=== PATIENT | female | born 1995 | race Caucasian/White ===

== ENCOUNTER 2023-09-18 17:36 | Inpatient (IN) | payer OTHER, SELFPAY ==
[2023-09-18 14:29] VITALS: BP 166/115
--- NOTE | 2023-09-18 14:57 | ED.GENMED ---
History of Present Illness
General
Chief Complaint: Musculo-Skeletal Complaint
Time Seen by Provider: 09/18/23 14:57
Travel History
Have you had any contact with someone who has COVID-19?: No
Do you have any symptoms of coronavirus? Fever > 100 degrees, chills, cough, shortness of breath, sore throat, loss of taste or smell, muscle aches, or headache?: No
History of Present Illness
History of Present Illness:
HPI: Patient presents due to concerns of pain and swelling to the left second digit. She reports fevers over the last 3 nights. She has been to urgent care twice where they placed her on Levaquin and clindamycin. She contacted Dr. Howard's
office who told her to come in here for further evaluation. She tells me that she is had surgery with one of Dr. Taveras's associates with [facility] a few months ago. She reports pain to the affected digit along with decreased sensation of
the radial aspect of the affected digit.
EXAM:
GENERAL: Well appearing in mild distress
HEENT: Poor dentition
CARDIOVASCULAR: No murmurs, tachycardic heart rate, regular rhythm, No chest wall tenderness
PULMONARY: No respiratory distress, breath sounds are clear and equal
ABDOMEN: Soft with no peritoneal signs, no tenderness
NEUROLOGIC: Excellent strength all extremities, no coordination deficits, there is decreased sensation to the radial aspect of the left second digit
PSYCHIATRIC: Appropriate mental status, normal insight and judgement
EXTREMITIES: There is some concern for flexor tenosynovitis to the left second digit as there is diffuse swelling and there is marked tenderness along the flexor tendon. There is also dorsal linear erythema progressing to the mid forearm.
SKIN: Multiple surgical scars noted to the upper extremities
TIME OF INITIAL ENCOUNTER: 3 PM
NUMBER AND COMPLEXITY OF PROBLEMS ADDRESSED AT THE ENCOUNTER
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
� Acute Exacerbation and/or Progression of Chronic Illness: This is an acute problem
� Differential Diagnosis includes: Flexor tenosynovitis, bacteremia, sepsis, cellulitis
AMOUNT AND/OR COMPLEXITY OF DATA TO BE REVIEWED AND ANALYZED
� I performed an independent evaluation of and my interpretation is:
EKG:
CT:
X-rays:
Laboratory Studies: White count 6.0, lactic 2.2 but patient is on metformin, CRP slightly elevated 12.2, glucose 326
Other:
� Review of other/old records: I reviewed discharge summary from last year that showed she was admitted here with a hemoperitoneum from a ruptured left ovarian cyst
� Clinical information was obtained by an independent historian: None needed
� Prescriptions/Medications Considered but not given:
� Further testing considered but not performed:
RISK OF COMPLICATIONS AND/OR MORBIDITY OR MORTALITY OF PATIENT MANAGEMENT
� Social determinants of health affecting care: Lives at home
� Discussion with other providers: Interventional radiology for line placement as well as Dr. Howard. Dr. Howard recommends IV antibiotics and admission to hospitalist service.
� Escalation of care including admission/observation vs risk of discharge considered: Upon arrival, the patient is found to be tachycardic. She reports fevers at home but is currently afebrile. I do have concerns for flexor
tenosynovitis. Since the patient states that Dr. Howard office sent her in, I did send a message to Dr. Howard. He recommends admission to hospitalist for IV antibiotics and he will see in consultation. The patient has requested Dilaudid
multiple times. I did give IV doses as she does have a seemingly painful condition which does appear to be acute
Past History
Past History
ED Past Medical History: HTN, Hypercholesterolemia, IDDM and Other (Deep vein thrombosis/PE, Kidney stones, UTI, Ulcers,)
ED Past Surgical History: Appendectomy, Orthopedic and Other (Tympanostomy tubes, wisdom teeth extraction. Nasal surgery)
Patient has exhibited threatening behavior?: No
PSI?: No
Social History
Tobacco: Non-smoker
Alcohol: None
Drug: None
Personal: Single
Living: with family
Family History
Family History: Other (Noncontributory)
Phy Exam
Physical Exam
Physical Exam:
See HPI
Course
Orders/Labs/Results
Orders:
Orders
09/18/23 Breakfast
2200 calorie (18 carb) Diabetic
09/18/23 Dinner
2200 calorie (18 carb) Diabetic
09/18/23 16:00
Blood Culture Q30M
ANAMIKA Source: Blood/Venous
Specimen Description:
VANCOMYCIN Pharmacy to Dose [VANCOCIN Pharmacy to Dose] 1 each Pharmacy To Prepare [Call Pharmacy To Prepare] 0 ml IV PER PROTOCOL
09/18/23 16:08
Basic Metabolic Panel Urgent
CRP [C-Reactive Protein] Urgent
Complete Blood Count/With Diff Urgent
Lactic Acid Q4H
Comment: CANCEL 2nd LACTIC ACID IF 1st LACTIC ACID IS LESS THAN 2
Blood Culture Q30M
ANAMIKA Source: Blood/Venous
Specimen Description:
09/18/23 16:33
Diphenhydramine [Benadryl] 50 mg IV NOW STA
HYDROmorphone [Dilaudid] 1 mg IV NOW STA
09/18/23 16:40
Vancomycin [Vancocin] 2,000 mg 0.9% Sodium Chloride 500 ml [Nss] 500 ml IV NOW
09/18/23 17:05
HYDROmorphone [Dilaudid] 1 mg IV NOW STA
09/18/23 17:18
Prothrombin Time Urgent
09/18/23 17:20
Admit/Transfer Patient As Directed
Co-Sign Provider:
Level of Care: Inpatient admission
Assign to:: Telemetry
Physician / Group: do
Diagnosis: cellulitis
Reason for Telemetry: Other
Other Reason for Telemetry: sepsis
Date to Stop Telemetry: 09/20/23
Time to Stop Telemetry: 11:00
Reason for Hospitalization: cellulitis
Expected length of stay greater than two midnights?: Yes
ELOS- Estimated Length of Stay in days: 3
I certify the patient meets the requirements for IP care: Yes
09/18/23 17:23
Code Status As Directed
Resuscitation Status: Full Code
09/18/23 19:30
Lactic Acid Q4H
Comment: CANCEL 2nd LACTIC ACID IF 1st LACTIC ACID IS LESS THAN 2
09/18/23 19:40
0.9% Sodium Chloride 1000 ml [Nss] 1,000 ml IV 80 mls/hr
Acetaminophen [Tylenol] 650 mg PO Q4HPRN PRN
Cyclobenzaprine HCl [Flexeril] 10 mg PO TIDPRN PRN
Dextrose 50%-Water [Dextrose 50% Syringe] 12.5 grams IV [id number] PRN
Glucagon [GlucaGen] 1 mg IM PRN PRN
HYDROmorphone [Dilaudid] 2 mg IV Q3HPRN PRN
Lorazepam [Ativan] 1 mg PO Q8H
Naloxone [Narcan] 0.4 mg IV ONCE PRN PRN
Ondansetron Injectable [Zofran] 4 mg IV Q6HPRN PRN
Oxycodone [Roxicodone] 30 mg PO Q4HPRN PRN
Warfarin [Coumadin] 5 mg PO QPM
09/18/23 19:40
ORTHOPEDIC CONSULT Routine
Consulting Provider: Syed Howard
Was physician already notified: Yes
Activity As Directed
Activity Level: Out of Bed-Early Mobility
Bedside Glucose Monitoring As Directed
Frequency: AC&HS
Comment: Change to q6h if pt on TPN, tube feeding or not eating
Intake/ Output As Directed
Frequency: Per unit guidelines
Vital Signs As Directed
Frequency: Per unit guidelines
09/18/23 19:58
Budesonide/Formoterol 160/4.5 [Symbicort 160/4.5 Mcg Inhaler] 2 puff INH R BID PRN
09/18/23 20:00
Ferrous Sulfate [Feosol] 325 mg PO BID
MetroNIDAZOLE 500 MG/100 ML [Flagyl 500 mg] 100 ml IV Q8H
insulin glargine [Lantus Solostar U-100 Insulin] 40 unit SC BID
09/18/23 22:00
Clonidine [Catapres] 0.1 mg PO TID
Melatonin 9 mg PO HS
09/19/23 00:00
Gabapentin [Neurontin] 900 mg PO Q8
09/19/23 06:00
Basic Metabolic Panel IN AM
Complete Blood Count/No Diff IN AM
Glycohemoglobin (HgbA1c) IN AM
Prothrombin Time IN AM
09/19/23 07:30
Insulin Aspart Corrective Mod [Novolog Flexpen-Moderate Resistance] See Protocol SC AC
Insulin Aspart Pen [Novolog Flexpen] 15 units SC AC
09/19/23 08:00
Atorvastatin [Lipitor] 20 mg PO DAILY
Bupropion(24Hr)Extended Releas [WELLBUTRIN XL (24 hour extended release)] 150 mg PO DAILY
Clopidogrel Bisulfate [Plavix] 75 mg PO DAILY
09/20/23 06:00
Basic Metabolic Panel IN AM
Complete Blood Count/No Diff IN AM
Prothrombin Time IN AM
09/20/23 11:00
DC Protocol for Telemetry ONCE
09/21/23 06:00
Basic Metabolic Panel IN AM
Complete Blood Count/No Diff IN AM
Prothrombin Time IN AM
09/22/23 06:00
Basic Metabolic Panel IN AM
Complete Blood Count/No Diff IN AM
Prothrombin Time IN AM
09/23/23 06:00
Complete Blood Count/No Diff IN AM
Prothrombin Time IN AM
Abnormal Lab Results
09/18/23
16:08
Hct 35.8 L %
(37.0-47.0)
MCV 75.7 L fL
(81.0-99.0)
MCH 25.8 L pg
(27.0-31.0)
Lymphocytes % 19.4 L %
(20.5-51.1)
Eosinophils % 7.8 H %
(0-6)
Sodium 132 L mmol/L
(135-145)
BUN 6 L mg/dl
(7-17)
Creatinine 0.5 L mg/dL
(0.6-1.0)
Glucose 334 H mg/dl
(70-99)
Lactic Acid 2.2 H mmol/L
(0.7-2.0)
C-Reactive Protein 12.20 H mg/L
(0.0-10.00)
09/18/23 16:08
09/18/23 16:08
Vital Signs
Initial and Last Documented VS:
Initial Vital Signs
Temp Pulse Resp BP Pulse Ox
99.2 F 130 18 166/115 97
09/18/23 14:29 09/18/23 14:29 09/18/23 14:29 09/18/23 14:29 09/18/23 14:29
Last Documented Vital Signs
Temp Pulse Resp BP Pulse Ox
99.5 F 129 18 153/100 100
09/18/23 19:40 09/18/23 19:40 09/18/23 19:40 09/18/23 19:40 09/18/23 19:40
*Critical Care Note
Total Time (30-74mins, 75-104mins- exclusive of procedures): Not Applicable
ED Attending Note
-
Portions of this chart may have been created with voice recognition software.� Occasional wrong word or��sound alike� substitutions may have occurred due to the inherent limitations of voice recognition software.
Discharge Plan
Departure
Patient Disposition: Admit
Date of Disposition: 09/18/23
Time of Disposition: 16:38
Presentation/result/management discussed w/ accepting MD/DO: Hospitalist
Discharge Problem:
Cellulitis
Interventions
Interventions:
*Risk Screen - Suicide Last Done: 09/18/23 14:33
*General Assessment Last Done: 09/18/23 14:33
*Neglect/Abuse Screening Last Done: 09/18/23 14:33
ED- Fall Risk Assessment Last Done: 09/18/23 15:35
*ED COVID-19 Vaccine History Last Done: 09/18/23 14:34
*Nursing Disposition Last Done: 09/18/23 18:31
ED-Musculoskeletal Assessment Last Done: 09/18/23 15:35
Discharge Date and Time
Discharge Date/Time: 09/18/23 19:30
[2023-09-18 15:34] VITALS: BMI 39.0
--- NOTE | 2023-09-18 16:12 | EDRN ---
Pt states she is leaving. Pt is upset and states (about her IV saying) it is no good only working barely and you can't put Vanco throught that.' Pt continues saying, 'I want to leave. I am going to leave as I'm in a lot of pain. My hand is really
hurting and the IV in my other arm too.' Pt talking on phone saying 'Pain is only getting worse and they cannot do anything about it.'
--- NOTE | 2023-09-18 16:16 | EDRN ---
Pt states, (about Dr. Raphael) 'he doesn't care. He has other patients. He doesn't care if I leave.' Pt is on phone w/ someone saying these things while crying loudly.
--- NOTE | 2023-09-18 16:18 | EDRN ---
Pt stated to me 'its falling out.' Pt was picking at the dressing and it was slightly loose. Pt is now in BR on phone talking in a very loud voice. Dr. Raphael to room to see pt just as pt left bed and went into BR. Pt now stating, 'I
cannot stand this pain.'
--- NOTE | 2023-09-18 16:20 | EDRN ---
Pt was informed that physician was in to see her. Pt continues to speak to someone on the phone. This RN informed pt that DR. Raphael was in to see her and when she is out of BR he will return. Pt said to me, 'I am going to pee and then I'm
leaving.' Pt stating 'this is all fucking shit.'
[2023-09-18 16:22] LABS: % Basophils 0.7 % (0-2); % Eosinophils 7.8 % (0-6); % Immature Granulocytes 0.3 % (0-0.5); % Lymphocytes 19.4 % (20.5-51.1); % Neutrophils 65.8 % (42.2-75.2); Absolute Eosinophils 0.5 10^3/uL (0-0.7); Absolute Lymphocytes 1.2 10^3/uL (1.2-3.4); Absolute Monocytes 0.4 10^3/uL (0.1-0.6); Hematocrit 35.8 % (37.0-47.0); Hemoglobin 12.2 g/dL (12.0-16.0); Mean Corp Hgb Conc. 34.1 g/dL (33.0-37.0); Mean Corpuscular Hgb 25.8 pg (27.0-31.0); Mean Corpuscular Volume 75.7 fL (81.0-99.0); Mean Platelet Volume 9.3 fL (7.4-10.4); Nucleated Red Blood Cells % 0 %; Platelet Count 275 10^3/uL (130-400); Red Blood Cell Count 4.73 10^6/uL (4.20-5.40); Red Cell Dist. Width 13.9 % (11.5-14.5)
--- NOTE | 2023-09-18 16:23 | EDRN ---
satellite tv technician was here to check on pt's medications. I asked pt if she could do a med rec w/ pt. Pt stated, 'I am not fucking talk to her.' Pt continues to talk on her phone.
--- NOTE | 2023-09-18 16:25 | EDRN ---
Pt just stated to person on phone, 'I'm going to take my own IV out. Dr. Henson in room w/ pt at this time.
--- NOTE | 2023-09-18 16:28 | PHANOTE ---
Med Rec Note:
Attempted to interview pt prior to IV placement, pt was able to confirm 2 of her medications. Pt refused to continue interview after IV placement.
Home med list compiled from Dr Bunn, unsure if pt is still taking medications reported from prior interview with pharmacy from 03/13/23. Those medications are left unconfirmed, along with medications from in Dr Bunn.
Asked to continue interview again, after reading notes from the provider. Pt refused interview again.
Charge was consulted and was able to obtain pt's medication history.
--- NOTE | 2023-09-18 16:29 | EDRN ---
Natividad Lion in speaking w/ pt about pain medication. Pt stated to Dr. Henson 'I need 2mg of Dilaudid.'
--- NOTE | 2023-09-18 16:31 | EDRN ---
Pt has decided to stay as IV pain medication is ordered.
[2023-09-18 16:37] LABS: Lactic Acid 2.2 mmol/L (0.7-2.0)
--- NOTE | 2023-09-18 16:38 | EDRN ---
Pharmacy called to mix and send Vancomycin at this time.
[2023-09-18 16:46] LABS: Blood Urea Nitrogen 6 mg/dl (7-17); Calcium 9.2 mg/dl (8.4-10.2); Carbon Dioxide 23 mmol/L (22-30); Chloride 98 mmol/L (98-107); Estimated Creatinine Clearance > 125 ml/min; Glucose 334 mg/dl (70-99); Sodium 132 mmol/L (135-145); eGFR > 60.00
[2023-09-18] MEDS: BENADRYL 50 MG IV (16:48)
[2023-09-18] MEDS: DILAUDID 1 MG IV ×3 (16:48→18:14)
--- NOTE | 2023-09-18 16:48 | EDRN ---
Pt was administered 2nd dose of dilaudid at this time. Pt was observed, after IV checked w/ good blood return and flushed w/ ease, pulling on IV at its hub saying to this nurse, 'I have to pull back on this as the vancomycin ledesma.'
--- NOTE | 2023-09-18 16:50 | HPS.HSE ---
Addendum entered and electronically signed by Alan Rock MD 09/18/23 17:57:
I have personally seen and examined the patient, and agree with the plan of care as documented by JAYLENE Pena.
Advance care planning discussed, patient is a full code.
All other issues as outlined by the advanced care practitioner.
Addendum entered and electronically signed by Alan Rock MD 09/18/23 17:39:
27-year-old female with a past medical history of morbid obesity, type 2 diabetes, anxiety, factor V Leyden, PE/DVT on Coumadin, May-Thurner syndrome, and chronic constipation presents with worsening redness, pain of her left second finger. Patient
states that she underwent a left trigger finger release in the hospital at [place] recently, that got infected. Despite finishing a course of clindamycin and Levaquin 4 days ago, her left second digit has become more erythematous, swollen, and is
not able to bend. She reports fevers at night. She has many drug allergies.
Will treat with IV vancomycin, IV Flagyl. Consult orthopedic surgery.
Patient reports she takes oxycodone 30 mg every 4 hours as needed, and while in the hospital at [place], she was given Dilaudid 3 mg IV as needed.
Will continue her oxycodone 30 mg every 4 hours as needed, I can only order her Dilaudid 2 mg IV every 3 hours here, [employer] has a limit.
Will request records from [facility].
Total time spent to see the patient on the floor, examine the patient, review data and lab results, discuss treatment plan with patient, nursing staff around 75 minutes.
Original Note:
Family Physician
-
Family Physician: Jose Alejandro Fox
Chief Complaint
-
fever
left hand redness
History of Present Illness
27 year old with PMH for Chronic Pain Syndrome,Hypertension,Factor V Leiden Deficiency,May-Thurner Syndrome.DM-II with Insulin Pump,Nephrolithiasis,Urinary Retention, Chronic Constipation presented to us with left hand pain, redness and swelling to
the left second digit. patient stated, she was on Levaquin and clindamycin for 2 weeks. But her symptoms persisted. She contacted Dr. Howard's office who told her to come in here for further evaluation. She had surgery for trigger finger couple
months ago. Since then, she noticed decreased sensation. Patient stated fever of 101 for last 3 nights. Patient denied runny nose, nasal congestion, cough. Patient denied headache, dizziness, syncopal episode. Patient denied chest pain, short
of breath. Denied abdominal pain nausea, vomiting. Stated diarrhea from antibiotics denied dysuria hematuria.
Patient initiated on IV vancomycin in ER. Admitting for further management.
Medical History
Past Medical History
Past Medical History: Reports Other
Additional Past Medical History:
Chronic Pain Syndrome
Hypertension
Factor V Leiden Deficiency
May-Thurner Syndrome
DM-II with Insulin Pump
Nephrolithiasis
Urinary Retention
Chronic Constipation
Obesity
Past Surgical History: Reports Other
Additional Past Surgical History:
Appendectomy
Sinus Surgery x 2
-trigger finger surgery
Social History
Tobacco: Non-smoker
Alcohol: None
Drug: None
Family History
Family History: Not pertinent
Allergies / Home Medications
Allergies reflects when Allergies were last updated in [facility].
Home Medications with original date entered in [facility]
Allergy/Medication List:
Allergies
Allergy/AdvReac Type Severity Reaction Status Date / Time
amoxicillin [Amoxicillin] Allergy Shortness Verified 09/18/23 14:27
of Breath
cephalexin Allergy tongue Verified 09/18/23 14:27
swelling/but
tolerated
cefepime,ceftriaxone,
etc.
haloperidol [From Haldol] Allergy Anaphylaxis Verified 09/18/23 14:27
haloperidol lactate Allergy Anaphylaxis Verified 09/18/23 14:27
[From Haldol]
Iodinated Contrast Media Allergy Itching Verified 09/18/23 14:27
ketorolac tromethamine Allergy Anaphylaxis Verified 03/13/23 13:59
[From Toradol]
linezolid [From Zyvox] Allergy Shortness Verified 09/18/23 14:27
of Breath
nystatin Allergy Rash Verified 09/18/23 14:27
Penicillins Allergy Shortness Verified 09/18/23 14:27
of Breath
Sulfa (Sulfonamide Allergy Hives Verified 09/18/23 14:27
Antibiotics)
sulfamethoxazole Allergy Hives Verified 09/18/23 14:27
[From Bactrim]
tramadol Allergy Anaphylaxis Verified 09/18/23 14:27
trimethoprim [From Bactrim] Allergy Hives Verified 09/18/23 14:27
Home Medications
clonidine HCl 0.1 mg tablet 0.1 mg PO TID Blood Pressure 07/27/18
gabapentin 300 mg capsule 900 mg PO Q8H Pain 10/27/18
bupropion HCl 150 mg 24 hr tablet, extended release 150 mg PO DAILY Depression 11/28/22
clopidogrel 75 mg tablet 75 mg PO DAILY Blood Clot Prevention/Tx 11/28/22
cyclobenzaprine 10 mg tablet 10 mg PO TIDPRN PRN muscle spasms 11/28/22
lorazepam 1 mg tablet 1 mg PO Q8H Mental Health/Anxiety 11/28/22
mometasone-formoterol HFA 200 mcg-5 mcg/actuation aerosol inhaler (Dulera) 2 puff inhalation R BID PRN Lung/Breathing Issues 11/29/22
insulin aspart U-100 100 unit/mL (3 mL) subcutaneous pen 0 - 32 sliding scale dose SC AC 03/13/23
insulin glargine 100 unit/mL (3 mL) subcutaneous pen (Lantus Solostar U-100 Insulin) 40 unit SC BID 03/13/23
warfarin 5 mg tablet 5 mg PO QPM Blood Clot Prevention/Tx 03/13/23
atorvastatin 20 mg tablet 20 mg PO DAILY 09/18/23
ferrous sulfate 325 mg (65 mg iron) tablet 325 mg PO BID 09/18/23
melatonin 3 mg tablet 9 mg PO HS 09/18/23
oxycodone 15 mg tablet 30 mg PO Q8H PRN moderate pain 09/18/23
Review of Systems
-
Constitutional: Reports Fever
EENT: Reports No Symptoms
Respiratory: Reports No Symptoms
Cardiac: Reports No Symptoms
Abdomen/GI: Reports No Symptoms
: Reports No Symptoms
Musculoskeletal: Reports Other (left hand redness, swelling)
Skin: Reports No Symptoms
Neurological: Reports No Symptoms
Endocrine: Reports No Symptoms
Hematologic/Lymphatic: Reports No Symptoms
Psych: Reports No Symptoms
Physical Exam
Vital Signs
Vital Signs
Temp Pulse Resp BP Pulse Ox
99.2 F 130 18 166/115 97
09/18/23 14:29 09/18/23 14:29 09/18/23 14:29 09/18/23 14:29 09/18/23 14:29
Physical Exam
General: Well Developed, Well Nourished and No Apparent Distress
HEENT: NormoCephalic, Moist mucous membranes and Atraumatic
Respiratory: Clear
Cardiac: S1/S2 and Regular Rhythm; No Murmur or Rub
GI: Soft, Non Tender, Non Distended and Normal Bowel Sounds; No Organomegaly
Rectal: Deferred by Provider
Musculoskeletal: No Clubbing, No Cyanosis and No Edema
Skin: Rash and Other (left hand, finger redness)
Neuro: AO x 3 and Nonfocal/grossly intact
Psych: Calm
Laboratory Results
-
09/18/23 16:08
09/18/23 16:08
Laboratory Results
Lactic Acid 2.2 mmol/L (0.7-2.0) H 09/18/23 16:08
Data Reviewed
-
Lab Data: Labs Reviewed by me
Impression/Plan
-
#sepsis/ left hand redness concern for flexor tenosynovitis of left 2nd digit
-lactic 2.2, CRP 12.20, tachy
-trend lactic
-IV Vanco and Flagyl
-Tylenol as needed for fever
-Fluids continued for hydration
-Dilaudid prn for apin
-Orthopedics consulted
# Hypertension emergency
-Blood pressure elevated in ER
-Clonidine continued
#LLE DVT
Factor V Leiden Deficiency
May-Thurner Syndrome
-Coumadin continued
-Daily PT/INR
# Chronic pain
Dilaudid 1.5 every 3 hours for pain
-Gabapentin continued
#DM-II with Hyperglycemia
-Lantus 40 units twice a day
-Sliding scale
#Anxiety / Depression
�- Continue Wellbutrin, gabapentin
-Lorazepam as needed Anxiety
�
#Obesity due to excess calories and insulin resistance
�- Affects all aspects of care.
�- Encourage healthy diet and increased activity with goal of weight loss.
#DVT Prophylaxis:�Coumadin
#Code Status:�Full
[2023-09-18] MEDS: VANCOCIN 540 MG IV (16:55)
--- NOTE | 2023-09-18 16:59 | EDRN ---
Cecy Odom SNAKER in room w/ pt. Pt insisted on having vancomycin run at [address] below 270 mL per hour per this hospital's policy.
--- NOTE | 2023-09-18 17:34 | EDRN ---
Vzncommycin stopped as IV infiltrated. Pt admitted to pulling back on IV. This RN checked IV and when flushed w/ tiny amount area at end of catheter swelled. Once IV was out pt said to this nurse, 'you were nice to me. Now you are horrible to me.' I
informed pt that Dilaudid could not be administered as IV not functioning. Pt said to me, 'Now that My IV is out I am leaving.' This RN was asked just prior to that to call Min though pt leaving so [facility] not called. Per Yashira RN pt was walking
down hallway saying she is looking for the charge nurse.
--- NOTE | 2023-09-18 17:47 | EDRN ---
Pt returned to room w/ gang pusher Ann T and is back in room at this time.
--- NOTE | 2023-09-18 17:53 | WOUNDNOTE ---
WOUND/SKIN CARE note: Pt identified by name and .
L hand and wrist streaking.
L index finger and pad at base of finger, palmar surface.
L index finger dorsal aspect w/ streaking noted on L hand dorsal aspect.
Streaking from finger to wrist dorsal aspect.
--- NOTE | 2023-09-18 17:56 | W.PN.UPDATE ---
Update Note
Progress Note Update
For billing purposes
--- NOTE | 2023-09-18 18:31 | EDRN ---
Pt to [facility] at this time.
--- NOTE | 2023-09-18 19:24 | W.PN.IRAD.PR ---
Procedure Note
-
7 Fr triple lumen CVC placed RIJ under US and fluoro guidance. As with prior placements, difficult secondary to extensive scar tissue. Catheter is ready for use.
[2023-09-18 19:31] VITALS: BP 155/90; BP_SYST 120
[2023-09-18 19:40] VITALS: BP 153/100; BMI 36.5
--- NOTE | 2023-09-18 20:13 | W.PN.UPDATE ---
Update Note
Progress Note Update
Called to the patient`s as the patient is requesting to leave AMA. Once I arrived to the room, patient is loud and using inappropriate language against one of the nursing staff. Patient refused to stop cursing/ using inappropriate language against
one of the nursing staff and asking her to leave the room.
Patient decided to stay after I reviewed ordered meds with her and currently her care is assigned to a different staff member with no issues.
--- NOTE | 2023-09-18 20:28 | PHA.VAN.IN ---
Assessment
- Assessment
Renal Function: Appears similar to baseline
Concomitant Antimicrobials: FLAGYL
- Previous Dosing Experience
Previous Regimen: 1GM IV Q8H
Date of Regimen: 11/29/22
Provided Trough of: 12.3
Provided AUC of: 484 PREDICTED
Patient's SCR is: Similar to previous dosing experience
AUC Dosing Plan
- Dosing Variables
Dosing Weight (kg): 99.4
Dosing CrCl (ml/min): 125
Vd coefficient (L/kg): 0.6
- Empiric Dosing
Initial / Loading Dose: 2GM
Maintenance Regimen: 1GM IV Q8H
Estimated AUC (mcg*h/mL): 490
Estimated Peak (mcg*h/mL): 29
Estimated Trough (mcg/ml): 13.6
Estimated Half Life (H): 6.4
Pharmacokinetics Vancomycin I
- -
Patient Age: 27
Patient Sex: Female
Vancomycin Day #: 1
Indication: Skin And Soft Tissue (FLEXOR TENOSYNOVITIS/SEPSIS)
Pertinent Antimicrobial Allergies:
Allergies
Penicillins Allergy (Verified 09/18/23 14:27)
Shortness of Breath
Sulfa (Sulfonamide Antibiotics) Allergy (Verified 09/18/23 14:27)
Hives
amoxicillin [Amoxicillin] Allergy (Verified 09/18/23 14:27)
Shortness of Breath
cephalexin Allergy (Verified 09/18/23 14:27)
tongue swelling/but tolerated cefepime,ceftriaxone, etc.
sulfamethoxazole [From Bactrim] Allergy (Verified 09/18/23 14:27)
Hives
trimethoprim [From Bactrim] Allergy (Verified 09/18/23 14:27)
Hives
Height / Weight:
Height 5 ft 5 in
Actual Weight 99.45 kg
Pertinent Past Medical History: IDDM, CHRONIC PAIN SYNDROME
- Vital Signs / Lab Results
Temp Pulse Resp BP Pulse Ox
99.5 F 129 18 153/100 100
09/18/23 19:40 09/18/23 19:40 09/18/23 19:40 09/18/23 19:40 09/18/23 19:40
Lab Results - Hematology
09/18/23
16:08
WBC 6.0
Lab Results - Chemistry
09/18/23
16:08
BUN 6 L
Creatinine 0.5 L
Estimated Creat Clear > 125
09/18/23
16:08
Lactic Acid 2.2 H
[2023-09-18] MEDS: DILAUDID 2 MG IV ×2 (20:33→23:43)
[2023-09-18 20:50] LABS: Glucose - Point of Care 326 mg/dl (70-99)
[2023-09-18] MEDS: ATIVAN 1 MG PO (21:13)
[2023-09-18] MEDS: COUMADIN 5 MG PO (21:13)
[2023-09-18] MEDS: FEOSOL 325 MG PO (21:13)
[2023-09-18] MEDS: SENOKOT-S 2 TABLET PO (21:14)
[2023-09-18] MEDS: FLAGYL 500 MG 100 IV (21:14)
[2023-09-18] MEDS: MIRALAX PO ×2 (21:14→21:33)
[2023-09-18] MEDS: LANTUS 0.400000000000000022 UNITS SC (21:54)
[2023-09-18] MEDS: NSS 1000 IV (21:55)
[2023-09-18] MEDS: ROXICODONE 30 MG PO (21:56)
[2023-09-18] MEDS: CATAPRES 0.100000000000000006 MG PO (22:40)
[2023-09-18] MEDS: MELATONIN 9 MG PO (22:41)
--- NOTE | 2023-09-18 22:51 | VATNOTE ---
Paged by PCN to redress IJ site due to lifting of dressing. Patient adamant about not changing the pressure dressing since she just had the line placed. Patient keeps touching dressing which could be why the dressing is lifting up, instructed
patient to try not to touch site/dressing to try to reduce risk of infection. dressing reinforced. PCN at bedside.
[2023-09-18 23:00] VITALS: BP 150/100
[2023-09-18] MEDS: NEURONTIN 900 MG PO (23:43)
[2023-09-19] MEDS: DILAUDID 2 MG IV ×7 (02:52→21:24)
[2023-09-19] MEDS: ZOFRAN 4 MG IV (02:59)
[2023-09-19 03:00] VITALS: BP 153/93
[2023-09-19] MEDS: FLAGYL 500 MG 100 IV ×3 (04:40→19:34)
[2023-09-19] MEDS: ATIVAN 1 MG PO ×3 (04:42→19:18)
[2023-09-19] MEDS: FLEXERIL 10 MG PO ×2 (05:57→18:03)
[2023-09-19] MEDS: VANCOCIN 200 IV ×3 (06:05→21:27)
--- NOTE | 2023-09-19 06:21 | PTCARENOTE ---
Patient arrived on unit approximately 1933 via stretcher from ED. Patient ambulate from stretcher to bed. Immediately patient repeatedly stated 'I want to leave and I want the IV out'. Patient began using expletives repeatedly at this nurse asking
about pain meds. Patient refused any encouragement or education. HOT IRON WORKER made aware.
1949 HOT IRON WORKER in to see patient who refuses to sign AMA, continues to use expletives and inappropriate languages. Patient eventually agreed to stay after at length discussion with HOT IRON WORKER about meds.
2114 Patient became loud and using expletives again when educated about BS being 326. Patient requesting to speak to supervisor joiners. Lead Warehouse Associate in to see patient.
Approximately 2244 IV team called requesting to reinforce dressing to new R IJ site. IV team in to reinforce dressing.
[2023-09-19 07:41] LABS: Hemoglobin 11.1 g/dL (12.0-16.0); Mean Corp Hgb Conc. 33.6 g/dL (33.0-37.0); Mean Corpuscular Hgb 26.6 pg (27.0-31.0); Mean Corpuscular Volume 78.9 fL (81.0-99.0); Platelet Count 223 10^3/uL (130-400); Red Blood Cell Count 4.18 10^6/uL (4.20-5.40); Red Cell Dist. Width 13.8 % (11.5-14.5); White Blood Cell Count 4.2 10^3/uL (4.8-10.8)
[2023-09-19 07:45] VITALS: BP 149/87
[2023-09-19 07:52] LABS: INR 1.34; PT 16.4 Sec (11.4-14.6)
[2023-09-19 07:53] LABS: Lactic Acid 0.9 mmol/L (0.7-2.0)
[2023-09-19 07:55] LABS: Blood Urea Nitrogen 3 mg/dl (7-17); Calcium 8.7 mg/dl (8.4-10.2); Carbon Dioxide 27 mmol/L (22-30); Chloride 104 mmol/L (98-107); Estimated Creatinine Clearance > 125 ml/min; Glucose 188 mg/dl (70-99); Potassium 3.3 mmol/L (3.5-5.1); Sodium 133 mmol/L (135-145); eGFR > 60.00
--- NOTE | 2023-09-19 07:55 | W.PN.HOSP.TC ---
Today's Communication/Plan
-
Hold plavix/coumadin
NPO after midnight for poss OR tomorrow
Continue IV antibiotics
Assessment / Plan
Assessment / Plan
HPI: 27-year-old female with a past medical history of morbid obesity, type 2 diabetes, anxiety, factor V Leyden, PE/DVT on Coumadin, May-Thurner syndrome, and chronic constipation presents with worsening redness, pain of her left second finger.
Patient states that she underwent a left trigger finger release in the hospital at [place] recently, that got infected. Despite finishing a course of clindamycin and Levaquin 4 days ago, her left second digit has become more erythematous, swollen,
and is not able to bend. She reports fevers at night. She has many drug allergies.
#Cellulitis of left second finger with concern for flexor tenosynovitis
#History of recent left trigger finger release at [facility] in [place]
No leukocytosis or left shift, no documented fever upon admission
Appreciate orthopedic surgery input, for possible OR tomorrow
Continue IV vanc/flagyl, add oral benadry to be given 1 hour prior to antibiotics for complaints of itching
Right IJ placed 09/17
Records requested from [facility]
#Opioid Use Disorder
Patient has documented history of signing out of facilities AMA when opioids and IV benadryl are not provided
She requests combination IV Benadryl and opioids which is known combination of abuse
Would make every effort to avoid further IV Benadryl unless related to obtaining contrast (known allergy)
Continue oxycodone 30 mg every 4 hours, Dilaudid 2 mg IV every 3 hours�[employer] will not let you increase the dose
Ordered Narcan 0.4 mg IV as needed
#Anxiety / Depression
�Continue Wellbutrin, gabapentin, Ativan, melatonin
#LLE DVT
#Factor V Leiden Deficiency
#May-Thurner Syndrome
Hold Coumadin/plavix for possible OR tomorrow
#DM-II with Hyperglycemia
Continue home Lantus 40 units twice a day, started NovoLog 15 units AC 3 times daily
#Opioid-induced constipation
Started on MiraLAX twice a day, senna S twice a day
#Benign Hypertension
Continue clonidine 0.1 mg 3 times daily
#Hyperlipidemia
Continue statin
�
#Obesity due to excess calories and insulin resistance
Affects all aspects of care
Encourage healthy diet and increased activity with goal of weight loss
DVT prophylaxis�SCDs due to OR
Full code
Total time spent to see the patient on the floor, examine the patient, review data and lab results, discuss treatment plan with patient, nursing staff around 55 minutes.
Physical Exam
General: Morbidly obese, no acute distress
HEENT: Normocephalic, Atraumatic, EOMI, MMM
Respiratory: Clear to Auscultation bilaterally
Cardiac: Normal S1/S2, Regular Rate and Rhythm
GI: Soft, Nontender, Nondistended, Normal Bowel Sounds
Extremities: No Clubbing, Cyanosis, or Edema
Musculoskeletal:
Left second index finger in flexion, with diffuse erythema, and tenderness
Unable to extend finger
Neuro: Nonfocal/Grossly Intact
Psych: Intermittently agitated and argumentative
Anticipated Discharge: > 48 hours
Subjective/Interval History
-
Date of Service: September 19, 2023
Patient reports continued pain and swelling of her left second finger, with inability to bend. No fever, no vomiting.
Objective Data
-
Labs:
Laboratory Results
09/19/23
07:19
WBC 4.2 L
Hgb 11.1 L
Hct 33.0 L
Plt Count 223
PT Pending
INR Pending
Sodium Pending
Potassium Pending
Chloride Pending
Carbon Dioxide Pending
BUN Pending
Creatinine Pending
Glucose Pending
Calcium Pending
Vital Signs:
Vital Signs
Temp Pulse Resp BP Pulse Ox
97.6 F 98 16 153/93 100
09/19/23 03:00 09/19/23 03:00 09/19/23 03:00 09/19/23 03:00 09/19/23 03:00
I&O
09/18/23 09/19/23 09/20/23
06:59 06:59 06:59
Intake Total 1413 / 1413
Balance 1413 / 1413
[2023-09-19] MEDS: SENOKOT-S PO (08:07)
[2023-09-19] MEDS: MIRALAX PO ×2 (08:07→19:35)
[2023-09-19] MEDS: FEOSOL 325 MG PO ×2 (08:11→19:33)
[2023-09-19] MEDS: CATAPRES 0.100000000000000006 MG PO ×3 (08:11→21:27)
[2023-09-19] MEDS: NEURONTIN 900 MG PO ×3 (08:11→23:37)
[2023-09-19] MEDS: PLAVIX 75 MG PO (08:12)
[2023-09-19] MEDS: WELLBUTRIN XL (24 hour extended release) 150 MG PO (08:12)
[2023-09-19] MEDS: LANTUS 0.400000000000000022 UNITS SC ×2 (08:13→20:20)
[2023-09-19 08:28] LABS: Glycohemoglobin (HgbA1c) 8.7 % (4.0-5.6)
[2023-09-19 08:33] LABS: Glucose - Point of Care 209 mg/dl (70-99)
[2023-09-19] MEDS: NOVOLOG FLEXPEN 15 UNITS SC ×3 (08:34→17:12)
[2023-09-19] MEDS: NOVOLOG FLEXPEN-MODERATE RESISTANCE 3 UNITS SC (08:34)
[2023-09-19] MEDS: NSS IV (08:49)
--- NOTE | 2023-09-19 09:02 | W.PN.UPDATE ---
Update Note
Progress Note Update
Pt seen and chart reviewed
With infection L index after trigger finger release done elsewhere
Difficult and not clear cut presentation
At minimum has cellulitis but cannot rule out flexor sheath infection and/or abscess
Rec:
-Iv antibx for 24 hours
-if no improvement will take to OR for exploration/possible I and D
Thanks
GGMD
[2023-09-19] MEDS: ROXICODONE 30 MG PO ×4 (09:55→23:38)
[2023-09-19] MEDS: NOVOLOG FLEXPEN-MODERATE RESISTANCE 1 UNITS SC (12:52)
[2023-09-19 12:57] LABS: Glucose - Point of Care 164 mg/dl (70-99)
--- NOTE | 2023-09-19 13:07 | PHA.VAN.FU ---
Vancomycin Assessment / Plan
- Assessment
Renal Function: Stable (0.5>0.5)
WBC's are: Trending Down (6.0>4.2)
In the past 24 hrs, patient has been: Afebrile
Concomitant Antimicrobials: Metronidazole
- Dosing Plan
Continue: Vancomycin 1000mg IV Q8hrs
- Monitoring Plan
No level(s) ordered at this time: Will order levels according to vancomycin dosing protocol
- Follow Up
Pharmacy will continue to follow.
Vancomycin Follow UP
- -
Patient Age: 27
Patient Sex: Female
Vancomycin Day #: 2
Indication: Skin And Soft Tissue (FLEXOR TENOSYNOVITIS/SEPSIS)
Requesting Provider: Lei MARIEE
Pertinent Antimicrobial Allergies:
Allergies
Penicillins Allergy (Verified 09/18/23 14:27)
Shortness of Breath
Sulfa (Sulfonamide Antibiotics) Allergy (Verified 09/18/23 14:27)
Hives
amoxicillin [Amoxicillin] Allergy (Verified 09/18/23 14:27)
Shortness of Breath
cephalexin Allergy (Verified 09/18/23 14:27)
tongue swelling/but tolerated cefepime,ceftriaxone, etc.
sulfamethoxazole [From Bactrim] Allergy (Verified 09/18/23 14:27)
Hives
trimethoprim [From Bactrim] Allergy (Verified 09/18/23 14:27)
Hives
Height / Weight:
Height 5 ft 5 in
Actual Weight 99.45 kg
IBW in k
Adjusted BW in k
Pertinent Past Medical History: IDDM, CHRONIC PAIN SYNDROME, BMI=36.5
- Vital Signs / Lab Results
Temp Pulse Resp BP Pulse Ox
98.1 F 98 16 149/87 100
09/19/23 07:45 09/19/23 08:36 09/19/23 08:36 09/19/23 07:45 09/19/23 08:36
Lab Results - Hematology
09/18/23 09/19/23
16:08 07:19
WBC 6.0 4.2 L
Lab Results - Chemistry
09/18/23 09/19/23
16:08 07:19
BUN 6 L 3 L
Creatinine 0.5 L 0.5 L
Estimated Creat Clear > 125 > 125
09/18/23 09/19/23
16:08 07:19
Lactic Acid 2.2 H 0.9
--- NOTE | 2023-09-19 13:39 | CM ---
Addendum entered by Jacque Lipscomb 09/20/23 14:20:
SW made attempt to see pt on 09/19, and she was off the floor in OR for I&D.
Original Note:
SW made attempts to see pt. Pt was so lethargic she could not appropriately participate.
Pt did verbalize clearly that she needed help with something, but her speech was very garbled, impossible to understand, and then she fell asleep.
SW made attempts at getting a clear response to her needs, but unsuccessful, and pt asked that SW return later.
[2023-09-19 15:00] VITALS: BP 159/100
[2023-09-19] MEDS: NOVOLOG FLEXPEN-MODERATE RESISTANCE 5 UNITS SC (17:12)
[2023-09-19 17:19] LABS: Glucose - Point of Care 268 mg/dl (70-99)
[2023-09-19] MEDS: SENOKOT-S 2 TABLET PO (19:34)
[2023-09-19 19:41] LABS: Glucose - Point of Care 312 mg/dl (70-99)
--- NOTE | 2023-09-19 19:51 | PTCARENOTE ---
Assumed care of patient from previous RN -- patient just received scheduled dose of Ativan by previous RN. Patient is now requesting her PRN oxy for pain of 8/10 to left index finger. Provided patient with PRN dose of oxy -- see AUG. Patient is due
for 40units Lantus at 2000pm - blood sugar checked for 312. Patient is requesting to be covered with NovoLog for this reading, in addition to the scheduled Lantus this evening. She is also requesting to have her IVFs restarted per her conversation
with Dr. Rock this afternoon as she will be NPO past midnight tonight for OR tomorrow. Requests discussed with JAYLENE Sanders -- awaiting further instruction at this time.
Patient states to this RN during medication administration that she has not voided since 11pm last night. Explained to patient that we would perform a bladder scan to evaluate and patient is refusing at this time. Encouraged patient to attempt to
void in bathroom following her meal, and explained the risks of not evaluating the bladder assuming she is not able to void. Patient states she will think about it. Call [facility] is within reach. Will monitor.
[2023-09-19 20:00] VITALS: BP 158/109
[2023-09-19] MEDS: NOVOLOG FLEXPEN 7 UNITS SC (20:19)
[2023-09-19] MEDS: MELATONIN 9 MG PO (21:27)
[2023-09-19 21:49] LABS: Glucose - Point of Care 226 mg/dl (70-99)
--- NOTE | 2023-09-19 22:31 | PTCARENOTE ---
Patient insistent on having blood sugar rechecked after receiving her one time dose 7 units NovoLog and scheduled 40 units Lantus, stating 'I don't feel good, my blood sugar is in the 500s. I know my body, and I feel horrible. Check it now.' Blood
sugar checked at 226, which is lower than 2040pm check prior to insulin administration. Patient is starting to get agitated and yelling out of her room. She is expressing interest in stopping the vancomycin and only taking pain medication, also
stating 'I would rather be homeless and cut this finger off than be here. Nothing and no one is helping me here.' Patient stated she was able to void in bathroom following bladder scan of 662mls, rescanned for 0mls at this time. Call [facility] is within
reach, will monitor.
--- NOTE | 2023-09-19 22:39 | PTCARENOTE ---
Patient is refusing to rate her pain following her dose of PRN Dilaudid. She is requesting to speak with ECONOMICS FACULTY MEMBER on tonight to ask to have her pain medication given early. Will relay this to ECONOMICS FACULTY MEMBER contract associate to discuss. Will monitor.
--- NOTE | 2023-09-19 23:40 | PTCARENOTE ---
Patient stated that she was concerned about her blood sugars, last checked at 2148pm for 226 after insisting it be checked as she thought she was 'too high.' Patient refused midnight check now that she is NPO for OR tomorrow. Will continue to
monitor.
[2023-09-19 23:50] VITALS: BP 144/86
[2023-09-20] VITALS (13 sets, daily range): BP systolic 116–159; BP diastolic 53–105
[2023-09-20] MEDS: DILAUDID 2 MG IV ×7 (00:31→21:41)
--- NOTE | 2023-09-20 03:00 | PTCARENOTE ---
Patient refused 3am vital signs.
[2023-09-20] MEDS: ATIVAN 1 MG PO ×3 (04:22→21:25)
[2023-09-20] MEDS: FLAGYL 500 MG 100 IV ×3 (04:24→21:32)
--- NOTE | 2023-09-20 04:43 | PTCARENOTE ---
Patient with occasional HR in 140s throughout shift, appears to correspond to times when patient is upset/crying, yelling and agitated. HR has been 90-100s at baseline this shift. Will monitor.
[2023-09-20] MEDS: ROXICODONE 30 MG PO ×3 (05:42→18:20)
[2023-09-20] MEDS: VANCOCIN 200 IV ×2 (05:42→15:01)
[2023-09-20 07:42] LABS: Hematocrit 33.1 % (37.0-47.0); Hemoglobin 11.4 g/dL (12.0-16.0); Mean Corp Hgb Conc. 34.4 g/dL (33.0-37.0); Mean Corpuscular Volume 75.6 fL (81.0-99.0); Mean Platelet Volume 9.1 fL (7.4-10.4); Platelet Count 264 10^3/uL (130-400); Red Blood Cell Count 4.38 10^6/uL (4.20-5.40); White Blood Cell Count 7.3 10^3/uL (4.8-10.8)
--- NOTE | 2023-09-20 07:42 | W.PN.HOSP.TC ---
Today's Communication/Plan
-
Continue IV antibiotics
Orthopedic surgery plans for I&D in the OR today
Assessment / Plan
Assessment / Plan
HPI: 27-year-old female with a past medical history of morbid obesity, type 2 diabetes, anxiety, factor V Leyden, PE/DVT on Coumadin, May-Thurner syndrome, and chronic constipation presents with worsening redness, pain of her left second finger.
Patient states that she underwent a left trigger finger release in the hospital at [place] recently, that got infected. Despite finishing a course of clindamycin and Levaquin 4 days ago, her left second digit has become more erythematous, swollen,
and is not able to bend. She reports fevers at night. She has many drug allergies.
#Cellulitis of left second finger with concern for flexor tenosynovitis
#History of recent left trigger finger release at [facility] in [place]
No leukocytosis or left shift, no documented fever upon admission
Appreciate orthopedic surgery input, for OR today
Continue IV vanc/flagyl
Patient complains of itching from antibiotics - added oral benadry to be given 1 hour prior to antibiotics (which she has not taken)
Right IJ placed 09/17
Records requested from [facility] - patient refused to sign consent for records
#Opioid Use Disorder
Patient has documented history of signing out of facilities AMA when opioids and IV benadryl are not provided
She requests combination IV Benadryl and opioids which is known combination of abuse
Would make every effort to avoid further IV Benadryl unless related to obtaining contrast (known allergy)
Continue oxycodone 30 mg every 4 hours, Dilaudid 2 mg IV every 3 hours�[employer] will not let you increase the dose
Ordered Narcan 0.4 mg IV as needed
#Anxiety / Depression
�Continue Wellbutrin, gabapentin, Ativan, melatonin
#LLE DVT
#Factor V Leiden Deficiency
#May-Thurner Syndrome
Hold Coumadin/plavix for OR today
#DM-II with Hyperglycemia
Continue home Lantus 40 units twice a day, started NovoLog 15 units AC 3 times daily
#Opioid-induced constipation
Started on MiraLAX twice a day, senna S twice a day
#Benign Hypertension
Continue clonidine 0.1 mg 3 times daily
#Hyperlipidemia
Continue statin
�
#Obesity due to excess calories and insulin resistance
Affects all aspects of care
Encourage healthy diet and increased activity with goal of weight loss
DVT prophylaxis�SCDs due to OR
Full code
Physical Exam
General: Morbidly obese, no acute distress
HEENT: Normocephalic, Atraumatic, EOMI, MMM
Respiratory: Clear to Auscultation bilaterally
Cardiac: Normal S1/S2, Regular Rate and Rhythm
GI: Soft, Nontender, Nondistended, Normal Bowel Sounds
Extremities: No Clubbing, Cyanosis, or Edema
Musculoskeletal:
Left second index finger in flexion, with diffuse erythema, and tenderness
Unable to extend finger
Neuro: Nonfocal/Grossly Intact
Psych: Intermittently agitated and argumentative
Anticipated Discharge: 24 - 48 hours
Subjective/Interval History
-
Date of Service: September 20, 2023
Patient continues to complain of severe pain in her left second finger, despite getting Dilaudid 2 mg IV q3Hprn and oxycodone 30 mg p.o Q4Hprn.
She denies constipation. No fever, no vomiting. No chest pain, no shortness of breath.
Objective Data
-
Labs:
Laboratory Results
09/20/23
07:37
WBC Pending
Hgb Pending
Hct Pending
Plt Count Pending
PT Pending
INR Pending
Sodium Pending
Potassium Pending
Chloride Pending
Carbon Dioxide Pending
BUN Pending
Creatinine Pending
Glucose Pending
Calcium Pending
Vital Signs:
Vital Signs
Temp Pulse Resp BP Pulse Ox
99.1 F 114 17 144/86 98
09/19/23 23:50 09/19/23 23:50 09/19/23 23:50 09/19/23 23:50 09/19/23 23:50
I&O
09/19/23 09/20/23 09/21/23
06:59 06:59 06:59
Intake Total 1413 / 1413 2860 / 2860
Balance 1413 / 1413 2860 / 2860
[2023-09-20] MEDS: FLUSH (NSS) 2 FLUSH IV ×2 (07:50→16:08)
[2023-09-20 07:55] LABS: INR 1.47; PT 17.6 Sec (11.4-14.6)
[2023-09-20] MEDS: CATAPRES 0.100000000000000006 MG PO ×3 (08:03→21:32)
[2023-09-20] MEDS: NEURONTIN 900 MG PO ×2 (08:04→15:53)
[2023-09-20] MEDS: FLEXERIL 10 MG PO ×2 (08:04→16:06)
[2023-09-20 08:12] LABS: Glucose - Point of Care 222 mg/dl (70-99)
[2023-09-20 08:12] LABS: Blood Urea Nitrogen 7 mg/dl (7-17); Calcium 9.6 mg/dl (8.4-10.2); Carbon Dioxide 28 mmol/L (22-30); Chloride 102 mmol/L (98-107); Estimated Creatinine Clearance > 125 ml/min; Glucose 201 mg/dl (70-99); Potassium 3.8 mmol/L (3.5-5.1); Sodium 135 mmol/L (135-145); eGFR > 60.00
[2023-09-20] MEDS: NOVOLOG FLEXPEN SC ×2 (08:18→08:54)
[2023-09-20] MEDS: NOVOLOG FLEXPEN-MODERATE RESISTANCE SC ×2 (08:42→14:50)
[2023-09-20] MEDS: LANTUS 0.400000000000000022 UNITS SC (08:56)
[2023-09-20] MEDS: NSS 1000 IV ×2 (10:14→20:03)
[2023-09-20] MEDS: FEOSOL PO (11:33)
[2023-09-20] MEDS: MIRALAX PO ×2 (11:34→21:26)
[2023-09-20] MEDS: SENOKOT-S PO (11:34)
[2023-09-20 11:52] LABS: Glucose - Point of Care 126 mg/dl (70-99)
--- NOTE | 2023-09-20 12:01 | PHA.VAN.FU ---
Vancomycin Assessment / Plan
- Assessment
Renal Function: SCR Increasing (0.5>0.6)
WBC's are: Trending Up (4.2>7.3)
In the past 24 hrs, patient has been: Afebrile
Concomitant Antimicrobials: Metronidazole
- Dosing Plan
Continue: Vancomycin 1000mg IV Q8hrs
- Monitoring Plan
Peak Level: Ordered for 09/21/23 at 00:30
Trough Level: Ordered for 09/21/23 at 05:30
- Follow Up
Pharmacy will continue to follow.
Vancomycin Follow UP
- -
Patient Age: 27
Patient Sex: Female
Vancomycin Day #: 3
Indication: Skin And Soft Tissue (FLEXOR TENOSYNOVITIS/SEPSIS)
Requesting Provider: Lei MARIEE
Pertinent Antimicrobial Allergies:
Allergies
Penicillins Allergy (Verified 09/18/23 14:27)
Shortness of Breath
Sulfa (Sulfonamide Antibiotics) Allergy (Verified 09/18/23 14:27)
Hives
amoxicillin [Amoxicillin] Allergy (Verified 09/18/23 14:27)
Shortness of Breath
cephalexin Allergy (Verified 09/18/23 14:27)
tongue swelling/but tolerated cefepime,ceftriaxone, etc.
sulfamethoxazole [From Bactrim] Allergy (Verified 09/18/23 14:27)
Hives
trimethoprim [From Bactrim] Allergy (Verified 09/18/23 14:27)
Hives
Height / Weight:
Height 5 ft 5 in
Actual Weight 99.45 kg
IBW in k
Adjusted BW in k
Pertinent Past Medical History: IDDM, CHRONIC PAIN SYNDROME, BMI=36.5
- Vital Signs / Lab Results
Temp Pulse Resp BP Pulse Ox
97.3 F 91 15 144/76 94
09/20/23 11:46 09/20/23 11:47 09/20/23 11:47 09/20/23 11:46 09/20/23 11:47
Lab Results - Hematology
09/18/23 09/19/23 09/20/23
16:08 07:19 07:37
WBC 6.0 4.2 L 7.3
Lab Results - Chemistry
09/18/23 09/19/23 09/20/23
16:08 07:19 07:37
BUN 6 L 3 L 7
Creatinine 0.5 L 0.5 L 0.6
Estimated Creat Clear > 125 > 125 > 125
09/18/23 09/19/23
16:08 07:19
Lactic Acid 2.2 H 0.9
Microbiology Results
09/18/23 16:08 Blood Culture - Preliminary
Blood/Venous No Growth in 24 hours- Final report to follow
[2023-09-20] MEDS: NOVOLOG FLEXPEN 15 UNITS SC ×2 (14:50→18:10)
[2023-09-20] MEDS: WELLBUTRIN XL (24 hour extended release) 150 MG PO (15:00)
[2023-09-20] MEDS: ZOFRAN 4 MG IV (16:06)
[2023-09-20 17:32] LABS: Glucose - Point of Care 335 mg/dl (70-99)
[2023-09-20] MEDS: NOVOLOG FLEXPEN-MODERATE RESISTANCE 7 UNITS SC (18:10)
[2023-09-20] MEDS: TYLENOL 650 MG PO (18:19)
[2023-09-20] MEDS: COUMADIN 5 MG PO (18:24)
[2023-09-20] MEDS: FLUSH (NSS) 1 FLUSH IV (18:48)
--- NOTE | 2023-09-20 20:25 | PTCARENOTE ---
@2020,TT JAYLENE Sanders to dylony pt's pain medication; Dilaudid and Roxicodone,for moderate and severe pain.Pt is getting Dilaudid and then getting Roxicodone 5mg po prn 20minutes later .
--- NOTE | 2023-09-20 20:37 | W.PN.UPDATE ---
Update Note
Progress Note Update
late note
09/18/222199
RN called MEDICAL VOUCHER CLERK to see patient as patient requested to see MEDICAL VOUCHER CLERK to make medication changes. Patient seen and evaluated. Patient sitting at the bed comfortably. She states she was told by her personal MEDICAL VOUCHER CLERK to reach the hospital MEDICAL VOUCHER CLERK for pain management and
changes to medications. Lists of pain medications were explained and the consequences of too much narcotics and advised of no more changes to pain medications. Patient got upset and told MEDICAL VOUCHER CLERK to leave the room as she will complain to her personal MEDICAL VOUCHER CLERK.
No changes made to the medications regimen at present. No apparent distress noted.
[2023-09-20] MEDS: FEOSOL 325 MG PO (21:25)
[2023-09-20] MEDS: SENOKOT-S 2 TABLET PO (21:26)
[2023-09-20] MEDS: MELATONIN 9 MG PO (21:27)
[2023-09-20 22:12] LABS: Glucose - Point of Care 339 mg/dl (70-99)
--- NOTE | 2023-09-20 22:55 | PTCARENOTE ---
Pt agitated about her pain medication and demanded to speak to the research dairy farm supervisor.Intermodal Owner Operator Truck Driver corrina did speak to pt on phone.Intermodal Owner Operator Truck Driver Corrina did speak to this RN after that conversation and medication changed discussed with her. Pt was instructed and is
aware that time is needed for medication, Dilaudid 2mg IV, to work before asking for Roxicodone. Pt is now in agreement.
[2023-09-21] MEDS: VANCOCIN 200 IV ×4 (00:32→22:35)
[2023-09-21] MEDS: LANTUS 0.400000000000000022 UNITS SC ×3 (00:32→22:36)
[2023-09-21] MEDS: NEURONTIN 900 MG PO ×4 (00:35→23:43)
[2023-09-21] MEDS: DILAUDID 2 MG IV ×8 (00:43→23:49)
[2023-09-21] MEDS: FLUSH (NSS) 2 FLUSH IV ×2 (00:45→23:44)
[2023-09-21 03:00] VITALS: BP 131/78
[2023-09-21] MEDS: ROXICODONE 30 MG PO ×4 (03:10→22:31)
[2023-09-21] MEDS: ATIVAN PO (04:05)
[2023-09-21] MEDS: FLAGYL 500 MG 100 IV ×3 (04:05→20:45)
--- NOTE | 2023-09-21 04:15 | PTCARENOTE ---
@0405 ;Pt stated,'I want to refuse my Ativan now and I want to get my Dilaudid for pain. We're all good ,it was all a misunderstanding earlier'. @0411,Administered Dilaudid 2mg IV for #9 pain in left hand.
[2023-09-21 04:29] LABS: Hematocrit 30.3 % (37.0-47.0); Hemoglobin 10.1 g/dL (12.0-16.0); Mean Corp Hgb Conc. 33.3 g/dL (33.0-37.0); Mean Corpuscular Hgb 25.6 pg (27.0-31.0); Mean Corpuscular Volume 76.7 fL (81.0-99.0); Mean Platelet Volume 9.3 fL (7.4-10.4); Platelet Count 239 10^3/uL (130-400); Red Blood Cell Count 3.95 10^6/uL (4.20-5.40); White Blood Cell Count 6.8 10^3/uL (4.8-10.8)
[2023-09-21 04:33] LABS: INR 1.62
[2023-09-21 04:48] LABS: Blood Urea Nitrogen 11 mg/dl (7-17); Calcium 9.3 mg/dl (8.4-10.2); Carbon Dioxide 28 mmol/L (22-30); Chloride 100 mmol/L (98-107); Estimated Creatinine Clearance > 125 ml/min; Glucose 307 mg/dl (70-99); Potassium 3.9 mmol/L (3.5-5.1); Sodium 133 mmol/L (135-145); eGFR > 60.00
[2023-09-21 05:54] LABS: Vancomycin Peak 19.9 ug/ml (18-26)
--- NOTE | 2023-09-21 06:40 | W.PN.UPDATE ---
Update Note
Progress Note Update
Small amount of pus yesterday but mostly scar
Would treat with IV antibx for 24 more hours and then DC to home on PO Antibx
Have her F/U with me in about 7-10 days
thanks
SANIYA
[2023-09-21 07:30] VITALS: BP 160/94
[2023-09-21 07:56] LABS: Vancomycin Trough 13.4 ug/ml (5-20)
[2023-09-21] MEDS: WELLBUTRIN XL (24 hour extended release) 150 MG PO (08:06)
[2023-09-21] MEDS: SENOKOT-S 2 TABLET PO (08:06)
[2023-09-21] MEDS: PLAVIX 75 MG PO (08:06)
[2023-09-21] MEDS: CATAPRES 0.100000000000000006 MG PO ×3 (08:06→22:35)
[2023-09-21] MEDS: FEOSOL 325 MG PO ×2 (08:06→20:45)
[2023-09-21 08:07] LABS: Glucose - Point of Care 258 mg/dl (70-99)
[2023-09-21] MEDS: LANTUS SC ×2 (08:08→08:32)
[2023-09-21] MEDS: NOVOLOG FLEXPEN-MODERATE RESISTANCE SC ×2 (08:09→08:31)
[2023-09-21] MEDS: NOVOLOG FLEXPEN SC ×3 (08:09→17:24)
[2023-09-21] MEDS: MIRALAX PO ×2 (08:11→20:46)
[2023-09-21] MEDS: FLEXERIL 10 MG PO ×2 (08:19→16:11)
--- NOTE | 2023-09-21 09:40 | PHA.VAN.FU ---
Vancomycin Assessment / Plan
- Assessment
Renal Function: Stable
WBC's are: WNL
In the past 24 hrs, patient has been: Afebrile
Concomitant Antimicrobials: metronidazole
- Assessment - Therapeutic Drug Monitoring
Extrapolated Cmax (mcg/mL): 27.6
Peak level was drawn: Appropriately (drawn ~2.5H after end of previous infusion; however, 2200 dose administered about 2.5H late)
Extrapolated Cmin (mcg/mL): 10.9
Trough Drawn: Appropriately
Levels were drawn: At steady state (levels drawn after 6th maintenance dose)
Calculated AUC (mcg*h/mL): 435
Calculated ke: 0.1333
Calculated half life (H): 5.2
Calculated Vd (L): 52 (~0.5 L/kg)
Calculated Vanc CL (ml/min): 115
- Dosing Plan
Continue: Vanc 1000mg Q8H
- Monitoring Plan
Level(s) appropriate: Recheck trough at minimum of weekly intervals, Repeat sooner for changes in renal function or clinical status
Next Level Due (Date): ~09/27
- Follow Up
Pharmacy will continue to follow.
Vancomycin Follow UP
- -
Patient Age: 27
Patient Sex: Female
Vancomycin Day #: 4
Indication: Skin And Soft Tissue
Requesting Provider: Lei MARIEE
Pertinent Antimicrobial Allergies:
Penicillins - Shortness of Breath
Sulfa (Sulfonamide Antibiotics) - Hives
amoxicillin - Shortness of Breath
cephalexin - tongue swelling/but tolerated cefepime,ceftriaxone, etc.
Height / Weight:
Height 5 ft 5 in
Actual Weight 99.45 kg
IBW in k
Adjusted BW in k
Pertinent Past Medical History: BMI ~36.5, DM, MARQUIS
- Vital Signs / Lab Results
Temp Pulse Resp BP Pulse Ox
98.4 F 101 16 160/94 100
09/21/23 07:30 09/21/23 08:06 09/21/23 07:30 09/21/23 08:06 09/21/23 07:30
Lab Results - Hematology
09/18/23 09/19/23 09/20/23
16:08 07:19 07:37
WBC 6.0 4.2 L 7.3
09/21/23
04:04
WBC 6.8
Lab Results - Chemistry
09/18/23 09/19/23 09/20/23
16:08 07:19 07:37
BUN 6 L 3 L 7
Creatinine 0.5 L 0.5 L 0.6
Estimated Creat Clear > 125 > 125 > 125
09/21/23
04:04
BUN 11
Creatinine 0.6
Estimated Creat Clear > 125
09/18/23 09/19/23
16:08 07:19
Lactic Acid 2.2 H 0.9
Microbiology Results
09/18/23 16:08 Blood Culture - Preliminary
Blood/Venous No Growth in 48 hours- Final report to follow
09/20/23 11:30 Gram Stain - Preliminary
Finger - Left
Therapeutic Drug Monitoring
Vancomycin Peak 19.9 ug/ml (18-26) 09/21/23 04:00
Vancomycin Trough Cancelled 09/21/23 08:30
--- NOTE | 2023-09-21 10:35 | PTCARENOTE ---
pt refused insulin this AM because her order diet restricted food items. This nurse educated pt on importance of insulin.
[2023-09-21] MEDS: POLYSPORIN OINTMENT 1 APPLIC TOPICAL ×3 (10:46→20:45)
[2023-09-21] MEDS: ATIVAN 1 MG PO ×2 (11:13→20:45)
[2023-09-21] MEDS: NOVOLOG FLEXPEN-MODERATE RESISTANCE 7 UNITS SC (11:17)
[2023-09-21] MEDS: NOVOLOG FLEXPEN 15 UNITS SC ×2 (11:17→18:42)
[2023-09-21 11:18] LABS: Glucose - Point of Care 301 mg/dl (70-99)
--- NOTE | 2023-09-21 11:30 | W.PN.HOSP.TC ---
Today's Communication/Plan
-
see A/P
Assessment / Plan
Assessment / Plan
HPI: 27-year-old female with past medical history of morbid obesity, type 2 diabetes, anxiety, factor V Leyden, PE/DVT on Coumadin, May-Thurner syndrome, and chronic constipation presented with worsening redness, pain of her left second finger.
Patient states that she underwent a left trigger finger release in the hospital at [place] recently, that got infected. 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
and was unable to bend. She reported fevers at night. She has many drug allergies.
A/P:
# Cellulitis of left second finger with concern for flexor tenosynovitis
# History of recent left trigger finger release at [facility] in [place]
No leukocytosis or left shift, no documented fever upon admission
s/p Incision and drainage left index flexor sheath infection with debridement of significant scarring 09/19
Appreciate orthopedic surgery
Follow wound Cx , so far no growth
Continue IV vanc/Flagyl (started prior to OR)
Patient complains of itching from antibiotics- cont with added oral Benadryl
Right IJ placed 09/17
Records requested from [facility] - patient refused to sign consent for records
Consult ID
# Opioid Use Disorder
Patient has documented history of signing out of facilities AMA when opioids and IV Benadryl are not provided
Would make every effort to avoid further IV Benadryl unless related to obtaining contrast (known allergy)
Continue oxycodone 30 mg every 4 hours, Dilaudid 2 mg IV every 3 hours� [employer] will not let you increase the dose
Ordered Narcan 0.4 mg IV as needed
# Anxiety / Depression
Continue Wellbutrin, gabapentin, Ativan, melatonin
# LLE DVT
# Factor V Leiden Deficiency
# May-Thurner Syndrome
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
Add heparin drip for bridging
Follow daily INR
# DM-II with Hyperglycemia
Continue home Lantus 40 units twice a day, started NovoLog 15 units AC 3 times daily
# Opioid-induced constipation
Started on MiraLAX twice a day, senna S twice a day
# Benign Hypertension
Continue clonidine 0.1 mg 3 times daily
# Hyperlipidemia
Continue statin
�
# Obesity due to excess calories and insulin resistance
Affects all aspects of care
Encourage healthy diet and increased activity with goal of weight loss
DVT prophylaxis� heparin drip bridge back to Coumadin
Full code
DW RN
total time spent 51 min
Anticipated Discharge: > 48 hours
Subjective/Interval History
-
Date of Service: September 21, 2023
Objective Data
-
Labs:
Laboratory Results
09/21/23
04:04
WBC 6.8
Hgb 10.1 L
Hct 30.3 L
Plt Count 239
PT 19.0 H
INR 1.62
Sodium 133 L
Potassium 3.9
Chloride 100
Carbon Dioxide 28
BUN 11
Creatinine 0.6
Glucose 307 H
Calcium 9.3
Vital Signs:
Vital Signs
Temp Pulse Resp BP Pulse Ox
36.9 C 101 16 160/94 100
09/21/23 07:30 09/21/23 08:06 09/21/23 07:30 09/21/23 08:06 09/21/23 07:30
I&O
09/20/23 09/21/23 09/22/23
06:59 06:59 06:59
Intake Total 2860 / 2860 3570 / 3570
Balance 2860 / 2860 3570 / 3570
Review of Systems
-
Constitutional: Reports Other (pain)
Physical Exam
-
General: Well Developed, Well Nourished, No Apparent Distress, Comfortable and Obese
HEENT: Normocephalic and Atraumatic
Respiratory: Clear to Auscultation; Negative Non Labored Respirations
Cardiac: Regular Rhythm and S1/S2
GI: Soft
Genito-urinary: No Costovertebral Tender
Skin: Other (L hand in wound dressing )
Neuro: Awake
Psych: Calm and Intact Judgement/Insight
Data Reviewed
-
Labs: Labs Reviewed by me
[2023-09-21 12:03] VITALS: BP 152/87
[2023-09-21 12:24] LABS: Hematocrit 29.1 % (37.0-47.0); Mean Corp Hgb Conc. 34.4 g/dL (33.0-37.0); Mean Corpuscular Hgb 26.2 pg (27.0-31.0); Mean Corpuscular Volume 76.2 fL (81.0-99.0); Mean Platelet Volume 9.2 fL (7.4-10.4); Platelet Count 233 10^3/uL (130-400); Red Blood Cell Count 3.82 10^6/uL (4.20-5.40); Red Cell Dist. Width 14.3 % (11.5-14.5); White Blood Cell Count 5.9 10^3/uL (4.8-10.8)
[2023-09-21 12:39] LABS: APTT 35.6 Sec (23.4-35.0)
[2023-09-21 13:02] LABS: Glucose - Point of Care 236 mg/dl (70-99)
[2023-09-21] MEDS: HEPARIN 25000 UNITS/250 ML IV (13:19)
[2023-09-21] MEDS: NSS IV (13:38)
--- NOTE | 2023-09-21 15:58 | CON.ID ---
Consultation
-
Date/Time Consultation Requested: 09/21/2023 1135
Date/Time Consultation Performed: 09/21/2023 1600
Requesting Provider: Dr. Rivera
Performing Provider: Dr. Eng
Reason for Consultation: Left hand infection
Chief Complaint / Past History
History of Present Illness
Helen Holden is a 27-year-old female being evaluated at the request of Dr. Rivera in regards to left hand infection. History is obtained from chart review, along with patient interview.
The patient has a very complex past medical history that includes factor V Leiden mutation, PE and DM, and reports that in the first several weeks of August she underwent surgery for a left trigger finger at the [place] [facility],
under the care of Dr. Taveras. Approximately 2 weeks ago she noted some swelling of her second and third fingers and [facility] clindamycin. Approximate 3 days later in the fingers were still swollen, and at this
point in time she noted some erythema extending up the forearm. She went back to the urgent care and Levaquin was added. She thereafter called her surgeon, but it was the weekend so she was advised to go to the nearest emergency room for further
care. Workup in the ER did not reveal leukocytosis, but she was evaluated by Orthopedics, and ultimately taken to the OR yesterday for exploration, with the findings of intraoperative purulence. Infectious Diseases is now asked to manage further
antimicrobial therapy.
At this point in time she notes some ongoing tenderness of her forearm, and reports some numbness in her fingers. She denies any fevers or chills.
Past History
Additional Past Medical History:
May-Thurner syndrome
DM
Hx pyelonephritis
Nephrolithiasis
Factor V Leiden mutation, antiphospholipid syndrome
PE/Recurrent DVT s/p IVC filter, hx thrombectomies, stents x 7
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
Prior history of mycobacterial foot infection requiring prolonged intravenous antibiotic therapy.
Chronic Sinusitis
Cholecystectomy
Hepartoma s/p partial hepatectomy
Appendectomy
left retinal detachment repair (10/14/22)
IUD
myringotomy
Achilles tendinitis
toe osteo
hx septoplasty
left sinus polyp removal, bilateral eustachian tube dilation (11/20/22)
Allergy History:
amoxicillin [Amoxicillin] Allergy (Verified 09/18/23 14:27)
Shortness of Breath
cephalexin Allergy (Verified 09/18/23 14:27)
tongue swelling/but tolerated cefepime,ceftriaxone, etc.
haloperidol [From Haldol] Allergy (Verified 09/18/23 14:27)
Anaphylaxis
Iodinated Contrast Media Allergy (Verified 09/18/23 14:27)
Itching
ketorolac tromethamine [From Toradol] Allergy (Verified 03/13/23 13:59)
Anaphylaxis
linezolid [From Zyvox] Allergy (Verified 09/18/23 14:27)
Shortness of Breath
nystatin Allergy (Verified 09/18/23 14:27)
Rash
Penicillins Allergy (Verified 09/18/23 14:27)
Shortness of Breath
Sulfa (Sulfonamide Antibiotics) Allergy (Verified 09/18/23 14:27)
Hives
tramadol Allergy (Verified 09/18/23 14:27)
Anaphylaxis
Current Antibiotics:
Vancomycin
Metronidazole
Social History
Tobacco: Non-Smoker
Alcohol: None
Drug: None
Personal: Single
Review of Systems
Vital Signs
Temp Pulse Resp BP Pulse Ox
98.9 F 99 16 152/87 97
09/21/23 12:03 09/21/23 12:03 09/21/23 12:03 09/21/23 12:03 09/21/23 12:03
Physical Exam
Physical Exam
Constitutional: No Acute Distress, Comfortable and Non-toxic
Head: Normocephalic
Eyes: Pupils Equal, Pupils Round, No Conjunctival Hemorrhage and Sclera Anicteric; Negative Erythema
Oral: No Thrush and No Ulcers
Lymph Nodes: Negative Lymphadenopathy
Cardiovascular: Regular Rate and S1/S2; Negative S3/S4 or Murmur
Pulmonary: Clear and Non Labored; Negative Wheezes, Rales or Rhonchi
Gastrointestinal: Soft, Non Tender, Non Distended and Normal Bowel Sounds
Extremities: Edema (left hand and forearm.); Negative Cyanosis or Erythema
Skin: Warm and Dry; Negative Rash or Jaundice
Wound: Other (left hand dressed in radha wrap)
Neurological: Awake, Alert and Oriented
Psychological: Calm
.
Lab / Diagnostic Study Results
09/21/23 12:16
09/21/23 04:04
Abs Immat Gran (auto) 0.0 10^3/uL (0-0.05) 09/18/23 16:08
Absolute Neuts (auto) 4.0 10^3/uL (1.4-6.5) 09/18/23 16:08
Absolute Lymphs (auto) 1.2 10^3/uL (1.2-3.4) 09/18/23 16:08
Absolute Monos (auto) 0.4 10^3/uL (0.1-0.6) 09/18/23 16:08
Absolute Basos (auto) 0.0 10^3/uL (0-0.2) 09/18/23 16:08
Immature Gran % 0.3 % (0-0.5) 09/18/23 16:08
Neutrophils % 65.8 % (42.2-75.2) 09/18/23 16:08
Lymphocytes % 19.4 % (20.5-51.1) L 09/18/23 16:08
Monocytes % 6.0 % (1.7-9.3) 09/18/23 16:08
Eosinophils % 7.8 % (0-6) H 09/18/23 16:08
Basophils % 0.7 % (0-2) 09/18/23 16:08
PT 19.0 Sec (11.4-14.6) H 09/21/23 04:04
INR 1.62 09/21/23 04:04
Lactic Acid 0.9 mmol/L (0.7-2.0) 09/19/23 07:19
C-Reactive Protein 12.20 mg/L (0.0-10.00) H 09/18/23 16:08
Microbiology Results
Micro:
09/20/23 11:30 Anaerobic Culture - Preliminary
Finger - Left Culture pending. Anaerobic cultures are examined after 3
days incubation. Additional information to follow.
09/20/23 11:30 Wound Culture - Preliminary
Finger - Left No growth
Gram Stain - Preliminary
09/18/23 16:08 Blood Culture - Preliminary
Blood/Venous No Growth in 48 hours- Final report to follow
Imaging:
09/20/2023 X-ray left hand: No acute fracture or dislocation. Joint spaces are well-maintained. Soft tissues are grossly unremarkable. No convincing radiographic evidence for active osteomyelitis.
Assessment / Plan
Left hand cellulitis
Suspected tenosynovitis
Recent trigger finger surgery
Multiple drug allergies including PCN, Keflex, sulfa
May-Thurner syndrome
DM
Nephrolithiasis
Factor V Leiden mutation, antiphospholipid syndrome
PE/Recurrent DVT s/p IVC filter, hx thrombectomies, stents x 7
Recommendations:
Continue with vancomycin and metronidazole while cultures are pending.
Will add GNR coverage with cefepime (patient is tolerated in the past.) While final cultures are pending.
Await further culture data to guide antimicrobial therapy.
Monitor white count temperature curve.
Local care to the hand wound.
[2023-09-21 16:00] VITALS: BP 123/67
[2023-09-21 16:47] LABS: Glucose - Point of Care 296 mg/dl (70-99)
[2023-09-21] MEDS: COUMADIN 5 MG PO (17:24)
[2023-09-21] MEDS: NOVOLOG FLEXPEN-MODERATE RESISTANCE 5 UNITS SC (17:25)
[2023-09-21] MEDS: MAXIPIME 2000 MG IV (17:56)
[2023-09-21] MEDS: STERILE WATER FOR INJECTION 10 ML IV (17:56)
[2023-09-21 19:57] LABS: APTT 130.2 Sec (23.4-35.0)
[2023-09-21] MEDS: SENOKOT-S PO (20:46)
[2023-09-21 21:32] LABS: Glucose - Point of Care 279 mg/dl (70-99)
[2023-09-21] MEDS: MELATONIN 9 MG PO (22:34)
[2023-09-21 23:00] VITALS: BP 140/68
[2023-09-21] MEDS: DESENEX/MITRAZOL/ZEASORB 1 APPLIC TOPICAL (23:43)
[2023-09-22 00:07] LABS: Glucose - Point of Care 387 mg/dl (70-99)
[2023-09-22] MEDS: NOVOLOG FLEXPEN 9 UNITS SC ×2 (00:20→03:23)
--- NOTE | 2023-09-22 00:20 | PTCARENOTE ---
Pt tearful in room. Pt stated, 'My sugar is high, I know my body'. Glucose rechecked, [id number]. FREIGHT CHECKER made aware, new order provided, 9 units novolog administered, see MAR. Will recheck glucose.
--- NOTE | 2023-09-22 00:30 | RR ---
Addendum entered by Heydi Golden RN 09/22/23 01:50:
2 L O2 placed during rapid response.
Original Note:
A Rapid Response was called on this patient, please see Rapid Response form.
Pt complained of pain throughout ERICK chest radiating to L shoulder. Pt grabbing L chest. Pt expressed discomfort when breathing, chest heaviness, and 'not feeling good'. Pt stated, 'I have already had 4 cardiac arrests, why not have a fifth'. Pt
mildly diaphoretic. Rapid response called, rapid response team at bedside. BUFFER AUTOMATIC at bedside, new orders provided. Pt informed BUFFER AUTOMATIC pain is in middle upper abd. Lab work obtained, ECG obtained. Pt refused new CXR order and new IV pepcid order. Pt
requested Dilaudid pain medication early, BUFFER AUTOMATIC made aware. groundwater monitoring technician ordered, pt refused and ripped telemetry leads off. PCT informed this RN pt raising voice and stated 'I want my fing pain medicine now' and 'don't fing touch me'. Pt
yelling out of room for more pain medicine and informed this RN that she will go to the ED to get it. BUFFER AUTOMATIC made aware.
--- NOTE | 2023-09-22 00:35 | W.PN.UPDATE ---
Update Note
Progress Note Update
RN OTOLARYNGOLOGY
Patient complained of chest heaviness, non radiating associated with SOB. Pain is located at the epigastric area. BP 144/110, hr 117, spo2 95-97 % on RA.
Patient was placed on 2 L of O2, EKG, CBC, BMP, troponin, and chest x-ray ordered. Patient was placed on telemetry.
---Patient refused chest x-ray.
---Patient refused to receive any medications to manage her symptoms and requested narcotics only. Patient stated 'I know my body '
[2023-09-22 00:39] VITALS: BP 144/110
[2023-09-22 01:25] LABS: % Basophils 0.8 % (0-2); % Eosinophils 7.9 % (0-6); % Immature Granulocytes 0.5 % (0-0.5); % Lymphocytes 22.8 % (20.5-51.1); % Monocytes 5.5 % (1.7-9.3); % Neutrophils 62.5 % (42.2-75.2); Absolute Basophils 0.1 10^3/uL (0-0.2); Absolute Eosinophils 0.5 10^3/uL (0-0.7); Absolute Lymphocytes 1.4 10^3/uL (1.2-3.4); Absolute Monocytes 0.3 10^3/uL (0.1-0.6); Absolute Neutrophils 3.9 10^3/uL (1.4-6.5); Hematocrit 31.9 % (37.0-47.0); Hemoglobin 10.7 g/dL (12.0-16.0); Mean Corp Hgb Conc. 33.5 g/dL (33.0-37.0); Mean Corpuscular Hgb 26.5 pg (27.0-31.0); Mean Platelet Volume 9.8 fL (7.4-10.4); Nucleated Red Blood Cells % 0 %; Platelet Count 257 10^3/uL (130-400); Red Blood Cell Count 4.04 10^6/uL (4.20-5.40); Red Cell Dist. Width 14.2 % (11.5-14.5); White Blood Cell Count 6.2 10^3/uL (4.8-10.8)
[2023-09-22 01:29] LABS: Blood Urea Nitrogen 10 mg/dl (7-17); Calcium 8.8 mg/dl (8.4-10.2); Carbon Dioxide 27 mmol/L (22-30); Chloride 98 mmol/L (98-107); Estimated Creatinine Clearance > 125 ml/min; Glucose 358 mg/dl (70-99); Potassium 3.7 mmol/L (3.5-5.1); Sodium 132 mmol/L (135-145); eGFR > 60.00
[2023-09-22 01:35] LABS: Troponin I < 0.012 ng/ml
[2023-09-22 02:20] LABS: APTT 142.7 Sec (23.4-35.0)
[2023-09-22] MEDS: FLEXERIL 10 MG PO ×4 (02:46→23:27)
[2023-09-22] MEDS: ATIVAN 1 MG PO ×3 (02:46→20:00)
[2023-09-22] MEDS: FLUSH (NSS) 2 FLUSH IV ×2 (02:47→05:07)
[2023-09-22] MEDS: DILAUDID 2 MG IV ×7 (02:49→21:06)
[2023-09-22 02:51] LABS: Glucose - Point of Care 366 mg/dl (70-99)
--- NOTE | 2023-09-22 03:00 | PTCARENOTE ---
Glucose rechecked, [id number]. SURFACE WATER TECHNICIAN made aware, new order provided, 9 units novolog administered. Will recheck glucose.
[2023-09-22] MEDS: ROXICODONE 30 MG PO ×5 (03:28→20:44)
--- NOTE | 2023-09-22 03:47 | PTCARENOTE ---
personnel monitor placed. Pt cooperative.
--- NOTE | 2023-09-22 03:50 | PTCARENOTE ---
surveillance monitor placed. Pt cooperative. Monitor reading NSR, strip placed in patient chart.
[2023-09-22] MEDS: HEPARIN 25000 UNITS/250 ML IV (04:50)
[2023-09-22] MEDS: FLAGYL 500 MG 100 IV ×3 (04:50→21:18)
[2023-09-22 05:44] LABS: Glucose - Point of Care 275 mg/dl (70-99)
[2023-09-22] MEDS: MAXIPIME 2000 MG IV ×2 (05:51→17:34)
[2023-09-22] MEDS: STERILE WATER FOR INJECTION 10 ML IV ×2 (05:51→17:34)
[2023-09-22] MEDS: ZOFRAN 4 MG IV (05:58)
--- NOTE | 2023-09-22 06:09 | PTCARENOTE ---
Pt call [facility] ringing for approximately 1 - 2 minutes. Pt yelling out, 'Nurse' repeatedly.
[2023-09-22] MEDS: VANCOCIN 200 IV ×3 (06:28→22:36)
[2023-09-22 07:30] VITALS: BP 130/63
[2023-09-22] MEDS: WELLBUTRIN XL (24 hour extended release) 150 MG PO (07:50)
[2023-09-22] MEDS: NEURONTIN 900 MG PO ×3 (07:50→23:27)
[2023-09-22] MEDS: PLAVIX 75 MG PO (07:51)
[2023-09-22] MEDS: SENOKOT-S 2 TABLET PO ×2 (07:51→21:19)
[2023-09-22] MEDS: FEOSOL 325 MG PO (07:51)
[2023-09-22] MEDS: CATAPRES 0.100000000000000006 MG PO ×3 (07:52→22:36)
[2023-09-22 08:33] LABS: Glucose - Point of Care 219 mg/dl (70-99)
[2023-09-22] MEDS: NOVOLOG FLEXPEN-MODERATE RESISTANCE 3 UNITS SC (08:55)
[2023-09-22] MEDS: NOVOLOG FLEXPEN 15 UNITS SC ×3 (08:56→17:31)
[2023-09-22] MEDS: LANTUS 0.400000000000000022 UNITS SC ×2 (08:56→22:35)
[2023-09-22] MEDS: MIRALAX 17 GRAMS PO (09:08)
[2023-09-22 10:08] LABS: Hematocrit 31.4 % (37.0-47.0); Hemoglobin 10.6 g/dL (12.0-16.0); Mean Corp Hgb Conc. 33.8 g/dL (33.0-37.0); Mean Corpuscular Hgb 26.3 pg (27.0-31.0); Mean Corpuscular Volume 77.9 fL (81.0-99.0); Mean Platelet Volume 9.2 fL (7.4-10.4); Platelet Count 236 10^3/uL (130-400); Red Blood Cell Count 4.03 10^6/uL (4.20-5.40); Red Cell Dist. Width 14.1 % (11.5-14.5); White Blood Cell Count 5.3 10^3/uL (4.8-10.8)
[2023-09-22 10:20] LABS: INR 1.58; PT 18.7 Sec (11.4-14.6)
[2023-09-22 10:22] LABS: APTT 90.2 Sec (23.4-35.0)
--- NOTE | 2023-09-22 10:31 | W.PN.HOSP.TC ---
Today's Communication/Plan
-
see A/P
Assessment / Plan
Assessment / Plan
HPI: 27-year-old female with past medical history of morbid obesity, type 2 diabetes, anxiety, factor V Leyden, PE/DVT on Coumadin, May-Thurner syndrome, and chronic constipation presented with worsening redness, pain of her left second finger.
Patient states that she underwent a left trigger finger release in the hospital at [place] recently, that got infected. 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
and was unable to bend. She reported fevers at night. She has many drug allergies.
A/P:
# Cellulitis of left second finger with concern for flexor tenosynovitis
# History of recent left trigger finger release at [facility] in [place]
No leukocytosis or left shift, no documented fever upon admission
s/p Incision and drainage left index flexor sheath infection with debridement of significant scarring 09/19
Appreciate orthopedic surgery
Follow wound Cx , so far no growth
Continue IV vanc/Flagyl (started prior to OR), added cefepime
Patient complains of itching from antibiotics- cont with added oral Benadryl
Right IJ placed 09/17
Records requested from [facility] - patient refused to sign consent for records
ID on board
# Opioid Use Disorder
Patient has documented history of signing out of facilities AMA when opioids and IV Benadryl are not provided
Would make every effort to avoid further IV Benadryl unless related to obtaining contrast (known allergy)
Continue oxycodone 30 mg every 4 hours, Dilaudid 2 mg IV every 3 hours� [employer] will not let you increase the dose
Ordered Narcan 0.4 mg IV as needed
# Anxiety / Depression
# poor insight
Continue Wellbutrin, gabapentin, Ativan, melatonin
# LLE DVT
# Factor V Leiden Deficiency
# May-Thurner Syndrome
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
Cont heparin drip for bridging
Follow daily INR
# DM-II with Hyperglycemia
Continue home Lantus 40 units twice a day, started NovoLog 15 units AC 3 times daily
cover with ISS (high resistance)
Pt refused diabetic diet
# Opioid-induced constipation
Started on MiraLAX twice a day, senna-S twice a day
Dulcolax ordered per pt request
hold PO iron
# Benign Hypertension
Continue clonidine 0.1 mg 3 times daily
# Hyperlipidemia
Continue statin
�
# Obesity due to excess calories and insulin resistance
Affects all aspects of care
Encourage healthy diet and increased activity with goal of weight loss
DVT prophylaxis� heparin drip bridge back to Coumadin
Full code
DW RN
total time spent 51 min
Anticipated Discharge: 24 - 48 hours
Subjective/Interval History
-
Date of Service: September 22, 2023
Objective Data
-
Labs:
Laboratory Results
09/22/23 09/22/23 09/22/23
01:01 01:59 09:58
WBC 6.2 5.3
Hgb 10.7 L 10.6 L
Hct 31.9 L 31.4 L
Plt Count 257 236
PT 18.7 H
INR 1.58
APTT 142.7 H 90.2 H
Sodium 132 L Pending
Potassium 3.7 Pending
Chloride 98 Pending
Carbon Dioxide 27 Pending
BUN 10 Pending
Creatinine 0.5 L Pending
Glucose 358 H Pending
Calcium 8.8 Pending
Vital Signs:
Vital Signs
Temp Pulse Resp BP Pulse Ox
36.9 C 102 16 130/63 98
09/22/23 07:30 09/22/23 07:30 09/22/23 07:30 09/22/23 07:30 09/22/23 07:30
I&O
09/21/23 09/22/23 09/23/23
06:59 06:59 06:59
Intake Total 3570 / 3570 800 / 800 880 / 880
Balance 3570 / 3570 800 / 800 880 / 880
Review of Systems
-
Neuro: Reports Other (numbness of L fingers)
Physical Exam
-
General: Well Developed, Well Nourished, No Apparent Distress, Comfortable and Obese
HEENT: Normocephalic and Atraumatic
Respiratory: Clear to Auscultation; Negative Non Labored Respirations
Cardiac: Regular Rhythm and S1/S2
GI: Soft and Nontender
Skin: Other (L hand in wound dressing )
Neuro: Awake and Alert
Psych: Calm; Negative Intact Judgement/Insight (this patient has NO insight of her conditions)
Data Reviewed
-
Labs: Labs Reviewed by me
[2023-09-22] MEDS: DULCOLAX 10 MG PO (11:22)
[2023-09-22] MEDS: POLYSPORIN OINTMENT 1 APPLIC TOPICAL ×2 (11:23→21:19)
[2023-09-22] MEDS: TYLENOL 650 MG PO ×2 (11:25→17:53)
[2023-09-22 11:30] VITALS: BP 119/67
[2023-09-22] MEDS: DESENEX/MITRAZOL/ZEASORB 1 APPLIC TOPICAL ×2 (11:30→21:20)
[2023-09-22 11:44] LABS: Blood Urea Nitrogen 6 mg/dl (7-17); Carbon Dioxide 30 mmol/L (22-30); Chloride 100 mmol/L (98-107); Estimated Creatinine Clearance > 125 ml/min; Glucose 197 mg/dl (70-99); Potassium 2.9 mmol/L (3.5-5.1); Sodium 135 mmol/L (135-145); eGFR > 60.00
[2023-09-22 11:55] LABS: Glucose - Point of Care 212 mg/dl (70-99)
[2023-09-22] MEDS: NOVOLOG FLEXPEN-HIGH RESISTANCE 4 UNITS SC ×2 (13:39→17:33)
--- NOTE | 2023-09-22 13:49 | PHA.VAN.FU ---
Vancomycin Assessment / Plan
- Assessment
Renal Function: Stable
WBC's are: WNL
In the past 24 hrs, patient has been: Afebrile
Concomitant Antimicrobials: cefepime, metronidazole
- Dosing Plan
Continue: Vanc 1000mg Q8H
- Monitoring Plan
Level(s) appropriate: Recheck trough at minimum of weekly intervals, Repeat sooner for changes in renal function or clinical status
Next Level Due (Date): ~09/27, may consider sooner
- Follow Up
Pharmacy will continue to follow.
Vancomycin Follow UP
- -
Patient Age: 27
Patient Sex: Female
Vancomycin Day #: 5
Indication: Skin And Soft Tissue
Requesting Provider: Lei MARIEE
Pertinent Antimicrobial Allergies:
Penicillins - Shortness of Breath
Sulfa (Sulfonamide Antibiotics) - Hives
amoxicillin - Shortness of Breath
cephalexin - tongue swelling/but tolerated cefepime,ceftriaxone, etc.
Height / Weight:
Height 5 ft 5 in
Actual Weight 99.45 kg
IBW in k
Adjusted BW in k
Pertinent Past Medical History: BMI ~36.5, DM, MARQUIS
- Vital Signs / Lab Results
Temp Pulse Resp BP Pulse Ox
98.8 F 104 16 119/67 98
09/22/23 11:30 09/22/23 11:30 09/22/23 11:30 09/22/23 11:30 09/22/23 11:30
Lab Results - Hematology
09/20/23 09/21/23 09/21/23
07:37 04:04 12:16
WBC 7.3 6.8 5.9
09/22/23 09/22/23
01:01 09:58
WBC 6.2 5.3
Lab Results - Chemistry
09/20/23 09/21/23 09/22/23
07:37 04:04 01:01
BUN 7 11 10
Creatinine 0.6 0.6 0.5 L
Estimated Creat Clear > 125 > 125 > 125
09/22/23
09:58
BUN 6 L
Creatinine 0.5 L
Estimated Creat Clear > 125
Microbiology Results
09/20/23 11:30 Wound Culture - Preliminary
Finger - Left No growth
Gram Stain - Preliminary
09/18/23 16:08 Blood Culture - Preliminary
Blood/Venous No Growth in 72 hours- Final report to follow
09/20/23 11:30 Anaerobic Culture - Preliminary
Finger - Left Culture pending. Anaerobic cultures are examined after 3
days incubation. Additional information to follow.
Therapeutic Drug Monitoring
Vancomycin Peak 19.9 ug/ml (18-26) 09/21/23 04:00
Vancomycin Trough Cancelled 09/21/23 08:30
--- NOTE | 2023-09-22 14:54 | CM ---
Spoke with patient to obtain information for assessment. Patient stated that she lives in a single home with 5 stories and 3 steps to enter, with her father, grandmother and sister.
She described herself as independent with her ADLs, personal care, dressing and bathing prior to the OR. 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
Patient has a prescription plan and uses [facility] in [place] for all of her medications.
Her PCP is, Dr. Fox.
Patient stated that she will be returning to her house in [place] where she stays with her mother as her parents are . Address is: [address] [place] [id number].
Patient stated that she wants VN services for wound care through however if they are unable to go to [place] she would like for [facility] VN.
Will confirm how far VN can go.
Plan: Case management will continue to follow and assist with discharge planning. Home with wound care, VN is indicated.
[2023-09-22 16:00] VITALS: BP 104/60
--- NOTE | 2023-09-22 16:08 | W.PN.ID1 ---
Date of Service
Date of Service: September 22, 2023
Today's Communication
Continue antibiotics.
Assessment / Plan
Left hand cellulitis
Suspected tenosynovitis
Recent trigger finger surgery
Multiple drug allergies; including PCN, Keflex, sulfa
May-Thurner syndrome
DM
Nephrolithiasis
Factor V Leiden mutation, antiphospholipid syndrome
PE/Recurrent DVT s/p IVC filter, hx thrombectomies, stents x 7
Recommendations:
Continue vancomycin, cefepime and metronidazole.
Await pending cultures.
Advised upper extremity elevation to minimize swelling.
Monitor white count temperature curve.
Local care to the hand wound.
����������������������������������������������������������
Chief Complaint
-: Other (Left hand infection)
Subjective / Review of Systems
Patient seen and examined. Notes ongoing swelling. Also notes some numbness in the thumb area. FISH GRADER called last night secondary to chest discomfort.
Vital Signs / Physical Exam
Vital Signs
Vital Signs
Temp Pulse Resp BP Pulse Ox
98.8 F 104 16 119/67 98
09/22/23 11:30 09/22/23 11:30 09/22/23 11:30 09/22/23 11:30 09/22/23 11:30
Physical Exam
Constitutional: No Acute Distress, Comfortable and Non-toxic
Eyes: Sclera Anicteric
Pulmonary: Non Labored
Extremities: Other (Left hand dressed in Peyman wrap. No periwound erythema, or erythema extending up the forearm.)
Skin: Negative Rash or Jaundice
Neurological: Awake and Alert
Psychological: Calm
Objective Data
Lab Data
Lab Results
09/22/23 09:58
09/22/23 09:58
PT 18.7 Sec (11.4-14.6) H 09/22/23 09:58
INR 1.58 09/22/23 09:58
APTT 90.2 Sec (23.4-35.0) H 09/22/23 09:58
Estimated Creat Clear > 125 ml/min 09/22/23 09:58
Lactic Acid 0.9 mmol/L (0.7-2.0) 09/19/23 07:19
C-Reactive Protein 12.20 mg/L (0.0-10.00) H 09/18/23 16:08
Most recent labs reviewed.
Micro Results:
09/20/23 11:30 Wound Culture - Preliminary
Finger - Left No growth
Gram Stain - Preliminary
09/18/23 16:08 Blood Culture - Preliminary
Blood/Venous No Growth in 72 hours- Final report to follow
09/20/23 11:30 Anaerobic Culture - Preliminary
Finger - Left Culture pending. Anaerobic cultures are examined after 3
days incubation. Additional information to follow.
Imaging:
09/20/2023 X-ray left hand: No acute fracture or dislocation. Joint spaces are well-maintained. Soft tissues are grossly unremarkable. No convincing radiographic evidence for active osteomyelitis.
[2023-09-22 16:46] LABS: Glucose - Point of Care 221 mg/dl (70-99)
[2023-09-22] MEDS: COUMADIN 5 MG PO (17:31)
[2023-09-22 20:05] VITALS: BP 135/73
[2023-09-22] MEDS: MIRALAX PO (21:19)
[2023-09-22 21:50] LABS: Glucose - Point of Care 289 mg/dl (70-99)
[2023-09-22] MEDS: MELATONIN 9 MG PO (22:36)
[2023-09-22 23:19] LABS: Glucose - Point of Care 328 mg/dl (70-99)
[2023-09-22] MEDS: NOVOLOG FLEXPEN 10 UNITS SC (23:27)
--- NOTE | 2023-09-22 23:30 | PTCARENOTE ---
Pt yelling out for this RN to recheck her sugar. BG = 328. Pt stated 'I knew it was high, I need 16 units of insulin now.' ELECTRONICS TECH made aware, new order provided. See MAR for administration. Will recheck BG.
[2023-09-22 23:39] VITALS: BP 141/86
[2023-09-23] MEDS: DILAUDID 2 MG IV ×8 (00:07→22:46)
[2023-09-23] MEDS: HEPARIN 25000 UNITS/250 ML IV ×2 (00:28→20:52)
[2023-09-23] MEDS: ROXICODONE 30 MG PO ×6 (00:50→21:16)
[2023-09-23] MEDS: TYLENOL 650 MG PO ×3 (00:51→23:35)
--- NOTE | 2023-09-23 02:00 | PTCARENOTE ---
Addendum entered by Melissa Martin RN 09/23/23 08:13:
Glucose rechecked at 0500. BG = 142. Will continue ongoing plan of care.
Addendum entered by Melissa Martin RN 09/23/23 08:12:
Verbal order via telephone for 10 units novolog d/t downtime.
Original Note:
BG recheck = 377. Pt drinking lemonade and regular cola. Educated provided about avoiding sugary drinks. Pt stated 'I am only drinking them because the kitchen didn't send me diet.' MINER PICK made aware, new order provided. See MAR for administration.
Will recheck BG.
[2023-09-23] MEDS: NOVOLOG FLEXPEN 10 UNITS SC (02:15)
[2023-09-23 03:01] VITALS: BP 137/80
[2023-09-23] MEDS: ATIVAN 1 MG PO ×3 (03:56→20:37)
[2023-09-23] MEDS: FLAGYL 500 MG 100 IV ×3 (03:57→20:36)
--- NOTE | 2023-09-23 04:48 | DOWNTIME ---
There was a [employer] Client Customer Contact Sales Associate Downtime on 09/23/2023 from 0100 to 09/23/2023 at 0439. Downtime documentation of patient's care, including medication administrations, has been reconciled in the electronic record per guidelines. Refer to the
patient's paper chart under the miscellaneous tab to see printed paper medication records and downtime forms.
[2023-09-23 04:49] LABS: Glucose - Point of Care 142 mg/dl (70-99)
[2023-09-23] MEDS: VANCOCIN 200 IV ×3 (05:27→22:46)
[2023-09-23] MEDS: STERILE WATER FOR INJECTION 10 ML IV ×2 (05:27→16:41)
[2023-09-23] MEDS: MAXIPIME 2000 MG IV ×2 (05:27→16:41)
[2023-09-23 05:37] LABS: Hematocrit 30.6 % (37.0-47.0); Hemoglobin 10.4 g/dL (12.0-16.0); Mean Corpuscular Hgb 26.1 pg (27.0-31.0); Mean Corpuscular Volume 76.9 fL (81.0-99.0); Mean Platelet Volume 9.2 fL (7.4-10.4); Platelet Count 249 10^3/uL (130-400); Red Blood Cell Count 3.98 10^6/uL (4.20-5.40); Red Cell Dist. Width 14.3 % (11.5-14.5); White Blood Cell Count 5.4 10^3/uL (4.8-10.8)
[2023-09-23 05:41] LABS: INR 1.42; PT 17.2 Sec (11.4-14.6)
[2023-09-23 05:43] LABS: APTT 80.5 Sec (23.4-35.0)
[2023-09-23 05:45] LABS: Blood Urea Nitrogen 7 mg/dl (7-17); Calcium 9.3 mg/dl (8.4-10.2); Carbon Dioxide 31 mmol/L (22-30); Chloride 102 mmol/L (98-107); Estimated Creatinine Clearance > 125 ml/min; Glucose 131 mg/dl (70-99); Potassium 3.3 mmol/L (3.5-5.1); Sodium 136 mmol/L (135-145); eGFR > 60.00
[2023-09-23 08:18] LABS: Magnesium 1.7 mg/dl (1.6-2.3)
[2023-09-23 08:44] LABS: Glucose - Point of Care 188 mg/dl (70-99)
[2023-09-23] MEDS: NOVOLOG FLEXPEN-HIGH RESISTANCE 2 UNITS SC (08:44)
[2023-09-23] MEDS: NOVOLOG FLEXPEN 15 UNITS SC ×3 (08:44→17:11)
[2023-09-23] MEDS: LANTUS 0.400000000000000022 UNITS SC ×2 (08:45→20:37)
[2023-09-23] MEDS: NEURONTIN 900 MG PO ×3 (08:45→23:34)
[2023-09-23] MEDS: SENOKOT-S 2 TABLET PO ×2 (08:46→20:36)
[2023-09-23] MEDS: WELLBUTRIN XL (24 hour extended release) 150 MG PO (08:46)
[2023-09-23] MEDS: CATAPRES 0.100000000000000006 MG PO ×3 (08:47→23:36)
[2023-09-23] MEDS: MIRALAX PO ×2 (08:54→20:36)
[2023-09-23] MEDS: PLAVIX 75 MG PO (08:54)
[2023-09-23] MEDS: ZOFRAN 4 MG IV ×2 (08:55→16:41)
[2023-09-23] MEDS: POLYSPORIN OINTMENT 1 APPLIC TOPICAL ×2 (08:55→20:38)
[2023-09-23] MEDS: DESENEX/MITRAZOL/ZEASORB 1 APPLIC TOPICAL (08:57)
[2023-09-23] MEDS: FLEXERIL 10 MG PO ×3 (10:23→21:16)
[2023-09-23 11:00] VITALS: BP 145/84
[2023-09-23 11:18] LABS: Glucose - Point of Care 377 mg/dl (70-99)
[2023-09-23 11:36] LABS: Glucose - Point of Care 133 mg/dl (70-99)
[2023-09-23] MEDS: NOVOLOG FLEXPEN-HIGH RESISTANCE SC (11:39)
--- NOTE | 2023-09-23 12:20 | W.PN.HOSP.TC ---
Today's Communication/Plan
-
see A/P
Assessment / Plan
Assessment / Plan
HPI: 27-year-old female with past medical history of morbid obesity, type 2 diabetes, anxiety, factor V Leyden, PE/DVT on Coumadin, May-Thurner syndrome, and chronic constipation presented with worsening redness, pain of her left second finger.
Patient states that she underwent a left trigger finger release in the hospital at [place] recently, that got infected. 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
and was unable to bend. She reported fevers at night. She has many drug allergies.
A/P:
# Cellulitis of left second finger with concern for flexor tenosynovitis
# History of recent left trigger finger release at [facility] in [place]
No leukocytosis or left shift, no documented fever upon admission
s/p Incision and drainage left index flexor sheath infection with debridement of significant scarring 09/19
Appreciate orthopedic surgery
Follow wound Cx , so far no growth
Continue IV vanc/Flagyl, cefepime
Patient complains of itching from antibiotics- cont with added oral Benadryl
Right IJ placed 09/17
Records requested from [facility] - patient refused to sign consent for records
ID on board
# L thumb numbness post OR
Ortho on board
Cont to monitor
# Opioid Use Disorder
Patient has documented history of signing out of facilities AMA when opioids and IV Benadryl are not provided
Would make every effort to avoid further IV Benadryl unless related to obtaining contrast (known allergy)
Continue oxycodone 30 mg every 4 hours, Dilaudid 2 mg IV every 3 hours� [employer] will not let you increase the dose
Ordered Narcan 0.4 mg IV as needed
# Anxiety / Depression
# poor insight
Continue Wellbutrin, gabapentin, Ativan, melatonin
# LLE DVT
# Factor V Leiden Deficiency
# May-Thurner Syndrome
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
Cont heparin drip for bridging
Follow daily INR
# DM-II with Hyperglycemia
Continue home Lantus 40 units twice a day, started NovoLog 15 units AC 3 times daily
cover with ISS (high resistance)
Pt refused diabetic diet
# Opioid-induced constipation
Started on MiraLAX twice a day, senna-S twice a day
Dulcolax ordered PRN per pt request
hold PO iron
# Benign Hypertension
Continue clonidine 0.1 mg 3 times daily
# Hyperlipidemia
Continue statin
�
# Obesity due to excess calories and insulin resistance
Affects all aspects of care
Encourage healthy diet and increased activity with goal of weight loss
DVT prophylaxis� heparin drip
Full code
Anticipated Discharge: 24 - 48 hours
Subjective/Interval History
-
Date of Service: September 23, 2023
Objective Data
-
Labs:
Laboratory Results
09/23/23
05:11
WBC 5.4
Hgb 10.4 L
Hct 30.6 L
Plt Count 249
PT 17.2 H
INR 1.42
APTT 80.5 H
Sodium 136
Potassium 3.3 L
Chloride 102
Carbon Dioxide 31 H
BUN 7
Creatinine 0.5 L
Glucose 131 H
Calcium 9.3
Vital Signs:
Vital Signs
Temp Pulse Resp BP Pulse Ox
36.7 C 95 17 167/101 97
09/23/23 03:01 09/23/23 03:01 09/23/23 03:01 09/23/23 08:47 09/23/23 03:01
I&O
09/22/23 09/23/23 09/24/23
06:59 06:59 06:59
Intake Total 800 / 800 1679
Balance 800 / 800 1679
Review of Systems
-
Neuro: Reports Other (numbness of L fingers)
Physical Exam
-
General: Well Developed, Well Nourished, No Apparent Distress, Comfortable and Obese
HEENT: Normocephalic and Atraumatic
Respiratory: Clear to Auscultation; Negative Non Labored Respirations
Cardiac: Regular Rhythm and S1/S2
GI: Soft and Nontender
Skin: Other (L hand in wound dressing )
Neuro: Awake and Alert
Psych: Calm; Negative Intact Judgement/Insight (this patient has NO insight of her conditions)
Data Reviewed
-
Labs: Labs Reviewed by me
[2023-09-23] MEDS: MAGNESIUM SULFATE 100 IV (12:45)
[2023-09-23] MEDS: DULCOLAX 10 MG PO (13:28)
--- NOTE | 2023-09-23 14:08 | W.PN.ID1 ---
Date of Service
Date of Service: September 23, 2023
Today's Communication
Continue abx. Await further input from Hand Sx.
Assessment / Plan
Left hand cellulitis
- improved
Suspected tenosynovitis
Recent trigger finger surgery
Multiple abx allergies; (PCN, Keflex, sulfa)
May-Thurner syndrome
DM
Nephrolithiasis
Factor V Leiden mutation, antiphospholipid syndrome
PE/Recurrent DVT s/p IVC filter, hx thrombectomies, stents x 7
Recommendations:
Continue vancomycin, cefepime and metronidazole.
Wound cultures negative to date.
Advised upper extremity elevation to minimize swelling.
Monitor white count temperature curve.
Local care to the hand wound.
����������������������������������������������������������
Chief Complaint
-: Other (Left hand infection)
Subjective / Review of Systems
Patient seen and examined. Reports ongoing numbness of her left thumb, although active ROM is good through the hand (but slightly diminished and second finger)
Review of Systems: No Fever and No Chills
Vital Signs / Physical Exam
Vital Signs
Vital Signs
Temp Pulse Resp BP Pulse Ox
98.0 F 95 17 167/101 97
09/23/23 03:01 09/23/23 03:01 09/23/23 03:01 09/23/23 08:47 09/23/23 03:01
Physical Exam
Constitutional: No Acute Distress, Comfortable and Non-toxic
Eyes: Sclera Anicteric
Pulmonary: Non Labored; Negative Wheezes
Gastrointestinal: Non Distended
Wound: Other (Left hand dressed. No erythema extending onto forearm. No erythema noted of the fingers.)
Neurological: Awake and Alert
Psychological: Calm
Objective Data
Lab Data
Lab Results
09/23/23 05:11
09/23/23 05:11
PT 17.2 Sec (11.4-14.6) H 09/23/23 05:11
INR 1.42 09/23/23 05:11
APTT 80.5 Sec (23.4-35.0) H 09/23/23 05:11
Estimated Creat Clear > 125 ml/min 09/23/23 05:11
Lactic Acid 0.9 mmol/L (0.7-2.0) 09/19/23 07:19
C-Reactive Protein 12.20 mg/L (0.0-10.00) H 09/18/23 16:08
Most recent labs reviewed.
Micro Results:
09/20/23 11:30 Anaerobic Culture - Preliminary
Finger - Left NO ANAEROBES ISOLATED
09/20/23 11:30 Wound Culture - Preliminary
Finger - Left No growth
Gram Stain - Preliminary
09/18/23 16:08 Blood Culture - Preliminary
Blood/Venous No Growth in 4 days- Final report to follow
Imaging:
09/20/2023 X-ray left hand: No acute fracture or dislocation. Joint spaces are well-maintained. Soft tissues are grossly unremarkable. No convincing radiographic evidence for active osteomyelitis.
--- NOTE | 2023-09-23 14:56 | PHA.VAN.FU ---
Vancomycin Assessment / Plan
- Assessment
Renal Function: Stable
WBC's are: WNL
In the past 24 hrs, patient has been: Afebrile
Concomitant Antimicrobials: cefepime, metronidazole
- Dosing Plan
Continue: Vanc 1000mg Q8H
- Monitoring Plan
Level(s) appropriate: Recheck trough at minimum of weekly intervals, Repeat sooner for changes in renal function or clinical status
Next Level Due (Date): ~09/27, may consider sooner
- Follow Up
Pharmacy will continue to follow.
Vancomycin Follow UP
- -
Patient Age: 27
Patient Sex: Female
Vancomycin Day #: 6
Indication: Skin And Soft Tissue
Requesting Provider: Lei MARIEE
Pertinent Antimicrobial Allergies:
Penicillins - Shortness of Breath
Sulfa (Sulfonamide Antibiotics) - Hives
amoxicillin - Shortness of Breath
cephalexin - tongue swelling/but tolerated cefepime,ceftriaxone, etc.
Height / Weight:
Height 5 ft 5 in
Actual Weight 99.45 kg
IBW in k
Adjusted BW in k
Pertinent Past Medical History: BMI ~36.5, DM, MARQUIS
- Vital Signs / Lab Results
Temp Pulse Resp BP Pulse Ox
98.0 F 95 17 167/101 97
09/23/23 03:01 09/23/23 03:01 09/23/23 03:01 09/23/23 08:47 09/23/23 03:01
Lab Results - Hematology
09/21/23 09/21/23 09/22/23
04:04 12:16 01:01
WBC 6.8 5.9 6.2
09/22/23 09/23/23
09:58 05:11
WBC 5.3 5.4
Lab Results - Chemistry
09/21/23 09/22/23 09/22/23
04:04 01:01 09:58
BUN 11 10 6 L
Creatinine 0.6 0.5 L 0.5 L
Estimated Creat Clear > 125 > 125 > 125
09/23/23
05:11
BUN 7
Creatinine 0.5 L
Estimated Creat Clear > 125
Microbiology Results
09/20/23 11:30 Anaerobic Culture - Preliminary
Finger - Left NO ANAEROBES ISOLATED
09/20/23 11:30 Wound Culture - Preliminary
Finger - Left No growth
Gram Stain - Preliminary
09/18/23 16:08 Blood Culture - Preliminary
Blood/Venous No Growth in 4 days- Final report to follow
Therapeutic Drug Monitoring
Vancomycin Peak 19.9 ug/ml (18-26) 09/21/23 04:00
Vancomycin Trough Cancelled 09/21/23 08:30
[2023-09-23 16:00] VITALS: BP 159/103
[2023-09-23 16:41] LABS: Glucose - Point of Care 327 mg/dl (70-99)
--- NOTE | 2023-09-23 17:05 | W.PN.UPDATE ---
Update Note
Progress Note Update
Pt may be discharged to home from my standpoint
No further surgery is needed at this time
She can F/U with me in about 5-7 days
Antibiotics as per ID
Please set up outpt OT for A/P ROM exercises as outpatient/No Restictions
Wound care instructions previously ordered
GGMD
[2023-09-23] MEDS: NOVOLOG FLEXPEN-HIGH RESISTANCE 10 UNITS SC (17:10)
[2023-09-23 19:51] VITALS: BP 120/92
[2023-09-23] MEDS: DESENEX/MITRAZOL/ZEASORB TOPICAL (20:35)
[2023-09-23 21:33] LABS: Glucose - Point of Care 216 mg/dl (70-99)
[2023-09-23] MEDS: MELATONIN 9 MG PO (22:47)
--- NOTE | 2023-09-23 22:50 | PTCARENOTE ---
Patient being verbally abusive to marketing underwriter, threatening to have marketing underwriter fired and reported because patient hasn't received all PRN meds at the exact minute she requests. Patient has displayed same behavior to other RN's during hospital stay. Patient is
extremely inpatient and is verbally upset with marketing underwriter, even when marketing underwriter is in a different patient's room. Patient states that marketing underwriter and other nurses don't care about her, tells her that she is wrong all the time, and that her concerns aren't being
met. Telesales Agent attempted to address patient concerns and questions in calm and professional manner. Patient continues to be verbally abusive and upset with marketing underwriter despite wrier's multiple attempts to reassure patient. Patient is requesting a different
nurse, states she does not want a male nurse taking care of her. Telesales Agent spoke with charge nurse and nursing supervisor cloth winding and decision was made to provide patient with female nurse. Telesales Agent gave report to changing RN.
[2023-09-23 23:46] VITALS: BP 141/79
[2023-09-24] MEDS: DILAUDID 2 MG IV ×8 (02:05→23:47)
[2023-09-24 03:31] VITALS: BP 155/64
--- NOTE | 2023-09-24 03:38 | PTCARENOTE ---
Assumed care of patient after patient dismissed previous RN around 2335. Full physical assessment completed (refer to worklist). Reviewed plan of care, pt verbalizes understanding. Updated on when next PRNs would be available. Pt rang call bowden
and immediately started yelling for RN repeatedly as RN was responding to [facility]. Educated patient that no response time is immediate and that she has to allow time for staff to respond. While administering IV pain medication through [facility] pt
questioned 'why don't I feel that, how long will it take to get through the line' Explained that hospital policy is to administer IV dilaudid over 3-5 minutes. Due for wound care to be completed, pt requesting it to be done when next pain
medication is given. Plan of care ongoing.
[2023-09-24] MEDS: ATIVAN 1 MG PO ×3 (03:58→19:37)
[2023-09-24] MEDS: ROXICODONE 30 MG PO ×5 (03:59→20:09)
[2023-09-24] MEDS: FLAGYL 500 MG 100 IV ×2 (03:59→11:41)
--- NOTE | 2023-09-24 04:27 | PTCARENOTE ---
Pt rang call [facility], PCT responded, Pt requesting pain medication. While pulling pain medication from Pyxis, pt then called 2 more times requesting pain medication. RN explained to patient that medication was loaded in pyxis on other side of unit,
therefore it required time for RN to retrieve it. Pt then denied calling more than one time. Offer to assist with BID wound care at this time, pt refusing. Educated on importance of BID wound care, pt states 'I'll do it later'. Pt would not make
eye contact throughout interaction. Nursing Commercial Manager made aware. Plan of care ongoing.
[2023-09-24] MEDS: STERILE WATER FOR INJECTION 10 ML IV (05:20)
[2023-09-24] MEDS: VANCOCIN 200 IV (05:21)
[2023-09-24] MEDS: MAXIPIME 2000 MG IV (05:21)
[2023-09-24 06:12] LABS: Hematocrit 31.1 % (37.0-47.0); Hemoglobin 10.7 g/dL (12.0-16.0); Mean Corp Hgb Conc. 34.4 g/dL (33.0-37.0); Mean Corpuscular Hgb 26.4 pg (27.0-31.0); Mean Corpuscular Volume 76.6 fL (81.0-99.0); Mean Platelet Volume 9.4 fL (7.4-10.4); Platelet Count 257 10^3/uL (130-400); Red Blood Cell Count 4.06 10^6/uL (4.20-5.40); Red Cell Dist. Width 14.3 % (11.5-14.5); White Blood Cell Count 4.8 10^3/uL (4.8-10.8)
[2023-09-24 06:20] LABS: INR 1.42; PT 17.4 Sec (11.4-14.6)
[2023-09-24 06:21] LABS: APTT 76.2 Sec (23.4-35.0)
[2023-09-24 06:36] LABS: Blood Urea Nitrogen 7 mg/dl (7-17); Calcium 9.3 mg/dl (8.4-10.2); Carbon Dioxide 28 mmol/L (22-30); Chloride 98 mmol/L (98-107); Estimated Creatinine Clearance > 125 ml/min; Glucose 235 mg/dl (70-99); Potassium 3.9 mmol/L (3.5-5.1); Sodium 135 mmol/L (135-145); eGFR > 60.00
[2023-09-24 07:00] VITALS: BP 167/94
[2023-09-24] MEDS: MIRALAX PO ×3 (08:05→23:21)
[2023-09-24] MEDS: SENOKOT-S 2 TABLET PO ×2 (08:06→21:44)
[2023-09-24] MEDS: NEURONTIN 900 MG PO ×3 (08:06→23:29)
[2023-09-24] MEDS: WELLBUTRIN XL (24 hour extended release) 150 MG PO (08:06)
[2023-09-24] MEDS: FLEXERIL 10 MG PO ×3 (08:07→23:29)
[2023-09-24] MEDS: TYLENOL 650 MG PO ×4 (08:07→20:21)
[2023-09-24] MEDS: POLYSPORIN OINTMENT 1 APPLIC TOPICAL ×2 (08:08→23:32)
[2023-09-24] MEDS: DESENEX/MITRAZOL/ZEASORB 1 APPLIC TOPICAL (08:11)
[2023-09-24 08:14] LABS: Glucose - Point of Care 284 mg/dl (70-99)
[2023-09-24] MEDS: CATAPRES 0.100000000000000006 MG PO ×3 (08:14→23:28)
[2023-09-24] MEDS: NOVOLOG FLEXPEN 15 UNITS SC ×2 (08:48→23:32)
[2023-09-24] MEDS: NOVOLOG FLEXPEN-HIGH RESISTANCE 7 UNITS SC ×2 (08:49→14:17)
[2023-09-24] MEDS: LANTUS 0.400000000000000022 UNITS SC ×2 (08:50→21:27)
[2023-09-24 11:00] VITALS: BP 104/58
--- NOTE | 2023-09-24 11:08 | W.PN.HOSP.TC ---
Today's Communication/Plan
-
see A/P
Assessment / Plan
Assessment / Plan
HPI: 27-year-old female with past medical history of morbid obesity, type 2 diabetes, anxiety, factor V Leyden, PE/DVT on Coumadin, May-Thurner syndrome, and chronic constipation presented with worsening redness, pain of her left second finger.
Patient states that she underwent a left trigger finger release in the hospital at [place] recently, that got infected. 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
and was unable to bend. She reported fevers at night. She has many drug allergies.
A/P:
# Cellulitis of left second finger with concern for flexor tenosynovitis
# History of recent left trigger finger release at [facility] in [place]
No leukocytosis or left shift, no documented fever upon admission
s/p Incision and drainage left index flexor sheath infection with debridement of significant scarring 09/19
Appreciate orthopedic surgery
Follow wound Cx , so far no growth
Continue IV vanc, Flagyl, cefepime
Patient complains of itching from antibiotics- cont with added oral Benadryl
Right IJ placed 09/17
Records requested from [facility] - patient refused to sign consent for records
ID on board
# L thumb numbness post OR
No further surgery is needed at this time per ortho
Follow up with ortho outpt
# Opioid Use Disorder
Patient has documented history of signing out of facilities AMA when opioids and IV Benadryl are not provided
Would make every effort to avoid further IV Benadryl unless related to obtaining contrast (known allergy)
Continue oxycodone 30 mg every 4 hours, Dilaudid 2 mg IV every 3 hours� [employer] will not let you increase the dose
Ordered Narcan 0.4 mg IV as needed
# Anxiety / Depression
# poor insight
Continue Wellbutrin, gabapentin, Ativan, melatonin
# LLE DVT
# Factor V Leiden Deficiency
# May-Thurner Syndrome
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
Cont heparin drip for bridging
Follow daily INR
# DM-II with Hyperglycemia
Continue home Lantus 40 units twice a day
Pt states that she take NovoLog 25 units AC (adjusted)
She is asking for short acting insulin 15 units at night with her midnight snack, ordered
cover with ISS (high resistance)
Pt refused diabetic diet
# Opioid-induced constipation
Started on MiraLAX twice a day, senna-S twice a day
Dulcolax ordered PRN per pt request
hold PO iron
# Benign Hypertension
Continue clonidine 0.1 mg 3 times daily
# Hyperlipidemia
Continue statin
�
# Obesity due to excess calories and insulin resistance
Affects all aspects of care
Encourage healthy diet and increased activity with goal of weight loss
DVT prophylaxis� heparin drip
Full code
DW RN
Anticipated Discharge: 24 - 48 hours
Subjective/Interval History
-
Date of Service: September 24, 2023
Objective Data
-
Labs:
Laboratory Results
09/24/23
05:45
WBC 4.8
Hgb 10.7 L
Hct 31.1 L
Plt Count 257
PT 17.4 H
INR 1.42
APTT 76.2 H
Sodium 135
Potassium 3.9
Chloride 98
Carbon Dioxide 28
BUN 7
Creatinine 0.5 L
Glucose 235 H
Calcium 9.3
Vital Signs:
Vital Signs
Temp Pulse Resp BP Pulse Ox
36.5 C 103 18 167/94 99
09/24/23 07:00 09/24/23 08:14 09/24/23 07:00 09/24/23 08:14 09/24/23 07:00
I&O
09/23/23 09/24/23 09/25/23
06:59 06:59 06:59
Intake Total 1679 / 1679 180 / 180
Balance 168 / 168 180 / 180
Review of Systems
-
Neuro: Reports Other (numbness of L fingers)
Physical Exam
-
General: Well Developed, Well Nourished, No Apparent Distress, Comfortable and Obese
HEENT: Normocephalic and Atraumatic
Respiratory: Clear to Auscultation; Negative Non Labored Respirations
Cardiac: Regular Rhythm and S1/S2
GI: Soft and Nontender
Skin: Other (L hand in wound dressing )
Neuro: Awake and Alert
Psych: Calm; Negative Intact Judgement/Insight (this patient has NO insight of her conditions)
Data Reviewed
-
Labs: Labs Reviewed by me
[2023-09-24 12:51] LABS: Glucose - Point of Care 256 mg/dl (70-99)
[2023-09-24] MEDS: ZOFRAN 4 MG IV (13:30)
[2023-09-24] MEDS: DULCOLAX 10 MG PO ×2 (13:31→21:44)
--- NOTE | 2023-09-24 14:10 | W.PN.ID1 ---
Date of Service
Date of Service: September 24, 2023
Today's Communication
Narrow to levaquin 500 mg daily for an additional 14 days.
Assessment / Plan
Left hand cellulitis
- improved
Suspected tenosynovitis
Recent trigger finger surgery
Multiple abx allergies; (PCN, Keflex, sulfa)
May-Thurner syndrome
DM
Nephrolithiasis
Factor V Leiden mutation, antiphospholipid syndrome
PE/Recurrent DVT s/p IVC filter, hx thrombectomies, stents x 7
Recommendations:
Wound cultures negative to date.
narrow to levaquin 500 mg daily for an additional 14 days (given possibility of tenosynovitis)
Advised upper extremity elevation to minimize swelling.
Local care to the hand wound.
����������������������������������������������������������
Chief Complaint
-: Other (Left hand infection)
Subjective / Review of Systems
Review of Systems: No Fever and No Chills
Vital Signs / Physical Exam
Vital Signs
Vital Signs
Temp Pulse Resp BP Pulse Ox
97.8 F 88 18 104/58 98
09/24/23 11:00 09/24/23 11:00 09/24/23 11:00 09/24/23 11:00 09/24/23 11:00
Physical Exam
Constitutional: No Acute Distress, Comfortable and Non-toxic
Eyes: Sclera Anicteric
Pulmonary: Non Labored
Wound: Other (left hand with intact incision. Sutures in place. No drainage or oozing. No erythema.)
Neurological: Awake and Alert
Psychological: Calm
Objective Data
Lab Data
Lab Results
09/24/23 05:45
09/24/23 05:45
PT 17.4 Sec (11.4-14.6) H 09/24/23 05:45
INR 1.42 09/24/23 05:45
APTT 76.2 Sec (23.4-35.0) H 09/24/23 05:45
Estimated Creat Clear > 125 ml/min 09/24/23 05:45
Lactic Acid 0.9 mmol/L (0.7-2.0) 09/19/23 07:19
C-Reactive Protein 12.20 mg/L (0.0-10.00) H 09/18/23 16:08
Most recent labs reviewed.
Micro Results:
09/18/23 16:08 Blood Culture - Final
Blood/Venous No Growth - Final Report
09/20/23 11:30 Anaerobic Culture - Preliminary
Finger - Left NO ANAEROBES ISOLATED
09/20/23 11:30 Wound Culture - Preliminary
Finger - Left No growth
Gram Stain - Preliminary
Imaging:
09/20/2023 X-ray left hand: No acute fracture or dislocation. Joint spaces are well-maintained. Soft tissues are grossly unremarkable. No convincing radiographic evidence for active osteomyelitis.
Care Review
Plan reviewed with: Physician (Hospitalist) and Other (Clincal Pharmicist)
[2023-09-24] MEDS: NOVOLOG FLEXPEN 25 UNITS SC ×2 (14:16→18:38)
[2023-09-24] MEDS: VANCOCIN IV (14:21)
[2023-09-24] MEDS: LEVAQUIN 500 MG PO (14:28)
[2023-09-24 15:00] VITALS: BP 134/86
[2023-09-24] MEDS: HEPARIN 25000 UNITS/250 ML IV (16:19)
[2023-09-24 17:36] LABS: Glucose - Point of Care 222 mg/dl (70-99)
[2023-09-24] MEDS: COUMADIN 10 MG PO (17:46)
[2023-09-24] MEDS: NOVOLOG FLEXPEN-HIGH RESISTANCE 4 UNITS SC (18:37)
[2023-09-24 20:02] VITALS: BP 122/82
[2023-09-24 21:10] LABS: Glucose - Point of Care 274 mg/dl (70-99)
[2023-09-24] MEDS: MELATONIN 9 MG PO (21:44)
[2023-09-24] MEDS: DESENEX/MITRAZOL/ZEASORB TOPICAL (23:21)
[2023-09-24 23:33] LABS: Glucose - Point of Care 339 mg/dl (70-99)
[2023-09-25] VITALS (7 sets, daily range): BP systolic 96–155; BP diastolic 69–101
[2023-09-25] MEDS: TYLENOL 650 MG PO ×6 (00:25→20:57)
[2023-09-25] MEDS: ROXICODONE 30 MG PO ×6 (00:25→20:58)
[2023-09-25] MEDS: DILAUDID 2 MG IV ×6 (03:25→22:13)
[2023-09-25] MEDS: ATIVAN 1 MG PO ×3 (03:26→20:19)
[2023-09-25 06:47] LABS: INR 1.34; PT 16.7 Sec (11.4-14.6)
[2023-09-25 06:49] LABS: APTT 93.7 Sec (23.4-35.0); Hematocrit 31.8 % (37.0-47.0); Hemoglobin 10.5 g/dL (12.0-16.0); Mean Corpuscular Hgb 26.1 pg (27.0-31.0); Mean Corpuscular Volume 79.1 fL (81.0-99.0); Mean Platelet Volume 9.4 fL (7.4-10.4); Platelet Count 244 10^3/uL (130-400); Red Blood Cell Count 4.02 10^6/uL (4.20-5.40); Red Cell Dist. Width 14.2 % (11.5-14.5); White Blood Cell Count 4.6 10^3/uL (4.8-10.8)
[2023-09-25 07:06] LABS: Blood Urea Nitrogen 7 mg/dl (7-17); Calcium 9.1 mg/dl (8.4-10.2); Carbon Dioxide 31 mmol/L (22-30); Chloride 99 mmol/L (98-107); Estimated Creatinine Clearance > 125 ml/min; Glucose 238 mg/dl (70-99); Sodium 134 mmol/L (135-145); eGFR > 60.00
[2023-09-25] MEDS: NEURONTIN 900 MG PO ×2 (08:19→16:23)
[2023-09-25] MEDS: SENOKOT-S 2 TABLET PO ×2 (08:20→20:59)
[2023-09-25] MEDS: PLAVIX 75 MG PO (08:20)
[2023-09-25] MEDS: WELLBUTRIN XL (24 hour extended release) 150 MG PO (08:20)
[2023-09-25] MEDS: POLYSPORIN OINTMENT 1 APPLIC TOPICAL (08:22)
[2023-09-25] MEDS: CATAPRES 0.100000000000000006 MG PO ×3 (08:30→22:27)
[2023-09-25] MEDS: DESENEX/MITRAZOL/ZEASORB 1 APPLIC TOPICAL ×2 (08:32→22:15)
[2023-09-25] MEDS: MIRALAX PO ×2 (08:33→20:25)
[2023-09-25 08:49] LABS: Glucose - Point of Care 221 mg/dl (70-99)
[2023-09-25] MEDS: LEVAQUIN PO (09:00)
[2023-09-25] MEDS: NOVOLOG FLEXPEN 25 UNITS SC ×2 (09:52→14:57)
[2023-09-25] MEDS: NOVOLOG FLEXPEN-HIGH RESISTANCE 4 UNITS SC (09:53)
[2023-09-25] MEDS: LANTUS 0.400000000000000022 UNITS SC ×2 (09:57→20:19)
--- NOTE | 2023-09-25 10:53 | W.PN.ID1 ---
Date of Service
Date of Service: September 25, 2023
Today's Communication
Continue levaquin
Assessment / Plan
Left hand cellulitis
- improved
Suspected tenosynovitis
Recent trigger finger surgery
Multiple abx allergies; (PCN, Keflex, sulfa)
May-Thurner syndrome
DM
Nephrolithiasis
Factor V Leiden mutation, antiphospholipid syndrome
PE/Recurrent DVT s/p IVC filter, hx thrombectomies, stents x 7
Recommendations:
Wound cultures negative to date.
Continue levaquin 500 mg daily through 10/08/2023 (given possibility of tenosynovitis)
Advised upper extremity elevation to minimize swelling.
Local care to the hand wound.
����������������������������������������������������������
Chief Complaint
-: Other (Left hand infection)
Subjective / Review of Systems
Review of Systems: No Fever and No Chills
Vital Signs / Physical Exam
Vital Signs
Vital Signs
Temp Pulse Resp BP Pulse Ox
98.2 F 92 16 150/93 100
09/25/23 08:56 09/25/23 08:56 09/25/23 08:56 09/25/23 08:56 09/25/23 08:56
Physical Exam
Constitutional: No Acute Distress, Comfortable and Non-toxic
Eyes: Sclera Anicteric
Pulmonary: Non Labored
Wound: Other (Left hand wound dressed. No erythema extending up the arm, floor of index finger. Mild ongoing index finger edema.)
Neurological: Awake and Alert
Psychological: Calm
Objective Data
Lab Data
Lab Results
09/25/23 06:27
09/25/23 06:27
PT 16.7 Sec (11.4-14.6) H 09/25/23 06:27
INR 1.34 09/25/23 06:27
APTT 93.7 Sec (23.4-35.0) H 09/25/23 06:27
Estimated Creat Clear > 125 ml/min 09/25/23 06:27
Lactic Acid 0.9 mmol/L (0.7-2.0) 09/19/23 07:19
C-Reactive Protein 12.20 mg/L (0.0-10.00) H 09/18/23 16:08
Most recent labs reviewed.
Micro Results:
09/20/23 11:30 Wound Culture - Final
Finger - Left No growth
Gram Stain - Final
09/20/23 11:30 Anaerobic Culture - Final
Finger - Left NO ANAEROBES ISOLATED
09/18/23 16:08 Blood Culture - Final
Blood/Venous No Growth - Final Report
Imaging:
09/20/2023 X-ray left hand: No acute fracture or dislocation. Joint spaces are well-maintained. Soft tissues are grossly unremarkable. No convincing radiographic evidence for active osteomyelitis.
--- NOTE | 2023-09-25 11:14 | W.PN.HOSP.TC ---
Today's Communication/Plan
-
see A/P
Assessment / Plan
Assessment / Plan
HPI: 27-year-old female with past medical history of morbid obesity, type 2 diabetes, anxiety, factor V Leyden, PE/DVT on Coumadin, May-Thurner syndrome, and chronic constipation presented with worsening redness, pain of her left second finger.
Patient states that she underwent a left trigger finger release in the hospital at [place] recently, that got infected. 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
and was unable to bend. She reported fevers at night. She has many drug allergies.
A/P:
# Cellulitis of left second finger with concern for flexor tenosynovitis
# History of recent left trigger finger release at [facility] in [place]
No leukocytosis or left shift, no documented fever upon admission
s/p Incision and drainage left index flexor sheath infection with debridement of significant scarring 09/19
Appreciate orthopedic surgery
wound Cx no growth
IV vanc, Flagyl, cefepime narrowed to Levaquin 500 mg daily through 10/08/2023 (given possibility of tenosynovitis)
Patient complains of itching from antibiotics- cont with added oral Benadryl
Right IJ placed 09/17
Records requested from [facility] - patient refused to sign consent for records
Appreciate ID
# L thumb numbness/swelling post OR
No further surgery is needed at this time per ortho
Follow up with ortho outpt
# Opioid Use Disorder
Patient has documented history of signing out of facilities AMA when opioids and IV Benadryl are not provided
Would make every effort to avoid further IV Benadryl unless related to obtaining contrast (known allergy)
Continue oxycodone 30 mg every 4 hours
Decrease Dilaudid 2 mg IV to every 4 hours (from every 3 hours) PRN
Ordered Narcan 0.4 mg IV as needed
# Anxiety / Depression
# Poor clinical insight
Continue Wellbutrin, gabapentin, Ativan, melatonin
# LLE DVT
# Factor V Leiden Deficiency
# May-Thurner Syndrome
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
Cont heparin drip for bridging, could change to Lovenox SQ for bridging if pt is accepted at [facility]
Follow daily INR
# DM-II with Hyperglycemia
Continue home Lantus 40 units twice a day
Pt states that she take NovoLog 25 units AC (adjusted)
She is asking for short acting insulin 15 units at night with her midnight snack, ordered
cover with ISS (high resistance)
Pt refuses diabetic diet
# Opioid-induced constipation
Started on MiraLAX twice a day, senna-S twice a day
Dulcolax ordered PRN per pt request
hold PO iron
# Benign Hypertension
Continue clonidine 0.1 mg 3 times daily
# Hyperlipidemia
Continue statin
�
# Obesity due to excess calories and insulin resistance
Affects all aspects of care
Encourage healthy diet and increased activity with goal of weight loss
DVT prophylaxis� heparin drip
Full code
DW RN
DW CM
Anticipated Discharge: Within 24 hours
Subjective/Interval History
-
Date of Service: September 25, 2023
Objective Data
-
Labs:
Laboratory Results
09/25/23
06:27
WBC 4.6 L
Hgb 10.5 L
Hct 31.8 L
Plt Count 244
PT 16.7 H
INR 1.34
APTT 93.7 H
Sodium 134 L
Potassium 4.0
Chloride 99
Carbon Dioxide 31 H
BUN 7
Creatinine 0.5 L
Glucose 238 H
Calcium 9.1
Vital Signs:
Vital Signs
Temp Pulse Resp BP Pulse Ox
36.8 C 92 16 150/93 100
09/25/23 08:56 09/25/23 08:56 09/25/23 08:56 09/25/23 08:56 09/25/23 08:56
I&O
09/24/23 09/25/23 09/26/23
06:59 06:59 06:59
Intake Total 180 / 180 3060 / 3060
Balance 180 / 180 3060 / 3060
Review of Systems
-
Neuro: Reports Other (numbness and swelling of L second finger)
Physical Exam
-
General: Well Developed, Well Nourished, No Apparent Distress, Comfortable and Obese
HEENT: Normocephalic and Atraumatic
Respiratory: Clear to Auscultation; Negative Non Labored Respirations
Cardiac: Regular Rhythm and S1/S2
GI: Soft and Nontender
Skin: Other (L hand in wound dressing )
Neuro: Awake and Alert
Psych: Calm; Negative Intact Judgement/Insight (this patient has NO insight of her conditions)
Data Reviewed
-
Labs: Labs Reviewed by me
[2023-09-25] MEDS: LEVAQUIN 500 MG PO (11:27)
[2023-09-25] MEDS: ZOFRAN 4 MG IV (11:27)
[2023-09-25] MEDS: HEPARIN 25000 UNITS/250 ML IV (12:09)
[2023-09-25] MEDS: FLEXERIL 10 MG PO (12:11)
[2023-09-25] MEDS: NOVOLOG FLEXPEN SC (12:37)
[2023-09-25] MEDS: NOVOLOG FLEXPEN-HIGH RESISTANCE SC (12:39)
[2023-09-25 13:02] LABS: Glucose - Point of Care 262 mg/dl (70-99)
[2023-09-25] MEDS: NOVOLOG FLEXPEN-HIGH RESISTANCE 7 UNITS SC (14:57)
[2023-09-25 19:19] LABS: Glucose - Point of Care 200 mg/dl (70-99)
[2023-09-25] MEDS: COUMADIN 10 MG PO (20:26)
[2023-09-25 21:58] LABS: Glucose - Point of Care 364 mg/dl (70-99)
[2023-09-25] MEDS: MELATONIN 9 MG PO (22:11)
[2023-09-25] MEDS: NOVOLOG FLEXPEN 15 UNITS SC (22:27)
[2023-09-26] MEDS: NEURONTIN 900 MG PO ×3 (00:12→15:33)
[2023-09-26 00:17] LABS: Glucose - Point of Care 285 mg/dl (70-99)
[2023-09-26] MEDS: ROXICODONE 30 MG PO ×6 (00:57→21:46)
[2023-09-26] MEDS: DILAUDID 2 MG IV ×3 (02:06→10:07)
[2023-09-26] MEDS: POLYSPORIN OINTMENT 1 APPLIC TOPICAL ×3 (02:19→20:18)
[2023-09-26 03:36] VITALS: BP 124/82
[2023-09-26] MEDS: ATIVAN 1 MG PO ×3 (03:56→20:16)
[2023-09-26] MEDS: TYLENOL 650 MG PO ×2 (06:03→13:41)
[2023-09-26 07:20] VITALS: BP 139/79
[2023-09-26 07:35] LABS: Hematocrit 31.6 % (37.0-47.0); Hemoglobin 10.7 g/dL (12.0-16.0); Mean Corp Hgb Conc. 33.9 g/dL (33.0-37.0); Mean Corpuscular Hgb 26.1 pg (27.0-31.0); Mean Corpuscular Volume 77.1 fL (81.0-99.0); Mean Platelet Volume 9.1 fL (7.4-10.4); Platelet Count 255 10^3/uL (130-400); Red Cell Dist. Width 14.4 % (11.5-14.5); White Blood Cell Count 5.7 10^3/uL (4.8-10.8)
[2023-09-26 07:45] LABS: INR 1.57; PT 18.6 Sec (11.4-14.6)
[2023-09-26] MEDS: WELLBUTRIN XL (24 hour extended release) 150 MG PO (08:35)
[2023-09-26] MEDS: SENOKOT-S 2 TABLET PO (08:35)
[2023-09-26] MEDS: PLAVIX 75 MG PO (08:35)
[2023-09-26 08:36] LABS: Glucose - Point of Care 254 mg/dl (70-99)
[2023-09-26] MEDS: CATAPRES 0.100000000000000006 MG PO ×3 (08:36→21:45)
[2023-09-26] MEDS: NOVOLOG FLEXPEN-HIGH RESISTANCE 7 UNITS SC (08:37)
[2023-09-26] MEDS: LEVAQUIN 500 MG PO (08:38)
[2023-09-26] MEDS: NOVOLOG FLEXPEN 25 UNITS SC ×3 (08:38→17:46)
[2023-09-26] MEDS: MIRALAX 17 GRAMS PO (08:39)
[2023-09-26] MEDS: DESENEX/MITRAZOL/ZEASORB 1 APPLIC TOPICAL ×2 (08:39→20:20)
[2023-09-26] MEDS: LANTUS 0.400000000000000022 UNITS SC ×2 (08:39→21:45)
[2023-09-26 08:52] LABS: Blood Urea Nitrogen 8 mg/dl (7-17); Calcium 9.4 mg/dl (8.4-10.2); Carbon Dioxide 28 mmol/L (22-30); Chloride 98 mmol/L (98-107); Estimated Creatinine Clearance > 125 ml/min; Glucose 244 mg/dl (70-99); Potassium 4.1 mmol/L (3.5-5.1); Sodium 132 mmol/L (135-145); eGFR > 60.00
--- NOTE | 2023-09-26 11:07 | W.PN.HOSP.TC ---
Today's Communication/Plan
-
see A/P
Assessment / Plan
Assessment / Plan
HPI: 27-year-old female with past medical history of morbid obesity, type 2 diabetes, anxiety, factor V Leyden, PE/DVT on Coumadin, May-Thurner syndrome, and chronic constipation presented with worsening redness, pain of her left second finger.
Patient states that she underwent a left trigger finger release in the hospital at [place] recently, that got infected. 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
and was unable to bend. She reported fevers at night. She has many drug allergies.
A/P:
# Cellulitis of left second finger with concern for flexor tenosynovitis
# History of recent left trigger finger release at [facility] in [place]
No leukocytosis or left shift, no documented fever upon admission
s/p Incision and drainage left index flexor sheath infection with debridement of significant scarring 09/19
Appreciate orthopedic surgery
wound Cx no growth
IV vanc, Flagyl, cefepime narrowed to Levaquin 500 mg daily through 10/08/2023 (given possibility of tenosynovitis)
Patient complains of itching from antibiotics- oral Benadryl added (she has been refusing to take)
Right IJ placed 09/17
Records requested from [facility] - patient refused to sign consent for records
Appreciate ID
# L thumb numbness/swelling post OR
No further surgery is needed at this time per ortho
Follow up with ortho outpt
# Opioid Use Disorder
Patient has documented history of signing out of facilities AMA when opioids and IV Benadryl are not provided.
She has drug seeking behavior.
Would make every effort to avoid further IV Benadryl unless related to obtaining contrast (known allergy).
Continue oxycodone 30 mg every 4 hours
Pt was on much higher dose of IV Dilaudid, and since it has been several days post op with good recovery and that she has opiate use disorder/drug seeking, would further decrease Dilaudid dose to 1 mg IV Q4H (from 2 mg Q4H yesterday) PRN. Pt has
been informed of this.
Ordered Narcan 0.4 mg IV as needed
# Anxiety / Depression
# Poor clinical insight
Continue Wellbutrin, gabapentin, Ativan, melatonin
# LLE DVT
# Factor V Leiden Deficiency
# May-Thurner Syndrome
Resumed PROCUREMENT COST COORDINATOR Coumadin / Plavix since no plan for additional surgery per ortho
Cont heparin drip for bridging, could change to Lovenox SQ for bridging if pt can be discharged to SNF. I do NOT think she has the insight to do Lovenox bridging at home.
Follow daily INR
# DM-II with Hyperglycemia
Continue home Lantus 40 units twice a day
Pt states that she take NovoLog 25 units AC (adjusted)
She is asking for short acting insulin 15 units at night with her midnight snack, ordered
cover with ISS (high resistance)
Pt refuses diabetic diet
# Opioid-induced constipation
Started on MiraLAX twice a day, senna-S twice a day
Dulcolax ordered PRN per pt request
hold PO iron
# Benign Hypertension
Continue clonidine 0.1 mg 3 times daily
# Hyperlipidemia
Continue statin
�
# Obesity due to excess calories and insulin resistance
Affects all aspects of care
Encourage healthy diet and increased activity with goal of weight loss
DVT prophylaxis� heparin drip bridge back to Coumadin
Full code
DW RN
Anticipated Discharge: 24 - 48 hours
Subjective/Interval History
-
Date of Service: September 26, 2023
Objective Data
-
Labs:
Laboratory Results
09/26/23
07:25
WBC 5.7
Hgb 10.7 L
Hct 31.6 L
Plt Count 255
PT 18.6 H
INR 1.57
Sodium 132 L
Potassium 4.1
Chloride 98
Carbon Dioxide 28
BUN 8
Creatinine 0.5 L
Glucose 244 H
Calcium 9.4
Vital Signs:
Vital Signs
Temp Pulse Resp BP Pulse Ox
37.1 C 81 16 139/79 96
09/26/23 07:20 09/26/23 07:20 09/26/23 07:20 09/26/23 07:20 09/26/23 07:20
I&O
09/25/23 09/26/23 09/27/23
06:59 06:59 06:59
Intake Total 3060 / 3060 156 / 156
Balance 3060 / 3060 156 / 156
Review of Systems
-
Neuro: Reports Other (reports L second finger pain)
Physical Exam
-
General: Well Developed, Well Nourished, No Apparent Distress, Comfortable and Obese
HEENT: Normocephalic and Atraumatic
Respiratory: Clear to Auscultation; Negative Non Labored Respirations
Cardiac: Regular Rhythm and S1/S2
GI: Soft and Nontender
Skin: Other (L hand in wound dressing )
Neuro: Awake and Alert
Psych: Calm; Negative Intact Judgement/Insight (this patient has NO insight of her conditions)
Data Reviewed
-
Labs: Labs Reviewed by me
[2023-09-26 11:25] VITALS: BP 110/68
[2023-09-26] MEDS: NOVOLOG FLEXPEN-HIGH RESISTANCE SC (12:47)
[2023-09-26] MEDS: NOVOLOG FLEXPEN SC (12:47)
[2023-09-26] MEDS: FLEXERIL 10 MG PO ×2 (13:42→23:59)
[2023-09-26] MEDS: DILAUDID 1 MG IV ×3 (14:13→21:42)
[2023-09-26 14:59] LABS: Glucose - Point of Care 363 mg/dl (70-99)
[2023-09-26 15:08] VITALS: BP 124/64
--- NOTE | 2023-09-26 15:11 | PTCARENOTE ---
PT took off surgical dressing on her own and without my recommendations. She keeps touching and rubbing surgical wound. Her hands have visible dirt on it and i have advised her to wash her hands. she told me she would wash them. PT Advised to not
touch surgical dressing but said she wanted the dressing off. Pt reused 12 noon Blood sugar and meal. PT refused am levaquin. PT very upset about reduction in narcotics by MD and very upset about diagnosis noted in the medical record on drug
dependency.
[2023-09-26] MEDS: BENADRYL 50 MG PO (15:34)
[2023-09-26] MEDS: ZOFRAN 4 MG IV (15:34)
[2023-09-26 17:36] LABS: Glucose - Point of Care 311 mg/dl (70-99)
[2023-09-26] MEDS: COUMADIN 10 MG PO (17:40)
[2023-09-26] MEDS: COUMADIN PO (17:45)
[2023-09-26] MEDS: NOVOLOG FLEXPEN-HIGH RESISTANCE 10 UNITS SC (17:46)
[2023-09-26 17:55] LABS: APTT 79.7 Sec (23.4-35.0)
[2023-09-26 19:00] VITALS: BP 149/91
[2023-09-26] MEDS: MIRALAX PO (20:21)
[2023-09-26] MEDS: SENOKOT-S PO (20:21)
[2023-09-26 21:32] LABS: Glucose - Point of Care 302 mg/dl (70-99)
[2023-09-26] MEDS: NOVOLOG FLEXPEN 15 UNITS SC (21:46)
[2023-09-26] MEDS: MELATONIN 9 MG PO (21:52)
[2023-09-26 23:00] VITALS: BP 112/71
[2023-09-27 03:00] VITALS: BP 137/91
[2023-09-27] MEDS: ROXICODONE 30 MG PO ×6 (03:17→22:46)
[2023-09-27] MEDS: DILAUDID 1 MG IV ×6 (03:20→22:45)
[2023-09-27] MEDS: ATIVAN 1 MG PO ×3 (03:26→20:36)
[2023-09-27] MEDS: TYLENOL 650 MG PO ×3 (03:26→22:45)
[2023-09-27] MEDS: HEPARIN 25000 UNITS/250 ML IV ×2 (03:27→18:22)
--- NOTE | 2023-09-27 03:40 | PTCARENOTE ---
Patient refused pulse ox and having temperature taken.
[2023-09-27 05:48] LABS: Hematocrit 32.2 % (37.0-47.0); Hemoglobin 10.7 g/dL (12.0-16.0); Mean Corp Hgb Conc. 33.2 g/dL (33.0-37.0); Mean Corpuscular Volume 78.2 fL (81.0-99.0); Mean Platelet Volume 9.1 fL (7.4-10.4); Platelet Count 246 10^3/uL (130-400); Red Blood Cell Count 4.12 10^6/uL (4.20-5.40); Red Cell Dist. Width 14.3 % (11.5-14.5); White Blood Cell Count 5.3 10^3/uL (4.8-10.8)
[2023-09-27 05:58] LABS: INR 1.32; PT 16.2 Sec (11.4-14.6)
[2023-09-27 06:00] LABS: APTT 63.7 Sec (23.4-35.0)
[2023-09-27 06:31] LABS: Blood Urea Nitrogen 9 mg/dl (7-17); Calcium 9.3 mg/dl (8.4-10.2); Carbon Dioxide 30 mmol/L (22-30); Chloride 100 mmol/L (98-107); Estimated Creatinine Clearance > 125 ml/min; Glucose 234 mg/dl (70-99); Potassium 4.2 mmol/L (3.5-5.1); Sodium 135 mmol/L (135-145); eGFR > 60.00
[2023-09-27] MEDS: HEPARIN 8000 UNITS IV (06:36)
[2023-09-27 07:14] LABS: Glucose - Point of Care 310 mg/dl (70-99)
[2023-09-27 08:09] VITALS: BP 130/61
[2023-09-27] MEDS: NOVOLOG FLEXPEN-HIGH RESISTANCE 10 UNITS SC ×2 (08:12→13:05)
[2023-09-27] MEDS: NOVOLOG FLEXPEN 25 UNITS SC ×3 (08:12→18:21)
[2023-09-27] MEDS: NEURONTIN 900 MG PO ×4 (08:12→23:27)
[2023-09-27] MEDS: LANTUS 0.400000000000000022 UNITS SC ×2 (08:12→22:44)
[2023-09-27] MEDS: SENOKOT-S 2 TABLET PO (08:13)
[2023-09-27] MEDS: PLAVIX 75 MG PO (08:13)
[2023-09-27] MEDS: CATAPRES 0.100000000000000006 MG PO ×3 (08:13→23:27)
[2023-09-27] MEDS: POLYSPORIN OINTMENT TOPICAL ×3 (08:13→20:39)
[2023-09-27] MEDS: WELLBUTRIN XL (24 hour extended release) 150 MG PO (08:13)
[2023-09-27] MEDS: MIRALAX PO ×2 (08:17→20:39)
[2023-09-27] MEDS: FLEXERIL 10 MG PO ×3 (08:25→23:27)
[2023-09-27] MEDS: DESENEX/MITRAZOL/ZEASORB 1 APPLIC TOPICAL (08:27)
--- NOTE | 2023-09-27 08:45 | W.PN.UPDATE ---
Update Note
Progress Note Update
Was asked by nursing staff while on the floor to see patient and discuss concerns of swelling and numbness. Patient reports that she has been experiencing increased swelling and some numbness in her index finger. She does show me some pictures
today that show some fairly typical postoperative appearance of hand after I&D. She does report that she texted pictures to an on-call physician at [facility] who reported that this was 'concerning'. I explained to patient that I
would expect there to be some level of swelling and redness postoperatively and certainly some altered sensation in her finger can be attributable to some degree of swelling in the finger. She is very amenable to this explanation and stated
understanding. Would recommend again close outpatient follow-up with surgeon of record. Would recommend continued soaks and dressing changes as previous wound care instructions indicate. Follow-up in outpatient setting with Dr. Howard upon
discharge. No further orthopedic intervention planned.
[2023-09-27] MEDS: LEVAQUIN PO (09:04)
[2023-09-27] MEDS: FLUSH (NSS) 2 FLUSH IV ×3 (10:43→18:40)
--- NOTE | 2023-09-27 11:30 | VATNOTE ---
Patient with central line in place. Patient stated to this RN, 'I may choose to leave today' and declined routine redress of TLC. Patient educated on need for proper TLC maintenance, and she appears to be agreeable to care if she is not discharged
today. PCN updated.
--- NOTE | 2023-09-27 11:43 | W.PN.HOSP.TC ---
Today's Communication/Plan
-
see A/P
Assessment / Plan
Assessment / Plan
HPI: 27-year-old female with past medical history of morbid obesity, type 2 diabetes, anxiety, factor V Leyden, PE/DVT on Coumadin, May-Thurner syndrome, and chronic constipation presented with worsening redness, pain of her left second finger.
Patient states that she underwent a left trigger finger release in the hospital at [place] recently, that got infected. 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
and was unable to bend. She reported fevers at night. She has many drug allergies.
A/P:
# Cellulitis of left second finger with concern for flexor tenosynovitis
# History of recent left trigger finger release at [facility] in [place]
No leukocytosis or left shift, no documented fever upon admission
s/p Incision and drainage left index flexor sheath infection with debridement of significant scarring 09/19
Appreciate orthopedic surgery
wound Cx no growth
IV vanc, Flagyl, cefepime narrowed to Levaquin 500 mg daily through 10/08/2023 (given possibility of tenosynovitis)
Patient complains of itching from antibiotics- oral Benadryl added (she has been refusing to take)
Right IJ placed 09/17
Appreciate ID
# L thumb numbness/swelling post OR
this is expected post op per ortho
No further surgery is needed at this time per ortho
Follow up with ortho outpt
# Opioid Use Disorder
Patient has documented history of signing out of facilities AMA when opioids and IV Benadryl are not provided.
She has drug seeking behavior.
Would make every effort to avoid further IV Benadryl unless related to obtaining contrast (known allergy).
Continue oxycodone 30 mg every 4 hours
Pt was on much higher dose of IV Dilaudid. Since it has been several days post op with good recovery and that pt has opiate use disorder/drug seeking behavior, IV Dilaudid was decreased to 1 mg IV Q4H PRN- cont current dose. Pt has been informed of
this.
Ordered Narcan 0.4 mg IV as needed
# Anxiety / Depression
# Poor clinical insight
Continue Wellbutrin, gabapentin, Ativan, melatonin
# LLE DVT
# Factor V Leiden Deficiency
# May-Thurner Syndrome
Resumed PORTFOLIO CONSULTANT Coumadin / Plavix since no plan for additional surgery per ortho
Cont heparin drip for bridging, could change to Lovenox SQ for bridging if pt can be discharged to SNF. I do NOT think she has the insight to do Lovenox bridging at home.
Follow daily INR
# DM-II with Hyperglycemia
Continue home Lantus 40 units twice a day
Pt states that she take NovoLog 25 units AC (adjusted)
She is asking for short acting insulin 15 units at night with her midnight snack, ordered
cover with ISS (high resistance)
Pt refuses diabetic diet
# Opioid-induced constipation
Started on MiraLAX twice a day, senna-S twice a day
Dulcolax ordered PRN per pt request
hold PO iron
# Benign Hypertension
Continue clonidine 0.1 mg 3 times daily
# Hyperlipidemia
Continue statin
�
# Obesity due to excess calories and insulin resistance
Affects all aspects of care
Encourage healthy diet and increased activity with goal of weight loss
DVT prophylaxis� heparin drip bridge back to Coumadin
Full code
DW RN
Anticipated Discharge: 24 - 48 hours
Subjective/Interval History
-
Date of Service: September 27, 2023
Objective Data
-
Labs:
Laboratory Results
09/27/23 09/27/23
05:43 12:00
WBC 5.3
Hgb 10.7 L
Hct 32.2 L
Plt Count 246
PT 16.2 H
INR 1.32
APTT 63.7 H Pending
Sodium 135
Potassium 4.2
Chloride 100
Carbon Dioxide 30
BUN 9
Creatinine 0.5 L
Glucose 234 H
Calcium 9.3
Vital Signs:
Vital Signs
Temp Pulse Resp BP Pulse Ox
36.8 C 90 18 130/61 97
09/27/23 08:09 09/27/23 08:13 09/27/23 08:09 09/27/23 08:13 09/27/23 08:09
I&O
09/26/23 09/27/23 09/28/23
06:59 06:59 06:59
Intake Total 156 / 156 1440 / 1440 960 / 960
Balance 156 / 156 1440 / 1440 960 / 960
Review of Systems
-
All other systems: Reviewed and negative
Physical Exam
-
General: Well Developed, Well Nourished, No Apparent Distress, Comfortable and Obese
HEENT: Normocephalic and Atraumatic
Respiratory: Clear to Auscultation; Negative Non Labored Respirations
Cardiac: Regular Rhythm and S1/S2
GI: Soft and Nontender
Skin: Other (L hand in wound dressing )
Neuro: Awake and Alert
Psych: Calm; Negative Intact Judgement/Insight (this patient has NO insight of her conditions)
Data Reviewed
-
Labs: Labs Reviewed by me
--- NOTE | 2023-09-27 11:51 | PTCARENOTE ---
Patient refused L hand dressing change this AM. Pt also refused Levaquin PO this AM. Pt refusing PTT at this time. Dr. Rivera notified. Plan to continue with Heparin gtt at 1700 units/hr. Plan of care ongoing.
[2023-09-27 12:03] VITALS: BP 145/79
[2023-09-27 13:04] LABS: Glucose - Point of Care 331 mg/dl (70-99)
--- NOTE | 2023-09-27 14:09 | VATNOTE ---
Patient continues to refuse IV dressing change, as well as labs being drawn from central line.
[2023-09-27] MEDS: BENADRYL 50 MG PO (14:37)
[2023-09-27 16:26] VITALS: BP 132/82
[2023-09-27 17:43] LABS: Glucose - Point of Care 239 mg/dl (70-99)
[2023-09-27] MEDS: NOVOLOG FLEXPEN-HIGH RESISTANCE 4 UNITS SC (18:22)
[2023-09-27] MEDS: COUMADIN 10 MG PO (18:23)
[2023-09-27 19:57] VITALS: BP 95/68
[2023-09-27] MEDS: SENOKOT-S PO (20:39)
[2023-09-27] MEDS: DESENEX/MITRAZOL/ZEASORB TOPICAL (20:53)
[2023-09-27 21:20] LABS: Glucose - Point of Care 297 mg/dl (70-99)
[2023-09-27] MEDS: MELATONIN 9 MG PO (22:45)
[2023-09-27] MEDS: NOVOLOG FLEXPEN 15 UNITS SC (22:46)
[2023-09-27 23:04] VITALS: BP 134/87
[2023-09-28] MEDS: ROXICODONE 30 MG PO ×5 (02:47→21:11)
[2023-09-28] MEDS: DILAUDID 1 MG IV ×5 (02:48→19:47)
[2023-09-28] MEDS: TYLENOL 650 MG PO ×5 (02:48→19:47)
[2023-09-28 03:01] VITALS: BP 153/96
[2023-09-28] MEDS: ATIVAN 1 MG PO ×3 (04:21→19:44)
[2023-09-28 07:28] LABS: Glucose - Point of Care 341 mg/dl (70-99)
[2023-09-28 07:38] VITALS: BP 148/91
--- NOTE | 2023-09-28 08:10 | W.PN.HOSP.TC ---
Today's Communication/Plan
-
see bold
Assessment / Plan
Assessment / Plan
HPI: 27-year-old female with past medical history of morbid obesity, type 2 diabetes, anxiety, factor V Leyden, PE/DVT on Coumadin, May-Thurner syndrome, and chronic constipation presented with worsening redness, pain of her left second finger.
Patient states that she underwent a left trigger finger release in the hospital at [place] recently, that got infected. 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
and was unable to bend. She reported fevers at night. She has many drug allergies.
A/P:
# Cellulitis of left second finger with concern for flexor tenosynovitis
# History of recent left trigger finger release at [facility] in [place]
No leukocytosis or left shift, no documented fever upon admission
S/p Incision and drainage left index flexor sheath infection with debridement of significant scarring 09/19
Appreciate orthopedic surgery, wound Cx no growth
Appreciate ID input, s/p IV vanc, Flagyl, cefepime. Now on oral Levaquin 500 mg daily through 10/08/2023 (given possibility of tenosynovitis)
Patient complains of itching from antibiotics- oral Benadryl added (she has been refusing to take)
Right IJ placed 09/17, plan to remove prior to discharge
# L thumb numbness/swelling post OR
Expected post op per ortho. No further surgery is needed at this time per ortho
Reassurance provided. Follow up with ortho outpt
# Opioid Use Disorder
Patient has documented history of signing out of facilities AMA when opioids and IV Benadryl are not provided.
She has drug seeking behavior.
Would make every effort to avoid further IV Benadryl unless related to obtaining contrast (known allergy).
Pt was on much higher dose of IV Dilaudid. Since it has been several days post op with good recovery and that pt has opiate use disorder/drug seeking behavior, IV Dilaudid was decreased to 1 mg IV Q4H PRN- cont current dose. Pt has been informed of
this.
Continue oxycodone 30 mg every 4 hours. Ordered Narcan 0.4 mg IV as needed
# Anxiety / Depression
# Poor clinical insight
Continue Wellbutrin, gabapentin, Ativan, melatonin
# LLE DVT
# Factor V Leiden Deficiency
# May-Thurner Syndrome
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
Cont heparin drip for bridging, could change to Lovenox SQ for bridging if pt can be discharged to SNF. I do NOT think she has the insight to do Lovenox bridging at home.
Follow daily INR
# DM-II with Hyperglycemia
Continue home Lantus 40 units twice a day
Pt states that she take NovoLog 25 units AC (adjusted)
She is asking for short acting insulin 15 units at night with her midnight snack, ordered
cover with ISS (high resistance)
Pt refuses diabetic diet
# Opioid-induced constipation
Started on MiraLAX twice a day, senna-S twice a day
Dulcolax ordered PRN per pt request
hold PO iron
# Benign Hypertension
Continue clonidine 0.1 mg 3 times daily
# Hyperlipidemia
Continue statin
�
# Obesity due to excess calories and insulin resistance
Affects all aspects of care
Encourage healthy diet and increased activity with goal of weight loss
DVT prophylaxis� heparin drip bridge back to Coumadin
Full code
Total time spent to see the patient on the floor, examine the patient, review data and lab results, discuss treatment plan with patient, nursing staff around 51 minutes.
Physical Exam
General: Morbidly obese, no acute distress
HEENT: Normocephalic, Atraumatic, EOMI, MMM
Respiratory: Clear to Auscultation bilaterally
Cardiac: Normal S1/S2, Regular Rate and Rhythm
GI: Soft, Nontender, Nondistended, Normal Bowel Sounds
Extremities: No Clubbing, Cyanosis, or Edema
Musculoskeletal:
Left second index finger in flexion, with edema, erythema improved
Neuro: Nonfocal/Grossly Intact
Psych: Intermittently agitated and argumentative
Anticipated Discharge: Within 24 hours
Subjective/Interval History
-
Date of Service: September 28, 2023
Patient complains of swelling of her left index finger. Continues to complain of pain. No fever, no vomiting.
Objective Data
-
Labs:
Laboratory Results
09/28/23
07:56
WBC Pending
Hgb Pending
Hct Pending
Plt Count Pending
PT Pending
INR Pending
Sodium Pending
Potassium Pending
Chloride Pending
Carbon Dioxide Pending
BUN Pending
Creatinine Pending
Glucose Pending
Calcium Pending
Vital Signs:
Vital Signs
Temp Pulse Resp BP Pulse Ox
98.0 F 91 16 148/91 100
09/28/23 07:38 09/28/23 07:38 09/28/23 07:38 09/28/23 07:38 09/28/23 07:38
I&O
09/27/23 09/28/23 09/29/23
06:59 06:59 06:59
Intake Total 1440 / 1440 960 / 960
Balance 1440 / 1440 960 / 960
[2023-09-28 08:11] LABS: Hematocrit 33.5 % (37.0-47.0); Hemoglobin 10.9 g/dL (12.0-16.0); Mean Corp Hgb Conc. 32.5 g/dL (33.0-37.0); Mean Corpuscular Hgb 25.8 pg (27.0-31.0); Mean Corpuscular Volume 79.4 fL (81.0-99.0); Mean Platelet Volume 9.4 fL (7.4-10.4); Platelet Count 242 10^3/uL (130-400); Red Blood Cell Count 4.22 10^6/uL (4.20-5.40); Red Cell Dist. Width 14.3 % (11.5-14.5); White Blood Cell Count 4.8 10^3/uL (4.8-10.8)
[2023-09-28 08:26] LABS: INR 1.28; PT 15.8 Sec (11.4-14.6)
[2023-09-28] MEDS: LANTUS 0.400000000000000022 UNITS SC ×2 (08:34→21:10)
[2023-09-28] MEDS: NOVOLOG FLEXPEN 25 UNITS SC ×3 (08:35→18:11)
[2023-09-28] MEDS: NOVOLOG FLEXPEN-HIGH RESISTANCE 10 UNITS SC ×2 (08:35→18:11)
[2023-09-28] MEDS: MIRALAX PO ×2 (08:37→19:44)
[2023-09-28] MEDS: CATAPRES 0.100000000000000006 MG PO ×3 (08:37→23:00)
[2023-09-28] MEDS: SENOKOT-S 2 TABLET PO (08:38)
[2023-09-28] MEDS: NEURONTIN 900 MG PO ×3 (08:38→23:00)
[2023-09-28] MEDS: LEVAQUIN 500 MG PO (08:39)
[2023-09-28] MEDS: PLAVIX 75 MG PO (08:39)
[2023-09-28] MEDS: WELLBUTRIN XL (24 hour extended release) 150 MG PO (08:39)
[2023-09-28] MEDS: POLYSPORIN OINTMENT 1 APPLIC TOPICAL (08:40)
[2023-09-28] MEDS: FLEXERIL 10 MG PO ×2 (08:43→23:08)
[2023-09-28] MEDS: DESENEX/MITRAZOL/ZEASORB TOPICAL ×2 (08:52→19:45)
[2023-09-28 09:09] LABS: Blood Urea Nitrogen 10 mg/dl (7-17); Calcium 9.1 mg/dl (8.4-10.2); Carbon Dioxide 24 mmol/L (22-30); Chloride 100 mmol/L (98-107); Estimated Creatinine Clearance > 125 ml/min; Glucose 308 mg/dl (70-99); Potassium 4.1 mmol/L (3.5-5.1); Sodium 132 mmol/L (135-145); eGFR > 60.00
[2023-09-28] MEDS: HEPARIN 25000 UNITS/250 ML IV (09:38)
[2023-09-28 11:00] LABS: APTT 111.2 Sec (23.4-35.0)
--- NOTE | 2023-09-28 11:43 | CM ---
Patient still requiring acute level of care. Will make VN aware of Lovenox injections.
Plan: Case management will continue to follow and assist with discharge planning. Patient home with VN when stable.
[2023-09-28 11:44] VITALS: BP 125/75
[2023-09-28 11:55] LABS: Glucose - Point of Care 288 mg/dl (70-99)
[2023-09-28] MEDS: NOVOLOG FLEXPEN-HIGH RESISTANCE 7 UNITS SC (13:18)
--- NOTE | 2023-09-28 14:04 | W.PN.ID1 ---
Date of Service
Date of Service: September 28, 2023
Today's Communication
Continue antibiotics. See below�
Assessment / Plan
Left hand cellulitis
- improved
Suspected tenosynovitis
Recent trigger finger surgery
Multiple abx allergies; (PCN, Keflex, sulfa)
May-Thurner syndrome
DM
Nephrolithiasis
Factor V Leiden mutation, antiphospholipid syndrome
PE/Recurrent DVT s/p IVC filter, hx thrombectomies, stents x 7
Recommendations:
Wound cultures negative to date.
Continue levaquin 500 mg daily through 10/08/2023 (given possibility of tenosynovitis)
Advised upper extremity elevation to minimize swelling.
Local care to the hand wound.
Little more to add from a Infectious Diseases standpoint.
Will follow along with you peripherally.
����������������������������������������������������������
Chief Complaint
-: Other (Left hand infection)
Subjective / Review of Systems
Review of Systems: No Fever
Vital Signs / Physical Exam
Vital Signs
Vital Signs
Temp Pulse Resp BP Pulse Ox
98.8 F 95 17 125/75 98
09/28/23 11:44 09/28/23 11:44 09/28/23 11:44 09/28/23 11:44 09/28/23 13:07
Physical Exam
Constitutional: No Acute Distress, Comfortable and Non-toxic
Pulmonary: Non Labored
Extremities: Other (Mild left second finger edema. Palmar incisional area dressed. No spreading erythema.)
Neurological: Awake and Alert
Psychological: Calm
Objective Data
Lab Data
Lab Results
09/28/23 07:56
09/28/23 07:56
PT 15.8 Sec (11.4-14.6) H 09/28/23 07:56
INR 1.28 09/28/23 07:56
APTT 111.2 Sec (23.4-35.0) H 09/28/23 07:56
Estimated Creat Clear > 125 ml/min 09/28/23 07:56
Lactic Acid 0.9 mmol/L (0.7-2.0) 09/19/23 07:19
C-Reactive Protein 12.20 mg/L (0.0-10.00) H 09/18/23 16:08
Most recent labs reviewed.
Micro Results:
09/20/23 11:30 Wound Culture - Final
Finger - Left No growth
Gram Stain - Final
09/20/23 11:30 Anaerobic Culture - Final
Finger - Left NO ANAEROBES ISOLATED
09/18/23 16:08 Blood Culture - Final
Blood/Venous No Growth - Final Report
Imaging:
09/20/2023 X-ray left hand: No acute fracture or dislocation. Joint spaces are well-maintained. Soft tissues are grossly unremarkable. No convincing radiographic evidence for active osteomyelitis.
[2023-09-28 15:23] VITALS: BP 104/52
[2023-09-28 16:40] LABS: Glucose - Point of Care 322 mg/dl (70-99)
[2023-09-28] MEDS: POLYSPORIN OINTMENT TOPICAL (19:44)
[2023-09-28] MEDS: SENOKOT-S PO (19:45)
[2023-09-28] MEDS: COUMADIN 10 MG PO (19:45)
[2023-09-28 19:54] LABS: Glucose - Point of Care 264 mg/dl (70-99)
[2023-09-28 19:58] VITALS: BP 138/90
[2023-09-28] MEDS: MELATONIN 9 MG PO (21:11)
--- NOTE | 2023-09-28 21:32 | PTCARENOTE ---
pt coming out of room requesting her pain medications all at once at 1915 with heparin gtt pump beeping. this RN restarted hep gtt and educated pt that this RN was still receiving report and getting herself together. pt stating that pain medications
were promised to her at 1930 dt a meeting pt had to attend. this RN re-explained her medications will be brought in when it is appropriate and RN is done report. pt demanding to receive IV Dilaudid with Oxycodone and Tylenol. this RN educated pt
that it is not appropriate to give 2 narcotics at once and will reassess in an hour. pt upset by this and cursing, threatening to pull out her IJ and hep gtt. pt called nursing supervisor soldering and supervisor soldering agreed with this RN about pain medications
being spaced out. pt c/o of L finger swelling and pain multiple times, pt keeps touching the dressing and incision site. this RN educated pt to leave dressing alone. call bowden within reach. plan of care ongoing.
[2023-09-28 22:15] LABS: Glucose - Point of Care 304 mg/dl (70-99)
[2023-09-28] MEDS: NOVOLOG FLEXPEN 15 UNITS SC (23:00)
[2023-09-28 23:32] VITALS: BP 135/81
[2023-09-28 23:58] LABS: APTT 98.4 Sec (23.4-35.0)
[2023-09-29] MEDS: DILAUDID 1 MG IV ×5 (00:02→22:12)
[2023-09-29] MEDS: ROXICODONE 30 MG PO ×4 (01:54→20:39)
[2023-09-29 03:01] VITALS: BP 114/79
[2023-09-29] MEDS: HEPARIN 25000 UNITS/250 ML IV ×2 (04:07→20:36)
[2023-09-29] MEDS: ATIVAN 1 MG PO ×3 (04:38→20:39)
[2023-09-29 07:10] VITALS: BP 154/98
[2023-09-29] MEDS: NEURONTIN 900 MG PO ×2 (08:00→14:56)
[2023-09-29] MEDS: PLAVIX 75 MG PO (08:00)
[2023-09-29] MEDS: WELLBUTRIN XL (24 hour extended release) 150 MG PO (08:00)
[2023-09-29] MEDS: SENOKOT-S 2 TABLET PO ×2 (08:00→20:37)
[2023-09-29] MEDS: MIRALAX PO ×2 (08:01→20:40)
[2023-09-29] MEDS: CATAPRES 0.100000000000000006 MG PO ×3 (08:01→22:12)
[2023-09-29] MEDS: LEVAQUIN 500 MG PO (08:01)
[2023-09-29] MEDS: POLYSPORIN OINTMENT 1 APPLIC TOPICAL ×2 (08:01→20:37)
[2023-09-29 08:03] LABS: Glucose - Point of Care 313 mg/dl (70-99)
[2023-09-29] MEDS: NOVOLOG FLEXPEN 25 UNITS SC ×3 (08:05→17:34)
[2023-09-29] MEDS: DESENEX/MITRAZOL/ZEASORB 1 APPLIC TOPICAL (08:05)
[2023-09-29] MEDS: NOVOLOG FLEXPEN-HIGH RESISTANCE SC (08:06)
[2023-09-29] MEDS: NOVOLOG FLEXPEN-HIGH RESISTANCE 10 UNITS SC (08:15)
[2023-09-29] MEDS: FLEXERIL 10 MG PO ×2 (08:16→22:12)
[2023-09-29 08:41] LABS: INR 1.53; PT 18.3 Sec (11.4-14.6)
[2023-09-29 08:44] LABS: APTT 110.9 Sec (23.4-35.0)
[2023-09-29] MEDS: LANTUS 0.400000000000000022 UNITS SC ×2 (09:09→20:39)
[2023-09-29 11:10] VITALS: BP 152/88
[2023-09-29 11:26] LABS: Glucose - Point of Care 262 mg/dl (70-99)
[2023-09-29] MEDS: NOVOLOG FLEXPEN-HIGH RESISTANCE 7 UNITS SC ×2 (11:39→17:35)
--- NOTE | 2023-09-29 13:25 | W.PN.HOSP.TC ---
Today's Communication/Plan
-
see bold
Assessment / Plan
Assessment / Plan
HPI: 27-year-old female with past medical history of morbid obesity, type 2 diabetes, anxiety, factor V Leyden, PE/DVT on Coumadin, May-Thurner syndrome, and chronic constipation presented with worsening redness, pain of her left second finger.
Patient states that she underwent a left trigger finger release in the hospital at [place] recently, that got infected. 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
and was unable to bend. She reported fevers at night. She has many drug allergies.
A/P:
# Cellulitis of left second finger with concern for flexor tenosynovitis
# History of recent left trigger finger release at [facility] in [place]
No leukocytosis or left shift, no documented fever upon admission
S/p Incision and drainage left index flexor sheath infection with debridement of significant scarring 09/19
Appreciate orthopedic surgery, wound Cx no growth
Appreciate ID input, s/p IV vanc, Flagyl, cefepime. Now on oral Levaquin 500 mg daily through 10/08/2023 (given possibility of tenosynovitis)
Patient complains of itching from antibiotics- oral Benadryl added (she has been refusing to take)
Right IJ placed 09/17, plan to remove prior to discharge
# L thumb numbness/swelling post OR
Expected post op per ortho. No further surgery is needed at this time per ortho
Reassurance provided. Follow up with ortho outpt
# Opioid Use Disorder
Patient has documented history of signing out of facilities AMA when opioids and IV Benadryl are not provided.
She has drug seeking behavior.
Would make every effort to avoid further IV Benadryl unless related to obtaining contrast (known allergy).
Pt was on much higher dose of IV Dilaudid. Since it has been many days post op with good recovery and that pt has opiate use disorder/drug seeking behavior, IV Dilaudid was decreased to 1 mg IV Q4H PRN on 09/26/23.
09/29/23 Further wean IV dilaudid to Q6H prn. Pt has been informed of this.
Continue oxycodone 30 mg every 4 hours. Ordered Narcan 0.4 mg IV as needed
# Anxiety / Depression
# Poor clinical insight
Continue Wellbutrin, gabapentin, Ativan, melatonin
# LLE DVT
# Factor V Leiden Deficiency
# May-Thurner Syndrome
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
Cont heparin drip for bridging, could change to Lovenox SQ for bridging if pt can be discharged to SNF. I do NOT think she has the insight to do Lovenox bridging at home.
Follow daily INR
# DM-II with Hyperglycemia
Continue home Lantus 40 units twice a day
Pt states that she take NovoLog 25 units AC (adjusted)
She is asking for short acting insulin 15 units at night with her midnight snack, ordered
cover with ISS (high resistance)
Pt refuses diabetic diet
# Opioid-induced constipation
Started on MiraLAX twice a day, senna-S twice a day
Dulcolax ordered PRN per pt request
hold PO iron
# Benign Hypertension
Continue clonidine 0.1 mg 3 times daily
# Hyperlipidemia
Continue statin
�
# Obesity due to excess calories and insulin resistance
Affects all aspects of care
Encourage healthy diet and increased activity with goal of weight loss
DVT prophylaxis� heparin drip bridge back to Coumadin
Full code
Total time spent to see the patient on the floor, examine the patient, review data and lab results, discuss treatment plan with patient, nursing staff around 51 minutes.
Physical Exam
General: Morbidly obese, no acute distress
HEENT: Normocephalic, Atraumatic, EOMI, MMM
Respiratory: Clear to Auscultation bilaterally
Cardiac: Normal S1/S2, Regular Rate and Rhythm
GI: Soft, Nontender, Nondistended, Normal Bowel Sounds
Extremities: No Clubbing, Cyanosis, or Edema
Musculoskeletal:
Left second index finger in flexion, with edema, erythema improved
Neuro: Nonfocal/Grossly Intact
Psych: Intermittently agitated and argumentative
Anticipated Discharge: 24 - 48 hours
Subjective/Interval History
-
Date of Service: September 29, 2023
C/o of left 2nd finger pain. No vomiting, no fever.
Objective Data
-
Labs:
Laboratory Results
09/29/23
08:16
PT 18.3 H
INR 1.53
APTT 110.9 H
Vital Signs:
Vital Signs
Temp Pulse Resp BP Pulse Ox
98.6 F 106 16 152/88 98
09/29/23 11:10 09/29/23 11:10 09/29/23 11:10 09/29/23 11:10 09/29/23 11:10
I&O
09/28/23 09/29/23 09/30/23
06:59 06:59 06:59
Intake Total 960 / 960 840 / 840
Balance 960 / 960 840 / 840
[2023-09-29] MEDS: TYLENOL 650 MG PO (14:50)
[2023-09-29 15:00] VITALS: BP 152/118
--- NOTE | 2023-09-29 17:18 | W.PN.UPDATE ---
Update Note
Progress Note Update
Left hand wound looks well
Reiterated that she must do A/P ROM exercises or will have permanent stiffness/scarring
Have F/U with me in about 1 -2 weeks for suture removal
thanks
GGMD
[2023-09-29] MEDS: COUMADIN 15 MG PO (17:34)
[2023-09-29 17:37] LABS: Glucose - Point of Care 254 mg/dl (70-99)
[2023-09-29 19:05] VITALS: BP 155/93
[2023-09-29 20:34] LABS: Glucose - Point of Care 346 mg/dl (70-99)
[2023-09-29] MEDS: DESENEX/MITRAZOL/ZEASORB TOPICAL (20:40)
[2023-09-29 22:12] VITALS: BP 152/83
[2023-09-29] MEDS: MELATONIN 9 MG PO (22:12)
[2023-09-29] MEDS: NOVOLOG FLEXPEN 15 UNITS SC (22:13)
[2023-09-29 22:14] LABS: Glucose - Point of Care 368 mg/dl (70-99)
[2023-09-30] MEDS: ROXICODONE 30 MG PO ×6 (01:03→23:10)
[2023-09-30] MEDS: NEURONTIN 900 MG PO ×4 (01:03→23:10)
[2023-09-30] MEDS: BENADRYL 50 MG PO (01:03)
[2023-09-30 03:30] VITALS: BP 127/76
[2023-09-30] MEDS: ATIVAN 1 MG PO ×3 (03:44→20:23)
[2023-09-30] MEDS: DILAUDID 1 MG IV ×4 (04:14→22:31)
[2023-09-30 05:15] LABS: INR 1.88; PT 21.4 Sec (11.4-14.6)
[2023-09-30 05:18] LABS: APTT 143.9 Sec (23.4-35.0)
[2023-09-30] MEDS: TYLENOL 650 MG PO ×4 (06:09→23:10)
[2023-09-30 07:00] VITALS: BP 128/79
[2023-09-30] MEDS: PLAVIX 75 MG PO (08:18)
[2023-09-30] MEDS: CATAPRES 0.100000000000000006 MG PO ×3 (08:18→22:34)
[2023-09-30] MEDS: LEVAQUIN 500 MG PO (08:18)
[2023-09-30] MEDS: SENOKOT-S 2 TABLET PO (08:18)
[2023-09-30] MEDS: WELLBUTRIN XL (24 hour extended release) 150 MG PO (08:19)
[2023-09-30 08:24] LABS: Glucose - Point of Care 292 mg/dl (70-99)
[2023-09-30] MEDS: MIRALAX PO ×2 (08:26→20:23)
[2023-09-30] MEDS: LANTUS 0.400000000000000022 UNITS SC ×2 (08:27→20:28)
[2023-09-30] MEDS: POLYSPORIN OINTMENT 1 APPLIC TOPICAL ×2 (08:28→20:25)
--- NOTE | 2023-09-30 08:28 | W.PN.HOSP.TC ---
Today's Communication/Plan
-
see bold
Assessment / Plan
Assessment / Plan
HPI: 27-year-old female with past medical history of morbid obesity, type 2 diabetes, anxiety, factor V Leyden, PE/DVT on Coumadin, May-Thurner syndrome, and chronic constipation presented with worsening redness, pain of her left second finger.
Patient states that she underwent a left trigger finger release in the hospital at [place] recently, that got infected. 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
and was unable to bend. She reported fevers at night. She has many drug allergies.
A/P:
# Cellulitis of left second finger with concern for flexor tenosynovitis
# History of recent left trigger finger release at [facility] in [place]
No leukocytosis or left shift, no documented fever upon admission
S/p Incision and drainage left index flexor sheath infection with debridement of significant scarring 09/19
Appreciate orthopedic surgery, wound Cx no growth
Appreciate ID input, s/p IV vanc, Flagyl, cefepime. Now on oral Levaquin 500 mg daily through 10/08/2023 (given possibility of tenosynovitis)
Patient complains of itching from antibiotics- oral Benadryl added (she has been refusing to take)
Right IJ placed 09/17, plan to remove prior to discharge
Ortho rec outpt f/u in 1 week to remove sutures, continue bacitracin
# L thumb numbness/swelling post OR
Expected post op per ortho. No further surgery is needed at this time per ortho
Reassurance provided. Follow up with ortho outpt
# Opioid Use Disorder
Patient has documented history of signing out of facilities AMA when opioids and IV Benadryl are not provided.
She has drug seeking behavior. Would make every effort to avoid further IV Benadryl unless related to obtaining contrast (known allergy).
Pt was on much higher dose of IV Dilaudid. Since it has been many days post op with good recovery and that pt has opiate use disorder/drug seeking behavior, IV Dilaudid was decreased to 1 mg IV Q4H PRN on 09/26/23.
09/29/23 Further wean IV dilaudid to Q6H prn. Pt has been informed of this.
Continue oxycodone 30 mg every 4 hours. Ordered Narcan 0.4 mg IV as needed
# Anxiety / Depression
# Poor clinical insight
Continue Wellbutrin, gabapentin, Ativan, melatonin
# LLE DVT
# Factor V Leiden Deficiency
# May-Thurner Syndrome
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
Cont heparin drip for bridging, could change to Lovenox SQ for bridging if pt can be discharged to SNF. I do NOT think she has the insight to do Lovenox bridging at home.
INR today 1.88. Goal INR 2.5-3.5. Follow daily INR
# DM-II with Hyperglycemia
Continue home Lantus 40 units twice a day
Pt states that she take NovoLog 25 units AC (adjusted)
She is asking for short acting insulin 15 units at night with her midnight snack, ordered
cover with ISS (high resistance)
Pt refuses diabetic diet
# Opioid-induced constipation
Started on MiraLAX twice a day, senna-S twice a day
Dulcolax ordered PRN per pt request
hold PO iron
# Benign Hypertension
Continue clonidine 0.1 mg 3 times daily
# Hyperlipidemia
Continue statin
�
# Obesity due to excess calories and insulin resistance
Affects all aspects of care
Encourage healthy diet and increased activity with goal of weight loss
DVT prophylaxis� heparin drip bridge back to Coumadin
Full code
Total time spent to see the patient on the floor, examine the patient, review data and lab results, discuss treatment plan with patient, nursing staff around 50 minutes.
Physical Exam
General: Morbidly obese, no acute distress
HEENT: Normocephalic, Atraumatic, EOMI, MMM
Respiratory: Clear to Auscultation bilaterally
Cardiac: Normal S1/S2, Regular Rate and Rhythm
GI: Soft, Nontender, Nondistended, Normal Bowel Sounds
Extremities: No Clubbing, Cyanosis, or Edema
Musculoskeletal:
Left second index finger in flexion, with edema, erythema improved
Neuro: Nonfocal/Grossly Intact
Psych: Intermittently agitated and argumentative
Anticipated Discharge: 24 - 48 hours
Subjective/Interval History
-
Date of Service: September 30, 2023
Continues to complain of pain. Reports nausea. No fever, no vomiting.
Objective Data
-
Labs:
Laboratory Results
09/30/23 09/30/23
04:30 12:30
PT 21.4 H
INR 1.88
APTT 143.9 H Pending
Vital Signs:
Vital Signs
Temp Pulse Resp BP Pulse Ox
98.3 F 86 19 128/79 98
09/30/23 07:00 09/30/23 08:18 09/30/23 07:00 09/30/23 08:18 09/30/23 07:00
I&O
09/29/23 09/30/23 10/01/23
06:59 06:59 06:59
Intake Total 840 / 840 2700 / 2700
Balance 840 / 840 2700 / 2700
[2023-09-30] MEDS: NOVOLOG FLEXPEN 25 UNITS SC ×2 (08:29→14:30)
[2023-09-30] MEDS: NOVOLOG FLEXPEN-HIGH RESISTANCE 7 UNITS SC ×2 (08:30→14:30)
[2023-09-30] MEDS: DESENEX/MITRAZOL/ZEASORB TOPICAL (08:33)
[2023-09-30] MEDS: FLEXERIL 10 MG PO ×3 (10:01→22:30)
[2023-09-30 11:00] VITALS: BP 123/80
[2023-09-30 12:32] LABS: APTT 85.1 Sec (23.4-35.0)
[2023-09-30 14:27] LABS: Glucose - Point of Care 289 mg/dl (70-99)
[2023-09-30 15:00] VITALS: BP 118/100
[2023-09-30] MEDS: HEPARIN 25000 UNITS/250 ML IV (16:22)
[2023-09-30] MEDS: COUMADIN 15 MG PO (17:55)
[2023-09-30 18:35] LABS: Glucose - Point of Care 375 mg/dl (70-99)
[2023-09-30] MEDS: NOVOLOG FLEXPEN 32 UNITS SC (18:36)
[2023-09-30] MEDS: NOVOLOG FLEXPEN-HIGH RESISTANCE 12 UNITS SC (18:37)
[2023-09-30 19:32] LABS: APTT 92.4 Sec (23.4-35.0)
--- NOTE | 2023-09-30 19:53 | PTCARENOTE ---
1318 Pt refused to go to X-ray for Abdominal X-ray after she reported she was having abdominal pain and 'kidney/bladder stone'. Dr. Rock made aware. Explain to pt importance of having test done.
[2023-09-30 20:14] VITALS: BP 105/70
[2023-09-30] MEDS: DESENEX/MITRAZOL/ZEASORB 1 APPLIC TOPICAL (20:24)
[2023-09-30] MEDS: SENOKOT-S PO (20:24)
[2023-09-30 20:28] LABS: Glucose - Point of Care 329 mg/dl (70-99)
[2023-09-30 20:32] LABS: Urine Albumin 1+ (Neg - Trace); Urine Bilirubin Negative (Negative); Urine Character Clear (Clear); Urine Color Yellow; Urine Glucose 3+ (Negative); Urine Ketone Negative (Negative); Urine Leukocyte Trace (Negative); Urine Nitrite Negative (Negative); Urine Occult Blood Negative (Negative); Urine Specific Gravity 1.015 (<1.030); Urine Urobilinogen Negative (Neg - 1+); Urine pH 6.5 (5.0-9.0)
[2023-09-30 20:39] LABS: Urine Red Blood Cell 0-2 /HPF (0-2); Urine Squamous Cell 0-2 /LPF (Few)
[2023-09-30] MEDS: MELATONIN 9 MG PO (22:31)
[2023-09-30] MEDS: NOVOLOG FLEXPEN 22 UNITS SC (22:32)
[2023-09-30 22:34] LABS: Glucose - Point of Care 285 mg/dl (70-99)
[2023-09-30] MEDS: FLUSH (NSS) 2 FLUSH IV (22:36)
[2023-09-30 22:37] VITALS: BP 150/97
[2023-10-01] MEDS: TYLENOL 650 MG PO ×4 (03:11→21:42)
[2023-10-01] MEDS: ROXICODONE 30 MG PO ×5 (03:11→21:42)
[2023-10-01] MEDS: ATIVAN 1 MG PO ×3 (03:11→19:39)
[2023-10-01 03:47] VITALS: BP 106/65
[2023-10-01] MEDS: ZOFRAN 4 MG IV ×2 (06:00→23:03)
[2023-10-01] MEDS: DILAUDID 1 MG IV ×5 (06:00→20:50)
[2023-10-01] MEDS: FLUSH (NSS) 2 FLUSH IV (06:01)
[2023-10-01 06:40] LABS: % Basophils 0.8 % (0-2); % Eosinophils 8.7 % (0-6); % Immature Granulocytes 0.4 % (0-0.5); % Lymphocytes 26.6 % (20.5-51.1); % Monocytes 6.9 % (1.7-9.3); % Neutrophils 56.6 % (42.2-75.2); Absolute Eosinophils 0.4 10^3/uL (0-0.7); Absolute Lymphocytes 1.3 10^3/uL (1.2-3.4); Absolute Monocytes 0.4 10^3/uL (0.1-0.6); Absolute Neutrophils 2.9 10^3/uL (1.4-6.5); Hematocrit 33.2 % (37.0-47.0); Hemoglobin 11.1 g/dL (12.0-16.0); Mean Corp Hgb Conc. 33.4 g/dL (33.0-37.0); Mean Corpuscular Hgb 25.7 pg (27.0-31.0); Mean Corpuscular Volume 76.9 fL (81.0-99.0); Mean Platelet Volume 9.6 fL (7.4-10.4); Nucleated Red Blood Cells % 0 %; Platelet Count 267 10^3/uL (130-400); Red Blood Cell Count 4.32 10^6/uL (4.20-5.40); Red Cell Dist. Width 13.9 % (11.5-14.5)
[2023-10-01 06:46] LABS: INR 2.36; PT 26.1 Sec (11.4-14.6)
[2023-10-01 06:49] LABS: APTT 141.8 Sec (23.4-35.0)
[2023-10-01 07:00] VITALS: BP 129/73
[2023-10-01 07:07] LABS: Blood Urea Nitrogen 11 mg/dl (7-17); Calcium 9.2 mg/dl (8.4-10.2); Carbon Dioxide 27 mmol/L (22-30); Chloride 101 mmol/L (98-107); Estimated Creatinine Clearance > 125 ml/min; Potassium 4.5 mmol/L (3.5-5.1); Sodium 133 mmol/L (135-145); eGFR > 60.00
[2023-10-01 07:29] LABS: Glucose 336 mg/dl (70-99)
[2023-10-01] MEDS: MIRALAX PO ×2 (08:47→20:40)
[2023-10-01 08:54] LABS: Glucose - Point of Care 372 mg/dl (70-99)
[2023-10-01] MEDS: HEPARIN 25000 UNITS/250 ML IV (08:55)
--- NOTE | 2023-10-01 09:00 | W.PN.HOSP.TC ---
Addendum entered and electronically signed by Alan Rock MD 10/01/23 18:05:
Correction, INR 2.36 today. Goal INR 2.5�3.5.
Will give Coumadin 15 mg tonight.
Original Note:
Today's Communication/Plan
-
Check head and C-spine CT
Check EKG
Check troponin
Assessment / Plan
Assessment / Plan
HPI: 27-year-old female with past medical history of morbid obesity, type 2 diabetes, anxiety, factor V Leyden, PE/DVT on Coumadin, May-Thurner syndrome, and chronic constipation presented with worsening redness, pain of her left second finger.
Patient states that she underwent a left trigger finger release in the hospital at [place] recently, that got infected. 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
and was unable to bend. She reported fevers at night. She has many drug allergies.
A/P:
# Cellulitis of left second finger with concern for flexor tenosynovitis
# History of recent left trigger finger release at [facility] in [place]
No leukocytosis or left shift, no documented fever upon admission
S/p Incision and drainage left index flexor sheath infection with debridement of significant scarring 09/19
Appreciate orthopedic surgery, wound Cx no growth
Appreciate ID input, s/p IV vanc, Flagyl, cefepime. Now on oral Levaquin 500 mg daily through 10/08/2023 (given possibility of tenosynovitis)
Patient complains of itching from antibiotics- oral Benadryl added (she has been refusing to take)
Right IJ placed 09/17, plan to remove prior to discharge
Ortho rec outpt f/u in 1 week to remove sutures, continue bacitracin
09/29 Fever of 100.4 at 8pm, she has no leukocytosis or left shift, will ask ID to comment
# L thumb numbness/swelling post OR
Expected post op per ortho. No further surgery is needed at this time per ortho
Reassurance provided. Follow up with ortho outpt
#Headache
#Spine pain
States that IV Dilaudid is not touching her pain
Check head CT and C-spine CT urgent
#Chest pain
Check troponin, check EKG
# Opioid Use Disorder
Patient has documented history of signing out of facilities AMA when opioids and IV Benadryl are not provided.
She has drug seeking behavior. Would make every effort to avoid further IV Benadryl unless related to obtaining contrast (known allergy).
Pt was on much higher dose of IV Dilaudid. Since it has been many days post op with good recovery and that pt has opiate use disorder/drug seeking behavior, IV Dilaudid was decreased to 1 mg IV Q4H PRN on 09/26/23.
09/29/23 Further wean IV dilaudid to Q6H prn. Pt has been informed of this.
Continue oxycodone 30 mg every 4 hours. Ordered Narcan 0.4 mg IV as needed
# Anxiety / Depression
# Poor clinical insight
Continue Wellbutrin, gabapentin, Ativan, melatonin
# LLE DVT
# Factor V Leiden Deficiency
# May-Thurner Syndrome
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
Cont heparin drip for bridging, could change to Lovenox SQ for bridging if pt can be discharged to SNF. I do NOT think she has the insight to do Lovenox bridging at home.
INR today 1.88. Goal INR 2.5-3.5. Follow daily INR
# DM-II with Hyperglycemia
Blood sugars continue to be high despite increasing insulin because she refuses diabetic diet
Cover with ISS (high resistance)
# Opioid-induced constipation
Started on MiraLAX twice a day, senna-S twice a day
Dulcolax ordered PRN per pt request
hold PO iron
# Benign Hypertension
Continue clonidine 0.1 mg 3 times daily
# Hyperlipidemia
Continue statin
�
# Obesity due to excess calories and insulin resistance
Affects all aspects of care
Encourage healthy diet and increased activity with goal of weight loss
DVT prophylaxis� heparin drip bridge back to Coumadin
Full code
Total time spent to see the patient on the floor, examine the patient, review data and lab results, discuss treatment plan with patient, nursing staff around 55 minutes.
Physical Exam
General: Morbidly obese, no acute distress
HEENT: Normocephalic, Atraumatic, EOMI, MMM
Respiratory: Clear to Auscultation bilaterally
Cardiac: Normal S1/S2, Regular Rate and Rhythm
GI: Soft, Nontender, Nondistended, Normal Bowel Sounds
Extremities: No Clubbing, Cyanosis, or Edema
Musculoskeletal:
Left second index finger in flexion, with edema, erythema improved
Neuro: Nonfocal/Grossly Intact
Psych: Intermittently agitated and argumentative
Anticipated Discharge: Within 24 hours
Subjective/Interval History
-
Date of Service: October 01, 2023
Patient has a myriad of complaints. She complains of headache, states she is worried about a brain bleed. She complains of pain traveling down her spine. She complains of chest pain. +fever.
Objective Data
-
Labs:
Laboratory Results
10/01/23 10/01/23
06:28 15:00
WBC 5.0
Hgb 11.1 L
Hct 33.2 L
Plt Count 267
PT 26.1 H
INR 2.36
APTT 141.8 H Pending
Sodium 133 L
Potassium 4.5
Chloride 101
Carbon Dioxide 27
BUN 11
Creatinine 0.6
Glucose 336 H
Calcium 9.2
Vital Signs:
Vital Signs
Temp Pulse Resp BP Pulse Ox
98.1 F 89 18 129/73 100
10/01/23 07:00 10/01/23 07:00 10/01/23 07:00 10/01/23 07:00 10/01/23 07:00
I&O
09/30/23 10/01/23 10/02/23
06:59 06:59 06:59
Intake Total 2700 / 2700 720 / 720
Output Total 500 / 500
Balance 2700 / 2700 220 / 220
[2023-10-01] MEDS: LANTUS 0.400000000000000022 UNITS SC ×2 (09:03→21:27)
[2023-10-01] MEDS: NEURONTIN 900 MG PO ×3 (09:04→23:02)
[2023-10-01] MEDS: FLEXERIL 10 MG PO ×3 (09:04→23:02)
[2023-10-01] MEDS: LEVAQUIN PO ×2 (09:05→09:18)
[2023-10-01] MEDS: WELLBUTRIN XL (24 hour extended release) 150 MG PO (09:05)
[2023-10-01] MEDS: CATAPRES 0.100000000000000006 MG PO ×3 (09:05→23:03)
[2023-10-01] MEDS: SENOKOT-S PO ×3 (09:05→20:40)
[2023-10-01] MEDS: PLAVIX 75 MG PO (09:05)
[2023-10-01] MEDS: POLYSPORIN OINTMENT 1 APPLIC TOPICAL ×2 (09:06→21:27)
[2023-10-01] MEDS: DESENEX/MITRAZOL/ZEASORB TOPICAL ×2 (09:06→20:40)
[2023-10-01] MEDS: NOVOLOG FLEXPEN SC ×2 (09:06→13:14)
[2023-10-01] MEDS: NOVOLOG FLEXPEN-HIGH RESISTANCE 12 UNITS SC (09:07)
[2023-10-01] MEDS: NOVOLOG FLEXPEN 32 UNITS SC ×2 (09:10→18:31)
--- NOTE | 2023-10-01 09:33 | CM ---
Reviewed chart, patient still suffering with pain, being treated. Still requiring acute level of care.
Plan: Case management will continue to follow and assist with discharge planning. Home when stable.
[2023-10-01 11:00] VITALS: BP 114/93
[2023-10-01 12:24] LABS: Glucose - Point of Care 137 mg/dl (70-99)
[2023-10-01] MEDS: NOVOLOG FLEXPEN-HIGH RESISTANCE SC (13:15)
[2023-10-01 15:00] VITALS: BP 133/80
[2023-10-01 15:17] LABS: Glucose - Point of Care 132 mg/dl (70-99)
[2023-10-01 16:16] LABS: APTT 78.9 Sec (23.4-35.0)
--- NOTE | 2023-10-01 17:04 | PTCARENOTE ---
Patient called RN saying that she had a 'terrible headache' and pain radiating down her spine. Pt states concern about having a brain bleed as she has experienced one in the past. Vitals are stable at this time, and blood glucose 137. Pt given
tylenol and PRN pain medication. Do. made aware. Head CT and C spine CT ordered. Pt then complained of chest pain and stated that '1mg of dilaudid is not enough to hold me over for six hours'. EKG was ordered, but pt refused it to be done.
Troponins were drawn my IV team. Awaiting scans to be done at this time.
[2023-10-01 17:22] LABS: Glucose - Point of Care 192 mg/dl (70-99)
[2023-10-01 17:31] LABS: Troponin I < 0.012 ng/ml
[2023-10-01] MEDS: NOVOLOG FLEXPEN-HIGH RESISTANCE 2 UNITS SC (18:31)
[2023-10-01 19:54] VITALS: BP 143/80
[2023-10-01 21:27] LABS: Glucose - Point of Care 297 mg/dl (70-99)
[2023-10-01] MEDS: NOVOLOG FLEXPEN 22 UNITS SC (21:28)
[2023-10-01 22:15] LABS: APTT 64.4 Sec (23.4-35.0)
--- NOTE | 2023-10-01 22:39 | PTCARENOTE ---
Pt continues to c/o head/neck/spine pain and dizziness/nausea when turning head to the left. Refused to go to CT scan unless she received additional dilaudid. Discussed with maria eugenia MARIEE and pt med with dilaudid and did go to CT. Pt very upset stating
she thinks something is very wrong with her and wants to be transferred to [place]. Maria Eugenia MARIEE aware. Results of CT given to pt and reassurance given. Assessment as charted.
[2023-10-01] MEDS: MELATONIN 9 MG PO (23:02)
[2023-10-01 23:03] VITALS: BP 133/63
[2023-10-01] MEDS: HEPARIN 4000 UNITS IV (23:03)
[2023-10-02] MEDS: DILAUDID 1 MG IV ×2 (00:28→06:30)
[2023-10-02] MEDS: ROXICODONE 30 MG PO ×3 (02:05→12:28)
[2023-10-02] MEDS: TYLENOL 650 MG PO ×3 (02:06→12:32)
[2023-10-02] MEDS: ATIVAN 1 MG PO ×2 (04:28→12:29)
[2023-10-02 04:31] VITALS: BP 140/85
[2023-10-02 05:17] LABS: % Eosinophils 8.6 % (0-6); % Immature Granulocytes 0.2 % (0-0.5); % Lymphocytes 29.3 % (20.5-51.1); % Monocytes 6.9 % (1.7-9.3); Absolute Eosinophils 0.4 10^3/uL (0-0.7); Absolute Lymphocytes 1.2 10^3/uL (1.2-3.4); Absolute Monocytes 0.3 10^3/uL (0.1-0.6); Absolute Neutrophils 2.3 10^3/uL (1.4-6.5); Hematocrit 30.5 % (37.0-47.0); Hemoglobin 10.5 g/dL (12.0-16.0); Mean Corp Hgb Conc. 34.4 g/dL (33.0-37.0); Mean Corpuscular Hgb 26.3 pg (27.0-31.0); Mean Corpuscular Volume 76.4 fL (81.0-99.0); Mean Platelet Volume 9.2 fL (7.4-10.4); Nucleated Red Blood Cells % 0 %; Platelet Count 266 10^3/uL (130-400); Red Blood Cell Count 3.99 10^6/uL (4.20-5.40); Red Cell Dist. Width 13.9 % (11.5-14.5); White Blood Cell Count 4.2 10^3/uL (4.8-10.8)
[2023-10-02 05:33] LABS: INR 2.06; PT 23.4 Sec (11.4-14.6)
[2023-10-02 05:36] LABS: APTT 144.3 Sec (23.4-35.0)
[2023-10-02 06:35] LABS: Blood Urea Nitrogen 12 mg/dl (7-17); Calcium 8.3 mg/dl (8.4-10.2); Carbon Dioxide 24 mmol/L (22-30); Chloride 104 mmol/L (98-107); Estimated Creatinine Clearance > 125 ml/min; Glucose 260 mg/dl (70-99); Potassium 4.1 mmol/L (3.5-5.1); Sodium 132 mmol/L (135-145); eGFR > 60.00
[2023-10-02 07:30] VITALS: BP 140/75
[2023-10-02] MEDS: PLAVIX 75 MG PO (08:08)
[2023-10-02] MEDS: WELLBUTRIN XL (24 hour extended release) 150 MG PO (08:09)
[2023-10-02] MEDS: NEURONTIN 900 MG PO (08:09)
[2023-10-02] MEDS: LEVAQUIN PO ×2 (08:09→08:31)
[2023-10-02 08:16] LABS: Glucose - Point of Care 335 mg/dl (70-99)
[2023-10-02] MEDS: CATAPRES 0.100000000000000006 MG PO (08:16)
[2023-10-02] MEDS: ZOFRAN 4 MG IV (08:19)
[2023-10-02] MEDS: POLYSPORIN OINTMENT 1 APPLIC TOPICAL (08:19)
[2023-10-02] MEDS: DESENEX/MITRAZOL/ZEASORB TOPICAL (08:20)
[2023-10-02] MEDS: LANTUS 0.400000000000000022 UNITS SC (08:20)
[2023-10-02] MEDS: MIRALAX PO (08:20)
[2023-10-02] MEDS: SENOKOT-S PO (08:21)
[2023-10-02] MEDS: NOVOLOG FLEXPEN 32 UNITS SC (08:21)
[2023-10-02] MEDS: NOVOLOG FLEXPEN-HIGH RESISTANCE SC ×3 (08:22→12:32)
--- NOTE | 2023-10-02 08:26 | W.PN.HOSP.TC ---
Addendum entered and electronically signed by Alan Rokc MD 10/02/23 12:06:
Notified by nursing staff the patient refused her Coumadin 15 mg this morning as well.
It is futile keeping the patient here when she refuses the medications that she needs, while constantly requesting more IV Dilaudid.
Discontinue IV Dilaudid, patient and father have been informed of the discharge.
Will not send any prescriptions for her oxycodone 30 mg that she takes every 4 hours at home, or Ativan 1 mg every 8 hours that she takes at home.
She can continue what she has, and follow-up with the doctor that prescribed it for her.
Father is in agreement with the plan.
Original Note:
Today's Communication/Plan
-
Cleared by neurology for discharge
Discharge today, patient informed
Assessment / Plan
Assessment / Plan
HPI: 27-year-old female with past medical history of morbid obesity, type 2 diabetes, anxiety, factor V Leyden, PE/DVT on Coumadin, May-Thurner syndrome, and chronic constipation presented with worsening redness, pain of her left second finger.
Patient states that she underwent a left trigger finger release in the hospital at [place] recently, that got infected. 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
and was unable to bend. She reported fevers at night. She has many drug allergies.
A/P:
# Cellulitis of left second finger with concern for flexor tenosynovitis
# History of recent left trigger finger release at [facility] in [place]
No leukocytosis or left shift, no documented fever upon admission
S/p Incision and drainage left index flexor sheath infection with debridement of significant scarring 09/19
Appreciate orthopedic surgery, wound Cx no growth
Appreciate ID input, s/p IV vanc, Flagyl, cefepime. Now on oral Levaquin 500 mg daily through 10/08/2023 (given possibility of tenosynovitis)
Patient complains of itching from antibiotics- oral Benadryl added (she has been refusing to take)
Right IJ placed 09/17, plan to remove prior to discharge
Ortho rec outpt f/u in 1 week to remove sutures, continue bacitracin
09/29 Fever of 100.4 at 8pm, she has no leukocytosis or left shift
Fever resolved
# LLE DVT
# Factor V Leiden Deficiency
# May-Thurner Syndrome
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
Cont heparin drip for bridging, could change to Lovenox SQ for bridging if pt can be discharged to SNF. I do NOT think she has the insight to do Lovenox bridging at home.
09/30 INR 2.36, nursing staff documented pt refused her coumadin 15 mg at 6:31pm
10/01 INR 2.06, ordered her coumadin 15 mg stat
Since it was documented she refused her coumadin on 09/30, informed her she will be discharged today
Discharge on coumadin 10 mg daily
#Headache
#Spine pain
#Previous left eye injury
States that IV Dilaudid is not touching her pain
Head CT negative for acute bleed, and C-spine CT negative for any osseous abnormality
Appreciate neurology input, she has signs of a previous eye injury on the left eye but her neurologic exam is normal.
No indications for MRI with a normal neuro exam per neuro
Neurology recommends minimizing opioid medications, follow-up with ophthalmology in the office
# Opioid Use Disorder
Patient has documented history of signing out of facilities AMA when opioids and IV Benadryl are not provided.
She has drug seeking behavior. Would make every effort to avoid further IV Benadryl unless related to obtaining contrast (known allergy).
Pt was on much higher dose of IV Dilaudid. Since it has been many days post op with good recovery and that pt has opiate use disorder/drug seeking behavior, IV Dilaudid was decreased to 1 mg IV Q4H PRN on 09/26/23.
4/23/24 Further wean IV dilaudid to Q6H prn. Pt has been informed of this.
Continue oxycodone 30 mg every 4 hours. Ordered Narcan 0.4 mg IV as needed
# L thumb numbness/swelling post OR
Expected post op per ortho. No further surgery is needed at this time per ortho
Reassurance provided. Follow up with ortho outpt
#Chest pain
Resolved, troponin negative, EKG nonischemic
# Anxiety / Depression
# Poor clinical insight
Continue Wellbutrin, gabapentin, Ativan, melatonin
# DM-II with Hyperglycemia
Blood sugars continue to be high despite increasing insulin because she refuses diabetic diet
Cover with ISS (high resistance)
# Opioid-induced constipation
Started on MiraLAX twice a day, senna-S twice a day
Dulcolax ordered PRN per pt request
hold PO iron
# Benign Hypertension
Continue clonidine 0.1 mg 3 times daily
# Hyperlipidemia
Continue statin
�
# Obesity due to excess calories and insulin resistance
Affects all aspects of care
Encourage healthy diet and increased activity with goal of weight loss
DVT prophylaxis� heparin drip bridge back to Coumadin
Full code
Total time spent to see the patient on the floor, examine the patient, review data and lab results, discuss treatment plan with patient, nursing staff around 53 minutes.
Physical Exam
General: Morbidly obese, no acute distress
HEENT: Normocephalic, Atraumatic, EOMI, MMM
Respiratory: Clear to Auscultation bilaterally
Cardiac: Normal S1/S2, Regular Rate and Rhythm
GI: Soft, Nontender, Nondistended, Normal Bowel Sounds
Extremities: No Clubbing, Cyanosis, or Edema
Musculoskeletal:
Left second index finger in flexion, with edema, erythema improved
Neuro: Nonfocal/Grossly Intact
Psych: Intermittently agitated and argumentative
Anticipated Discharge: Today
Subjective/Interval History
-
Date of Service: October 02, 2023
Continues to complain of headache. Head CT negative for bleed. Reports chest pain resolved. Denies abdominal pain. Continues to have left hand pain. No fever, no vomiting.
Objective Data
-
Labs:
Laboratory Results
10/01/23 10/02/23 10/02/23
21:57 05:09 05:10
WBC 4.2 L
Hgb 10.5 L
Hct 30.5 L
Plt Count 266
PT 23.4 H
INR 2.06
APTT 64.4 H 144.3 H
Sodium 132 L
Potassium 4.1
Chloride 104
Carbon Dioxide 24
BUN 12
Creatinine 0.5 L
Glucose 260 H
Calcium 8.3 L
Vital Signs:
Vital Signs
Temp Pulse Resp BP Pulse Ox
98.1 F 92 18 140/85 97
10/02/23 04:31 10/02/23 04:31 10/02/23 04:31 10/02/23 04:31 10/02/23 04:31
I&O
10/01/23 10/02/23 10/03/23
06:59 06:59 06:59
Intake Total 720 / 720 1460 / 1460
Output Total 500 / 500
Balance 220 / 220 1460 / 1460
--- NOTE | 2023-10-02 10:46 | W.DCSUMMARY ---
Discharge Summary
Discharge Data
Date of Admission: 09/18/23
Date of Discharge: 10/02/23
-
Pending Results: No
Hospital Course
Discharge diagnosis:
Left second finger cellulitis with concern for flexor tenosynovitis status incision and drainage
History of recent left trigger finger release at [facility] in [place]
Factor V Leyden deficiency
May Thurner syndrome
Chronic left lower extremity DVT status post IVC filter placement
Medication noncompliance
Headache
History of left eye injury
Opioid abuse with opioid use disorder and opioid dependency
Left thumb numbness/swelling postoperatively
Noncardiac chest pain
Uncontrolled type 2 diabetes with noncompliance to diabetic diet
Borderline personality disorder
Adult deficit hyperactive disorder
Anxiety/depression
Benign essential hypertension
Hyperlipidemia
Morbid obesity
Procedures:
09/20/23
Incision and drainage left index flexor sheath
infection with debridement of significant scarring about the A1
mauro region. Debridement was performed with combination of
scissors and 15 blade. This was an excisional debridement.
Head CT: No acute intracranial abnormality.
Cspine CT: No CT evidence for an acute osseous abnormality of the cervical spine.
Hospital course:
27-year-old female with a past medical history of ADHD, borderline personality disorder, opioid abuse with opioid use disorder and dependency, morbid obesity, type 2 diabetes, anxiety, factor V Leyden, PE/DVT on Coumadin, May-Thurner syndrome, and
chronic constipation who was admitted with cellulitis of her left index finger status post recent surgery at [facility] for trigger finger release. When seen in the ER, patient was severely agitated. She was using foul language with the
nurses, and requesting more IV Dilaudid with IV Benadryl.
Patient was treated with IV vancomycin and IV Flagyl. She reports that she has an extremely high pain tolerance, and showed me that at [facility], she was given Dilaudid 3 mg IV every 3 hours in addition to oxycodone 30 mg every 4 hours. She
was ordered Dilaudid 2 mg IV every 3 hours here in addition to oxycodone 30 mg every 4 hours. She was also ordered IV Narcan as needed. When asked to sign consent to obtain her records from [facility], she refused to give consent.
She was seen in conjunction with orthopedic surgery, and underwent I&D of her left flexor sheath tendon. She was seen in conjunction with ID, cultures were negative. ID recommends transitioning to Levaquin through 10/08/2023 for possible flexor
tenosynovitis.
About 1 week postoperatively, her IV Dilaudid was weaned. She was very unhappy with the wean, stating she is going into withdrawal. She was also continued on oxycodone 30 mg every 4 hours.
Patient's hospital course was complicated by various pain complaints in order to get more IV Dilaudid.
She complained of severe headache and spine pain, concerning for a brain bleed. Head CT was negative for brain bleed, C-spine CT was also negative. Patient was seen in conjunction with neurology. Neurology reports she had a normal neurologic
exam, brain MRI is not needed. Neurology recommends Tylenol as needed for headache, and follow-up with her usual sales market leader in the office.
It was discussed with her that we need to continue weaning her IV Dilaudid since she cannot be on it at home. Her IV Dilaudid was weaned to 1 mg every 6 hours as needed. She is continued on her previous dose of oxycodone 30 mg every 4 hours as
needed.
She has factor V Leyden deficiency, and was on a heparin drip to bridge to Coumadin. Her goal INR is 2.5�3.5. Her INR was 2.36 on 10/01/2023. Nursing staff documented that she refused her Coumadin 15 mg at 6:31 PM that evening. She was ordered
another dose of Coumadin on 10/02/2023 in the morning, and she refused that dose as well. It is futile keeping the patient here when she refuses the medications that she needs, while requesting more IV Dilaudid. I personally spoke to her father
Johnny who is well aware of patient's opioid abuse and dependency. Her father reports that she goes from hospital to hospital to get IV Dilaudid and IV Benadryl. Her father states that she was supposed to come to [facility] to be weaned off
of opioids. Her father also reports that she was evaluated at both [facility] and [place] for surgery, and they declined to operate on her left index finger. I recommended to him that she goes to [facility] to receive psychiatric treatment.
Disposition: Home self-care
Discharge planning: Required 60 minutes
Discharge Plan
-
Patient Disposition: Home (Routine Discharge)
Discharge Diagnosis/Procedures: Left second finger cellulitis/flexor tenosynovitis status post incision and drainage of Left index flexor sheath collection by ortho, headache, chest pain, opioid abuse syndrome with dependency, morbid obesity, type 2
diabetes, diet noncompliance
Condition: Fair
Diet: As tolerated and Diabetic, Carb Controlled
Activity: As tolerated
Driving Restrictions: Not until seen by your Dr
Activity Restrictions/Additional Instructions:
Follow-up with orthopedic surgery on the week of 10/05/2023 for suture removal.
Continue left hand range of motion exercises, or you will develop scarring and stiffness.
Follow-up with your previous sales market leader in the office for your left eye injury.
Minimize opioid use. Follow-up with your primary care doctor 1 week.
Referrals:
Jose Alejandro Fox DO [Family Provider] - in less than 1 week
Syed Howard MD [Active] - in three to four days
Additional Discharge Medication Instructions: Continue Levaquin 500 mg daily through 10/08/2023
Prescriptions:
New
polyethylene glycol 3350 [HealthyLax] 17 gram Powder In Packet
17 g PO BID 30 Days Qty: 60 0RF
insulin aspart U-100 100 unit/mL (3 mL) Insulin Pen
22 unit SC HS Qty: 0 0RF
insulin aspart U-100 100 unit/mL (3 mL) Insulin Pen
32 unit SC AC Qty: 0 0RF
Polysporin 500-10,000 unit/gram Ointment In Packet
1 applic topical BID 14 Days Qty: 1 0RF
levofloxacin 500 mg Tablet
500 mg PO DAILY 7 Days Qty: 7 0RF
Continued
clonidine HCl 0.1 MG tablet
0.1 mg PO TID
gabapentin 300 MG capsule
900 mg PO Q8H
cyclobenzaprine 10 mg tablet
10 mg PO TIDPRN PRN (Reason: muscle spasms)
clopidogrel 75 mg tablet
75 mg PO DAILY
lorazepam 1 mg tablet
1 mg PO Q8H
Patient Comments:
09/18/2023: last filled 08/18/23, 9 tabs for 3 days from [id number]
bupropion HCl 150 mg tablet extended release 24 hr
150 mg PO DAILY
Dulera 200-5 mcg/actuation Hfa Aerosol Inhaler
2 puff INHALATION R BID PRN (Reason: Lung/Breathing Issues)
insulin aspart U-100 100 unit/mL (3 mL) Insulin Pen
0 - 32 sliding scale dose SC AC
insulin glargine [Lantus Solostar U-100 Insulin] 100 unit/mL (3 mL) Insulin Pen
40 unit SC BID
atorvastatin 20 mg tablet
20 mg PO DAILY
oxycodone 15 mg tablet
30 mg PO Q8H PRN (Reason: moderate pain)
Patient Comments:
09/18/2023: last filled 08/26/23, 48 tabs for 4 days from [facility][id number]
melatonin 3 mg Tablet
9 mg PO HS
ferrous sulfate 325 mg (65 mg iron) Tablet
325 mg PO BID
Changed
warfarin 5 mg tablet
10 mg PO QPM Qty: 30 0RF
Discharge Orders:
Discharge Patient (As Directed); Ordered 10/02/23
Ordered By: Alan Rock
Discharge Date and Time
Discharge Date/Time: 10/02/23 14:18
Print Language: FRISIAN
[2023-10-02] MEDS: FLEXERIL 10 MG PO (11:23)
[2023-10-02 11:35] LABS: Glucose - Point of Care 136 mg/dl (70-99)
[2023-10-02 11:45] VITALS: BP 134/74
--- NOTE | 2023-10-02 11:52 | CON.NEURO4 ---
Consultation - Neurology 4
-
CONSULTING PHYSICIAN: Abdelrahman Onofre
REFERRING PHYSICIAN: Hospitalist
DICTATED BY: Abdelrahman Onofre
DATE/TIME OF REQUEST: 10/02/23
DATE/TIME OF CONSULTATION: 10/02/23
Reason for Consultation: Headache
History of Present Illness:
The patient is a 27-year-old with a past ministry of obesity, factor V Leiden mutation, DVT PE, diabetes, opioid use disorder who presented to hospital with left hand and finger pain and was treated here for left hand cellulitis, had had recent
trigger finger surgery. Neurology consulted due to headache which developed over the past day and a half.
Relates that the headache was gradual and is increased to a moderate to severe degree is located over the left temporal area. She has no associated vomiting but has had some nausea no photophobia. Relates some degree of neck pain as. No history
of head or neck trauma. Denies any history of migraine type headaches with photophobia phonophobia or visual aura. Denies any unilateral paresthesias briefly says she may have had some right-sided weakness of the arm in the past.
Patient relates that a few years ago she had had a significant severe headache and had had finding of brain microbleed on a brain MRI but nothing was seen on CT head noncontrast. Relates a history of retinal detachment and bleeding within the eye
last year with some headache at that time.
Past Medical History: History of left eye retinal detachment and vitreous hemorrhage, factor 5 Leiden with history DVT/PE on coumadin, May Thurner syndrome, opioid use disorder, obesity, type 2 diabetes,
Surgical History: Left index finger incision and drainage, left eye retinal detachment repair, appendectomy, left sinus polyp removal, septoplasty, myringotomy, hepatectomy
Family History: No family history of migraines
Social History: Patient lives at home with her parents, not currently working
Review of Symptoms:
Patient denies any fever, headache, chest pain, shortness of breath, GI or symptoms.
Physical Exam:
Young woman obese appears in pain no signs of head or neck trauma, neck with no masses, no meningismus has mildly restricted horizontal movements of the neck no abnormality to cervical spine palpation, eyes are outwardly clear with no evidence of
erythema or conjunctivitis or hemorrhage within the globe and no cellulitis or edema around the globe no ptosis. There is breath sounds are present bilaterally no wheezes clear to auscultation bilaterally breathing is unlabored heart rate is
regular abdomen is obese soft nontender, left hand has healing incision clean dry and intact with no purulence no lower extremity edema
Neurologic Examination:
Mental status shows an awake and alert patient who is fully oriented with fluent speech and intact comprehension fairly good historian, no evidence of neglect praxis is normal
Cranial nerve examination shows no ptosis no dysarthria smile is symmetric tongue is midline, patient is able to track and detect objects and follows them with her eyes seen in the left hemifield, when testing visual field objects she consistently
say she she sees no objects in the left hemifield due to her left eye but consistently will track and attend to 2 colorful objects and motion in the left hemifield. Able to identify fingers correctly in the right hemifield. Left eye has decreased
range of motion and extraocular movements, there is a left eye relative afferent pupillary defect. Right eye normal 3 mm pupil.
Motor examination shows no pronator drift normal bulk and tone no abnormal movements or tremor or parkinsonism power is 5/5 for shoulder abduction arm flexion hip flexion bilaterally
Intact to light touch in upper and lower extremity
Reflexes absent throughout
Normal finger-nose testing bilaterally
Able to stand unassisted
Neuro Imaging: CT head non contrast no acute abnormality within the brain, left eye shows hyperdensity most likely representing previous vitreous hemorrhage
CT C spine no fractures seen
Impressions
1. Headache felt most likely from acute illness, chronic pain and opiate use disorder. Additionally suspicious for behavior seeking narcotic medications and longer stay and workup in the hospital given she has non-physiologic findings on
neurologic examination and a normal neurologic exam. CT head and CT cervical spine with no structural abnormalities.
2. History of previous left eye retinal detachment and vitreous hemorrhage by patient report
Patient has the following risk factors for their symptoms:
Recommendations:
1. Tylenol as main modality for headache given presence of anticoagulation and clopidogrel
2. Given normal neurologic examination not recommending further brain imaging with brain MRI
3. Follow up with ophthalmology as an outpatient
Discussed patient care with: Patient and Dr Rock
Home Medications
-
Home Medications
clonidine HCl 0.1 mg tablet 0.1 mg PO TID Blood Pressure 07/27/18
gabapentin 300 mg capsule 900 mg PO Q8H Pain 10/27/18
bupropion HCl 150 mg 24 hr tablet, extended release 150 mg PO DAILY Depression 11/28/22
clopidogrel 75 mg tablet 75 mg PO DAILY Blood Clot Prevention/Tx 11/28/22
cyclobenzaprine 10 mg tablet 10 mg PO TIDPRN PRN muscle spasms 11/28/22
lorazepam 1 mg tablet 1 mg PO Q8H Mental Health/Anxiety 11/28/22
mometasone-formoterol HFA 200 mcg-5 mcg/actuation aerosol inhaler (Dulera) 2 puff inhalation R BID PRN Lung/Breathing Issues 11/29/22
insulin aspart U-100 100 unit/mL (3 mL) subcutaneous pen 0 - 32 sliding scale dose SC AC Diabetes 03/13/23
insulin glargine 100 unit/mL (3 mL) subcutaneous pen (Lantus Solostar U-100 Insulin) 40 unit SC BID Diabetes 03/13/23
atorvastatin 20 mg tablet 20 mg PO DAILY High Cholesterol 09/18/23
ferrous sulfate 325 mg (65 mg iron) tablet 325 mg PO BID Supplement 09/18/23
melatonin 3 mg tablet 9 mg PO HS sll 09/18/23
oxycodone 15 mg tablet 30 mg PO Q8H PRN moderate pain 09/18/23
bacitracin zinc 500 unit-polymyxin B 10,000 unit/gram top oint packet (Polysporin) 1 applic topical BID 14 days #1 ea 10/02/23
insulin aspart U-100 100 unit/mL (3 mL) subcutaneous pen 22 unit (0.22 mL) SC HS #0 mL 10/02/23
insulin aspart U-100 100 unit/mL (3 mL) subcutaneous pen 32 unit (0.32 mL) SC AC #0 mL 10/02/23
levofloxacin 500 mg tablet 500 mg PO DAILY 7 days #7 tabs 10/02/23
polyethylene glycol 3350 17 gram oral powder packet (HealthyLax) 17 g PO BID 30 days #60 ea 10/02/23
warfarin 5 mg tablet 10 mg (2 x 5 mg) PO QPM Blood Clot Prevention/Tx #30 tabs 10/02/23
Allergies
-
Allergies
Allergy/AdvReac Type Severity Reaction Status Date / Time
amoxicillin [Amoxicillin] Allergy Shortness Verified 09/18/23 14:27
of Breath
cephalexin Allergy tongue Verified 09/18/23 14:27
swelling/but
tolerated
cefepime,ceftriaxone,
etc.
haloperidol [From Haldol] Allergy Anaphylaxis Verified 09/18/23 14:27
haloperidol lactate Allergy Anaphylaxis Verified 09/18/23 14:27
[From Haldol]
Iodinated Contrast Media Allergy Itching Verified 09/18/23 14:27
ketorolac tromethamine Allergy Anaphylaxis Verified 03/13/23 13:59
[From Toradol]
linezolid [From Zyvox] Allergy Shortness Verified 09/18/23 14:27
of Breath
nystatin Allergy Rash Verified 09/18/23 14:27
Penicillins Allergy Shortness Verified 09/18/23 14:27
of Breath
Sulfa (Sulfonamide Allergy Hives Verified 09/18/23 14:27
Antibiotics)
sulfamethoxazole Allergy Hives Verified 09/18/23 14:27
[From Bactrim]
tramadol Allergy Anaphylaxis Verified 09/18/23 14:27
trimethoprim [From Bactrim] Allergy Hives Verified 09/18/23 14:27
Vital Signs / Labs
-
Vital Signs and Labs:
Temp Pulse Resp BP Pulse Ox
98.5 F 100 16 140/75 95
10/02/23 07:30 10/02/23 08:16 10/02/23 07:30 10/02/23 08:16 10/02/23 07:30
10/02/23 05:09
10/02/23 05:10
10/01/23 10/01/23 10/01/23
12:22 15:14 15:54
WBC
RBC
Hgb
Hct
MCV
MCH
Eosinophils %
PT
APTT 78.9 H
Sodium
Creatinine
Glucose
Calcium
POC Glucose 137 H 132 H
10/01/23 10/01/23 10/01/23
17:21 21:26 21:57
WBC
RBC
Hgb
Hct
MCV
MCH
Eosinophils %
PT
APTT 64.4 H
Sodium
Creatinine
Glucose
Calcium
POC Glucose 192 H 297 H
10/02/23 10/02/23 10/02/23
05:09 05:10 08:14
WBC 4.2 L
RBC 3.99 L
Hgb 10.5 L
Hct 30.5 L
MCV 76.4 L
MCH 26.3 L
Eosinophils % 8.6 H
PT 23.4 H
APTT 144.3 H
Sodium 132 L
Creatinine 0.5 L
Glucose 260 H
Calcium 8.3 L
POC Glucose 335 H
10/02/23
11:34
WBC
RBC
Hgb
Hct
MCV
MCH
Eosinophils %
PT
APTT
Sodium
Creatinine
Glucose
Calcium
POC Glucose 136 H
[2023-10-02] MEDS: NOVOLOG FLEXPEN SC (12:32)
--- NOTE | 2023-10-02 14:37 | PTCARENOTE ---
rn flow ground crewman aircraft support- Tab texted Dr. Howard for script for PT. Patient states that she saw him write it and she stated that he put it in the chart.
--- NOTE | 2023-10-02 14:46 | PTCARENOTE ---
Rn flow production machine tender-Dr. Howard returned text and states for patient to call Thursday for script.
== END 2023-10-02 14:18 | disposition home or self-care (01) | DRG 580 ==
LOC: 3 WEST ACU 17:36
PROVIDERS: Internal Medicine; Nurse Practitioner Family; Radiology Vascular & Interventional Radiology; Registered Nurse; ADMITTING PHYSICIAN Family Medicine; CONSULT PHYSICIAN Internal Medicine Infectious Disease; CONSULT PHYSICIAN Orthopaedic Surgery Hand Surgery; CONSULT PHYSICIAN Student in an Organized Health Care Education/Training Program; EMERGENCY PHYSICIAN Emergency Medicine; FAMILY PHYSICIAN Family Medicine
PROC: B5131ZA Fluoroscopy of Right Jugular Veins using Low Osmolar Contrast, Guidance (ICD-10-PCS; 2023-09-18)
PROC: 05HM33Z Insertion of Infusion Device into Right Internal Jugular Vein, Percutaneous Approach (ICD-10-PCS; 2023-09-18)
PROC: 0LN80ZZ Release Left Hand Tendon, Open Approach (ICD-10-PCS; 2023-09-20)
PROC: 0JBK0ZZ Excision of Left Hand Subcutaneous Tissue and Fascia, Open Approach (ICD-10-PCS; 2023-09-20)
DX: L03.012 Cellulitis of left finger (principal); F11.20 Opioid dependence, uncomplicated; F68.10 Factitious disorder imposed on self, unspecified; I87.1 Compression of vein; I16.1 Hypertensive emergency; L03.114 Cellulitis of left upper limb; I82.502 Chronic embolism and thrombosis of unspecified deep veins of left lower extremity; F41.9 Anxiety disorder, unspecified; F32.A Depression, unspecified; G89.4 Chronic pain syndrome; E66.01 Morbid (severe) obesity due to excess calories; E78.00 Pure hypercholesterolemia, unspecified; I10 Essential (primary) hypertension; M65.30 Trigger finger, unspecified finger; F60.3 Borderline personality disorder; K59.09 Other constipation; E88.819 Insulin resistance, unspecified; E11.65 Type 2 diabetes mellitus with hyperglycemia; R20.0 Anesthesia of skin; R07.89 Other chest pain; R51.9 Headache, unspecified; K59.03 Drug induced constipation; T40.2X5A Adverse effect of other opioids, initial encounter; Z96.41 Presence of insulin pump (external) (internal); Y92.9 Unspecified place or not applicable; Z86.711 Personal history of pulmonary embolism; Z86.74 Personal history of sudden cardiac arrest; Z87.442 Personal history of urinary calculi; Z79.4 Long term (current) use of insulin; Z68.36 Body mass index [BMI] 36.0-36.9, adult; Z88.5 Allergy status to narcotic agent; Z88.0 Allergy status to penicillin; Z88.2 Allergy status to sulfonamides; Z88.8 Allergy status to other drugs, medicaments and biological substances; Z88.1 Allergy status to other antibiotic agents; Z91.041 Radiographic dye allergy status; Z91.148 Patient's other noncompliance with medication regimen for other reason; Z95.828 Presence of other vascular implants and grafts
CPT/HCPCS: 36556; 70450; 71045; 72125; 73130; 76937; 77001; 80048; 80202; 81003; 81015; 82962; 83036; 83605; 83735; 84484; 85025; 85027; 85610; 85730; 86140; 87040; 87070; 87075; 87205; 93005; 96365; 96366; 96375; 96376; 97110; 97166; 99284; C1751; C1769

== ENCOUNTER 2023-12-18 22:00 | Emergency (ER) | payer OTHER, SELFPAY ==
[2023-12-18 22:06] VITALS: BP 174/122
[2023-12-18 22:59] VITALS: BMI 37.5
[2023-12-18 23:04] VITALS: BP 140/99
--- NOTE | 2023-12-18 23:40 | ED.GENMED ---
History of Present Illness
General
Chief Complaint: Cardiac Symptoms
Time Seen by Provider: 12/18/23 22:43
History of Present Illness
History of Present Illness:
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 Patient reports surgery on her left hand yesterday
at [facility] for an infection. She was told to come to the hospital for positive blood cultures and IV antibiotics. She was also told that she may have a blood clot, and notes that her heart has been racing. However, patient
notes that she did take her Coumadin today and also took her dose yesterday. Patient additionally reports that she is out of her oxycodone and has been taking her Ativan, is concerned that she is withdrawing and is concerned that she may have a
seizure because of the withdrawal. Denies chest pain. Denies abdominal pain. Patient limited historian, inconsistent details to complaints and story.
Past History
Past History
ED Past Medical History: HTN, Hypercholesterolemia, IDDM and Other (Deep vein thrombosis/PE, Kidney stones, UTI, Ulcers,)
ED Past Surgical History: Appendectomy, Orthopedic and Other (Tympanostomy tubes, wisdom teeth extraction. Nasal surgery)
Patient has exhibited threatening behavior?: No
PSI?: No
Social History
Tobacco: Non-smoker
Alcohol: None
Drug: None
Personal: Single
Living: with family
Family History
Family History: Other (Noncontributory)
Phy Exam
Physical Exam
Physical Exam:
General: No acute distress, anxious
HEENT: protecting airway
Neck: appears supple
CV: Tachycardic, regular rhythm, no evidence of cyanosis
Resp: No accessory muscle use, no increased work of breathing, lungs clear to auscultation bilaterally
Abd: Soft and non-distended, no tenderness to palpation, normal bowel sounds
Extremities: Evidence of incision to left first digit. No significant erythema or warmth. Sutures in place.
Neuro: alert, no focal neurologic deficit
: deferred
Rectal: deferred
Psych: Normal affect
Skin: Intact
Course
Orders/Labs/Results
Orders:
Orders
12/18/23 22:02
Electrocardiogram (*1) Urgent
Reason for Study: Chest Pain
EKG- Treatment ONCE
12/18/23 23:28
0.9% Sodium Chloride 1000 ml [Nss] 1,000 ml IV BOLUS
Acetaminophen [Tylenol] 1,000 mg PO NOW STA
Clonidine [Catapres] 0.1 mg PO NOW STA
12/18/23 23:29
Complete Blood Count/With Diff Urgent
Comprehensive Metabolic Panel Urgent
HCG, Serum Qualitative Screen Urgent
12/18/23 23:31
Test Result ONCE
12/19/23 01:[address] Non Medication Order As Directed
Physician Order: ok for lower extremity IV, difficult access
Above order entered?: Yes
12/19/23 01:14
Miscellaneous Order As Directed
Miscellaneous order: ok for lower extremity IV, difficult access
12/19/23 01:24
D-Dimer Urgent
Prothrombin Time Urgent
Abnormal Lab Results
12/19/23 12/19/23
00:50 01:24
Hgb 10.0 L g/dL
(12.0-16.0)
Hct 31.0 L %
(37.0-47.0)
MCV 71.6 L fL
(81.0-99.0)
MCH 23.1 L pg
(27.0-31.0)
MCHC 32.3 L g/dL
(33.0-37.0)
RDW 16.0 H %
(11.5-14.5)
Absolute Neuts (auto) 8.3 H 10^3/uL
(1.4-6.5)
Absolute Lymphs (auto) 0.7 L 10^3/uL
(1.2-3.4)
Neutrophils % 89.8 H %
(42.2-75.2)
Lymphocytes % 8.0 L %
(20.5-51.1)
Monocytes % 1.5 L %
(1.7-9.3)
PT 18.4 H Sec
(11.4-14.6)
Carbon Dioxide 20 L mmol/L
(22-30)
Creatinine 0.5 L mg/dL
(0.6-1.0)
Glucose 298 H mg/dl
(70-99)
AST 61 H U/L
(14-36)
ALT 76 H U/L
(0-35)
Alkaline Phosphatase 199 H U/L
(38-126)
12/19/23 00:50
12/19/23 00:50
Vital Signs
Initial and Last Documented VS:
Initial Vital Signs
Pulse Resp BP Pulse Ox
134 18 174/122 96
12/18/23 22:06 12/18/23 22:06 12/18/23 22:06 12/18/23 22:06
Last Documented Vital Signs
Pulse Resp BP Pulse Ox
134 18 174/122 96
12/18/23 22:06 12/18/23 22:06 12/18/23 22:06 12/18/23 22:06
MDM/Problems Addressed
MDM/Problems Addressed:
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 Vital
signs on arrival significant for tachycardia and hypertension.
On exam, patient is in no acute distress, however does appear anxious. Patient is disheveled. Will to access [employer], and see that patient's hand surgery was about a week ago at [facility]. Patient reports that her surgery was
yesterday. Patient's incision appears well-healed. No present secondary signs of infection. In addition, this is patient's third hospital visit today. Patient was seen at [facility] for similar complaints. Patient was
told to follow-up at [facility]. At this time concern for pain seeking behavior, given frequency of hospital visits and inconsistency of patient's complaints and story. Explained to patient that we would not be providing narcotics or
benzodiazepines today. Will obtain laboratory analysis and D-dimer for rule out PE. Do not feel patient requires any emergent need for IV antibiotics. Will treat with IV fluids and clonidine.
00:25 -after receiving clonidine, patient now reports that she went to leave the hospital. Patient remains tachycardic, so will be leaving [facility]. Advised that she go immediately to [facility]. Miscellaneous medical advice explained, including
respiratory or cardiac compromise. Patient verbalized understanding
00:40 -patient changed her mind, agreeable to lab work.
02:30 - Lab work is unremarkable, no leukocytosis or concern for underlying infection. Patient with hyperglycemia, no evidence of DKA. D-dimer is normal. Patient is subtherapeutic on Coumadin, however notes that she was recently restarted on her
Coumadin after recent surgery. Patient continues to sleep comfortably on reassessment. Do not feel patient requires any emergent IV antibiotics or inpatient therapy. No concern for withdrawal. On review of PDMP, patient has not been prescribed
narcotics or benzodiazepines since October. Feel stable for discharge with close interval follow-up with her doctor at [facility]. Return precautions discussed and patient verbalized understanding
*Critical Care Note
Total Time (30-74mins, 75-104mins- exclusive of procedures): Not Applicable
ED Attending Note
-
Portions of this chart may have been created with voice recognition software.� Occasional wrong word or��sound alike� substitutions may have occurred due to the inherent limitations of voice recognition software.
Discharge Plan
Departure
Patient with high blood pressure during this ER visit?: Yes
Condition: Fair
Discharge Problem:
Tachycardia
Instructions: Tachycardia, BLOOD PRESSURE
Prescriptions:
No Action
clonidine HCl 0.1 MG tablet
0.1 mg PO TID
gabapentin 300 MG capsule
900 mg PO Q8H
cyclobenzaprine 10 mg tablet
10 mg PO TIDPRN PRN (Reason: muscle spasms)
clopidogrel 75 mg tablet
75 mg PO DAILY
lorazepam 1 mg tablet
1 mg PO Q8H
Patient Comments:
09/18/2023: last filled 08/18/23, 9 tabs for 3 days from [id number]
bupropion HCl 150 mg tablet extended release 24 hr
150 mg PO DAILY
Dulera 200-5 mcg/actuation Hfa Aerosol Inhaler
2 puff INHALATION R BID PRN (Reason: Lung/Breathing Issues)
insulin aspart U-100 100 unit/mL (3 mL) Insulin Pen
0 - 32 sliding scale dose SC AC
insulin glargine [Lantus Solostar U-100 Insulin] 100 unit/mL (3 mL) Insulin Pen
40 unit SC BID
atorvastatin 20 mg tablet
20 mg PO DAILY
oxycodone 15 mg tablet
30 mg PO Q8H PRN (Reason: moderate pain)
Patient Comments:
09/18/2023: last filled 08/26/23, 48 tabs for 4 days from [facility]
melatonin 3 mg Tablet
9 mg PO HS
ferrous sulfate 325 mg (65 mg iron) Tablet
325 mg PO BID
polyethylene glycol 3350 [HealthyLax] 17 gram Powder In Packet
17 g PO BID 30 Days Qty: 60 0RF
insulin aspart U-100 100 unit/mL (3 mL) Insulin Pen
22 unit SC HS Qty: 0 0RF
insulin aspart U-100 100 unit/mL (3 mL) Insulin Pen
32 unit SC AC Qty: 0 0RF
Polysporin 500-10,000 unit/gram Ointment In Packet
1 applic topical BID 14 Days Qty: 1 0RF
levofloxacin 500 mg Tablet
500 mg PO DAILY 7 Days Qty: 7 0RF
warfarin 5 mg tablet
10 mg PO QPM Qty: 30 0RF
Referrals:
NONE,* [Family Provider] -
Activity Restrictions/Additional Instructions:
You were seen in the emergency department for elevated heart rate. You are advised to stay in the emergency department for laboratory analysis for rule out blood clot. You preferred to leave AGAINST MEDICAL ADVICE with the understanding that you
could have a serious pulmonary or cardiac issue that could result in respiratory or cardiac arrest. Please follow-up immediately with your doctor at [facility].
Interventions
Interventions:
*Risk Screen - Suicide Last Done: 12/18/23 22:59
*General Assessment Last Done: 12/18/23 22:08
*Neglect/Abuse Screening Last Done: 12/18/23 22:59
ED- Fall Risk Assessment Last Done: 12/18/23 22:59
*ED COVID-19 Vaccine History Last Done: 12/18/23 22:08
ED- Pulmonary Assessment Last Done: 12/18/23 22:59
ED- Cardiac Assessment Last Done: 12/18/23 22:59
Discharge Date and Time
Print Language: YI
--- NOTE | 2023-12-19 00:12 | VATNOTE ---
VAT paged to obtain PIV and lab work. Patient uncooperative and thrashing around in the bed. This VAT RN made two attempts to obtain a PIV both attempts failed as patient was yelling to stop and will not hold arm still despite several ED staff
members assistance. Patient refusing to be stuck for labs and PIV. Primary RN at bedside, attending MD notified.
[2023-12-19] MEDS: CATAPRES 0.1 MG PO (00:13)
[2023-12-19] MEDS: TYLENOL 1000 MG PO (00:13)
[2023-12-19 00:57] LABS: % Basophils 0.3 % (0-2); % Immature Granulocytes 0.4 % (0-0.5); % Monocytes 1.5 % (1.7-9.3); % Neutrophils 89.8 % (42.2-75.2); Absolute Lymphocytes 0.7 10^3/uL (1.2-3.4); Absolute Monocytes 0.1 10^3/uL (0.1-0.6); Absolute Neutrophils 8.3 10^3/uL (1.4-6.5); Mean Corp Hgb Conc. 32.3 g/dL (33.0-37.0); Mean Corpuscular Hgb 23.1 pg (27.0-31.0); Mean Corpuscular Volume 71.6 fL (81.0-99.0); Nucleated Red Blood Cells % 0 %; Platelet Count 330 10^3/uL (130-400); Red Blood Cell Count 4.33 10^6/uL (4.20-5.40); White Blood Cell Count 9.2 10^3/uL (4.8-10.8)
[2023-12-19 01:08] LABS: HCG, Serum Qualitative Screen Negative
[2023-12-19 01:14] LABS: AST (SGOT) 61 U/L (14-36); Albumin 4.8 g/dl (3.5-5.0); Alkaline Phosphatase 199 U/L (38-126); Blood Urea Nitrogen 8 mg/dl (7-17); Calcium 9.8 mg/dl (8.4-10.2); Carbon Dioxide 20 mmol/L (22-30); Chloride 101 mmol/L (98-107); Estimated Creatinine Clearance > 125 ml/min; Glucose 298 mg/dl (70-99); Potassium 4.6 mmol/L (3.5-5.1); Sodium 138 mmol/L (135-145); Total Bilirubin 0.6 mg/dl (0.2-1.3); Total Protein 7.5 g/dl (6.3-8.2); eGFR > 60.00
[2023-12-19 01:31] LABS: ALT (SGPT) 76 U/L (0-35)
[2023-12-19 02:18] LABS: INR 1.55; PT 18.4 Sec (11.4-14.6)
[2023-12-19 02:21] LABS: D-Dimer < 0.27 ug/mlFEU (0.00-0.50)
[2023-12-19 02:36] VITALS: BP 165/86
[2023-12-19] MEDS: ZOFRAN 4 MG PO (02:39)
== END 2023-12-19 03:23 | disposition home or self-care (01) ==
LOC: EMR 22:00
PROVIDERS: EMERGENCY PHYSICIAN Student in an Organized Health Care Education/Training Program
DX: R00.0 Tachycardia, unspecified (principal); R07.9 Chest pain, unspecified; Z53.29 Procedure and treatment not carried out because of patient's decision for other reasons; D68.51 Activated protein C resistance; I10 Essential (primary) hypertension; E78.00 Pure hypercholesterolemia, unspecified; E11.65 Type 2 diabetes mellitus with hyperglycemia; Z79.01 Long term (current) use of anticoagulants; Z79.4 Long term (current) use of insulin; Z87.442 Personal history of urinary calculi; Z87.440 Personal history of urinary (tract) infections; Z98.890 Other specified postprocedural states; Z88.0 Allergy status to penicillin; Z88.2 Allergy status to sulfonamides; Z88.8 Allergy status to other drugs, medicaments and biological substances; Z88.6 Allergy status to analgesic agent; Z88.1 Allergy status to other antibiotic agents; Z91.041 Radiographic dye allergy status
CPT/HCPCS: 99283; 80053; 84703; 85025; 85379; 85610; 93005

== ENCOUNTER 2025-03-13 15:30 | Inpatient (IN) | payer OTHER, SELFPAY ==
[2025-03-13] VITALS (16 sets, daily range): BP systolic 98–152; BP diastolic 53–118; BMI 35.8
[2025-03-13 12:15] LABS: Glucose - Point of Care 386 mg/dl (70-99)
--- NOTE | 2025-03-13 12:22 | EDRN ---
Pt refusing to sit in wheelchair in waiting, This RN educated patient on the importance of staying in the wheelchair d/t her dizziness. Pt continued to refuse to stay sitting and was leaning over wall, yelling out to this RN stating 'I need
medication because I am in Benzo and pain medication withdrawal'. Pt informed that she has a room and needs to sit in the wheelchair. Pt ambulated with steady gait back to wheelchair. Pt wheeled to room 19 by this RN and ambulated to bed with steady
gait, started to hyperventilate and said she was SOB. Pt placed on SPO2 with reading of 98%. LB Us in room with patient.
[2025-03-13 13:05] LABS: Urine Character Clear (Clear)
[2025-03-13 13:14] LABS: Hematocrit 36.5 % (37.0-47.0); Hemoglobin 12.5 g/dL (12.0-16.0); Mean Corp Hgb Conc. 34.2 g/dL (33.0-37.0); Mean Corpuscular Volume 77.3 fL (81.0-99.0); Nucleated Red Blood Cells % 0 %; Platelet Count 328 10^3/uL (130-400); Red Cell Dist. Width 14.6 % (11.5-14.5)
--- NOTE | 2025-03-13 13:17 | ED.GENMED ---
History of Present Illness
General
Chief Complaint: Blood Sugar Problem
Source: patient
Exam Limitations: none
Time Seen by Provider: 03/13/25 12:50
History of Present Illness
History of Present Illness:
See MDM
Past History
Past History
ED Past Medical History: HTN, Hypercholesterolemia, IDDM and Other (Deep vein thrombosis/PE, Kidney stones, UTI, Ulcers,)
ED Past Surgical History: Appendectomy, Orthopedic and Other (Tympanostomy tubes, wisdom teeth extraction. Nasal surgery)
Patient has exhibited threatening behavior?: No
PSI?: No
Social History
Tobacco: Non-smoker
Alcohol: None
Drug: None
Personal: Single
Living: with family
Family History
Family History: Other (Noncontributory)
Phy Exam
Physical Exam
Physical Exam:
See MDM
Course
Orders/Labs/Results
Orders:
Orders
03/13/25 12:23
Urine Drug Abuse Screen Urgent
Date Specimen was Collected: 03/13/25
Time Specimen was Collected: 12:14
Urine Microscopic Reflex Cult Urgent
Urine Reflex Culture from UA [Urinalysis Reflex To Culture] Urgent
Date Specimen was Collected: 03/13/25
Time Specimen was Collected: 12:14
Urine Culture Urgent
ANAMIKA Source: U
Specimen Description:
Date Specimen was Collected: 03/13/25
Time Specimen was Collected: 12:14
03/13/25 12:58
B-Hydroxybutyrate Urgent
Complete Blood Count/With Diff Urgent
Comprehensive Metabolic Panel Urgent
Glycohemoglobin (HgbA1c) Urgent
HCG, Serum Qualitative Screen Urgent
Comment: ADD ON
Lactic Acid Urgent
Lipase Urgent
Venous Blood Gas Urgent
%Oxygen/Room Air: room air
03/13/25 13:15
Midazolam HCl [Versed] 2 mg IV NOW STA
03/13/25 13:46
Bedside Glucose- Treatment Q1H
IV Insert/Care/Rem.- Treatment PRN
HYDROmorphone [Dilaudid] 2 mg IV NOW STA
03/13/25 13:51
Diphenhydramine [Benadryl] 50 mg IV NOW STA
03/13/25 13:57
Venous Doppler Lwr Ext Bilat [US Periph Venous LOWER Ext Edward] Urgent
Comment:
Reason For Exam: Pain, R/O DVT
03/13/25 14:00
Basic Metabolic Panel Q2H
03/13/25 14:05
Add On- LAB Urgent
Tests Added?: HbA1C
Add On- LAB Urgent
Tests Added?: serum HCG
03/13/25 14:06
Old Records Request [Obtain Records] As Directed
Dates of Information to be Released: last
Type of Information Requested: Entire Record
Comment: [facility]
03/13/25 14:11
Reg Insulin 100 Units/100 ml [Novolin R Insulin Infusion] 100 units in 100 ml IV NOW
03/13/25 14:15
Blood Culture Q30M
ANAMIKA Source: Blood/Venous
Specimen Description:
03/13/25 14:17
Add On- LAB Routine
Tests Added?: Urine Drug Screen
03/13/25 14:18
Sodium Bicarbonate 50 meq IV NOW STA
03/13/25 14:22
IRAD CONSULT Urgent
Consulting Provider: Alexi Madsen
Was physician already notified: Yes
Procedure being ordered, including laterality if applicable: Central Line Placement
Acknowledgement that appropriate orders are entered: Yes
03/13/25 14:23
Central Line As Directed
03/13/25 14:30
0.9% Sodium Chloride 1000 ml [Nss] 1,000 ml IV 150 mls/hr
03/13/25 14:31
Admit/Transfer Patient As Directed
Co-Sign Provider:
Level of Care: Inpatient admission
Assign to:: ICU
Physician / Group: Hospitalists, Dr. Carrera
Diagnosis: DKA
Reason for Hospitalization: DKA, requiring IV insulin, unstable
Expected length of stay greater than two midnights?: Yes
ELOS- Estimated Length of Stay in days: 5
I certify the patient meets the requirements for IP care: Yes
PRN Pain Medication Management As Directed
May give lesser potent ordered pain med per pt: Yes
preference::
Protocol:: Medication orders for pain may be administered in a
manner that supports deferring to patient preference
when the pt is:
- Requesting an ordered lesser potent pain medication.
Least to most potent pain medications are defined
as: acetaminophen < NSAID < tramadol < opioids
(morphine, oxycodone, hydromorphone).
- Requesting a lesser dose of the same medication IF
ORDERED.
- Requesting a less intrusive route of administration
if both routes are prescribed by the provider (PO <
IV).
03/13/25 14:38
Lactate Level [Lactic Acid] Stat
03/13/25 14:45
Blood Culture Q30M
ANAMIKA Source: Blood/Venous
Specimen Description:
03/13/25 14:50
Code Status As Directed
Resuscitation Status: Full Code
03/13/25 14:51
HYDROmorphone [Dilaudid] 2 mg IV NOW STA
03/13/25 15:08
Ondansetron Orally Disint [Zofran Odt (Orally Disintegrating)] 4 mg PO NOW STA
03/13/25 16:00
Basic Metabolic Panel Q2H
03/13/25 18:00
Basic Metabolic Panel Q2H
Abnormal Lab Results
03/13/25 03/13/25 03/13/25
12:13 12:23 12:58
WBC 13.5 H 10^3/uL
(4.8-10.8)
Hct 36.5 L %
(37.0-47.0)
MCV 77.3 L fL
(81.0-99.0)
MCH 26.5 L pg
(27.0-31.0)
RDW 14.6 H %
(11.5-14.5)
Abs Immat Gran (auto) 0.1 H 10^3/uL
(0-0.05)
Absolute Neuts (auto) 12.0 H 10^3/uL
(1.4-6.5)
Absolute Lymphs (auto) 0.9 L 10^3/uL
(1.2-3.4)
Neutrophils % 88.8 H %
(42.2-75.2)
Lymphocytes % 7.0 L %
(20.5-51.1)
VBG pH 7.25 L
(7.32-7.43)
VBG pCO2 22 L mmHg
(35-48)
VBG pO2 179 H mmHg
(30-50)
VBG HCO3 9.6 L mmol/L
(22-27)
Chloride 110 H mmol/L
(98-107)
Carbon Dioxide < 5 L* mmol/L
(22-30)
Creatinine 0.5 L mg/dL
(0.6-1.0)
Glucose 459 H* mg/dl
(70-99)
Calcium 7.7 L mg/dl
(8.4-10.2)
Alkaline Phosphatase 167 H U/L
(38-126)
Total Protein 6.1 L g/dl
(6.3-8.2)
Urine Ketones 3+ A
(Negative)
Ur Occult Blood Reflex 3+ A
(Negative)
Leukocyte Esterase Rfl 2+ A
(Negative)
Urine RBC 11-15 A /HPF
(0-2)
Urine WBC (Reflex) 40-50 A /HPF
(0-5)
Urine Bacteria (Reflex) Few A
(Negative)
Urine Glucose 4+ A
(Negative)
Urine Albumin (Reflex) 1+ A
(Neg - Trace)
POC Glucose 386 H mg/dl
(70-99)
03/13/25 03/13/25
14:42 14:47
WBC
Hct
MCV
MCH
RDW
Abs Immat Gran (auto)
Absolute Neuts (auto)
Absolute Lymphs (auto)
Neutrophils %
Lymphocytes %
VBG pH
VBG pCO2
VBG pO2
VBG HCO3
Chloride
Carbon Dioxide
Creatinine
Glucose
Calcium
Alkaline Phosphatase
Total Protein
Urine Ketones
Ur Occult Blood Reflex
Leukocyte Esterase Rfl
Urine RBC
Urine WBC (Reflex)
Urine Bacteria (Reflex)
Urine Glucose
Urine Albumin (Reflex)
POC Glucose 496 H* mg/dl 516 H* mg/dl
(70-99) (70-99)
03/13/25 12:58
Vital Signs
Initial and Last Documented VS:
Initial Vital Signs
Temp Pulse Resp Pulse Ox
98.2 F 144 20 99
03/13/25 12:10 03/13/25 12:10 03/13/25 12:10 03/13/25 12:10
Last Documented Vital Signs
Temp Pulse Resp BP Pulse Ox
98.2 F 145 26 122/82 98
03/13/25 12:10 03/13/25 12:34 03/13/25 12:34 03/13/25 12:34 03/13/25 13:21
Procedures
Central Line
Right Femoral:
Indication for procedure:: DKA, IV access
Procedure completed by: Ankur Lorenzana DO
Anesthesia: 1% Lidocaine
Central line lumen: triple
Number of attempts: 1
Central line complications: none
Sterile dressing applied?: Yes
MDM/Problems Addressed
Differential Diagnosis Includes:
Note:
CHIEF COMPLAINT(S)
The patient presents with abdominal pain and a history of diabetic ketoacidosis (DKA) and sepsis, following a recent admission from another [facility] intensive care unit.
HISTORY OF PRESENT ILLNESS
The patient is a 29-year-old female with a known history of diabetic ketoacidosis, who presents after leaving [facility] against medical advice. The patient reports a history of sepsis, DKA, and was diagnosed with appendicitis and ulcerative
colitis based on a recent computed tomography scan. She exhibits inflammation of the umbilicus suggestive of an infection and reports severe pain that migrated from the initial site to the current location, accompanied by diarrhea 15 times. The
patient has been on an insulin drip, Presedex (dexmedetomidine), and had left thigh PIV. She expresses concerns about getting a central line. She is refusing it. The patient reports medication orders from the previous facility, including
phenobarbital. She left the ICU partially due to a comment from a physician regarding her substance use history, including benzodiazepines and opioids. Patient states her care was usually received at [facility] and states that is why she left the
ICU at [facility]. Patient is refusing a peripheral IV in her arms and is requesting a peripheral IV in her thigh. Patient is currently refusing any central line as well. Patient is already requesting IV benzodiazepines and IV opiates.
CHRONIC MEDICAL CONDITIONS SIGNIFICANTLY AFFECTING CARE
The patient has a history of diabetic ketoacidosis.
SOCIAL DETERMINANTS AFFECTING HEALTH
The patient reports a history of benzodiazepine and opioid use, which has influenced her medical care, including a recent negative interaction with a healthcare provider.
REVIEW OF SYSTEMS
- Gastrointestinal: Severe abdominal pain, diarrhea 15 times.
- Integumentary: Severe throat itching.
PHYSICAL EXAM
General: Alert, no acute distress.
Skin: Warm, dry. Several IV injection sites noted to both medial thighs.
Head: Normocephalic, atraumatic
Neck: Appears supple, trachea midline.
Eyes, Ears, Nose, Mouth, and Throat: Dry mucous membranes. Poor dentition
Cardiovascular: No signs of cyanosis. Tachycardic
Respiratory: Respirations are non-labored.
Abdomen: Non-distended. Mild erythema around the umbilicus. Mild suprapubic tenderness. No rebound
Musculoskeletal: No deformities
Neurological: No focal neurological deficit observed.
Psychiatric: Anxious
PROBLEM LIST
Acute Problems:
- Abdominal pain
- Diarrhea
- Suspected infection with umbilical inflammation
PLAN
1. Establish intravenous access, potentially via interventional radiology if peripheral access is unsuccessful.
2. Review recent laboratory and imaging results to confirm the diagnoses of appendicitis and ulcerative colitis.
3. Administer appropriate medications and fluids as determined after obtaining intravenous access.
4. Monitor for signs of infection and consider antibiotic therapy as indicated.
5. Consult interventional radiology for possible line placement if necessary.
6. Evaluate the patients medication orders and allergy concerns from the previous facility.
7. Address the patients concerns about intubation, ensuring she is aware of current treatment goals and measures to avoid intubation unless absolutely necessary.
DIFFERENTIAL DIAGNOSIS
The Differential Diagnosis includes, in no particular order and is not limited to:
1. Acute appendicitis
2. Ulcerative colitis flare
3. Diabetic ketoacidosis
4. Sepsis
5. Gastroenteritis
6. Inflammatory bowel disease exacerbation
7. Acute gastroenteritis
8. Ileitis
9. Intestinal obstruction
10. Pancreatitis
CARE-UPDATE
03/13/25 - 13:13
Performed ultrasound-guided peripheral IV placement in the right thigh without difficulty after patients request. Evaluated CT report from March 11 on her portal on her phone, indicating no appendicitis contrary to patient belief, presence of an
umbilical hernia, and evidence of colitis. Expressed concern over potential DVT in left thigh, though currently no confirmation of this condition.
SUMMARY OF ENCOUNTER
The patient, a 29-year-old female with a known history of diabetic ketoacidosis (DKA), was seen in the emergency department for severe abdominal pain, diarrhea, and suspected infection. She left [facility] against medical advice and presents now
with a history of recent sepsis, DKA, and colitis. She reports throat itching and inflammation of the umbilicus. In the emergency department, management involved reinitiating the insulin drip due to DKA concerns. The patient also required
intravenous benzodiazepines and opiates for withdrawal symptoms. Continuous IV fluids were administered to address dehydration and support hemodynamic stability.
DISPOSITION
Admit
ASSESSMENT
The patient is experiencing a recurrent episode of diabetic ketoacidosis, requiring reinitiation of insulin therapy, due to poor glucose control. There is a suspected infection as evidenced by umbilical inflammation, accompanied by diarrhea. The
patients history of substance use complicates management and requires medical treatment for withdrawal symptoms.
PLAN
1. Restart the insulin drip to manage diabetic ketoacidosis.
2. Administer intravenous benzodiazepines and opiates as needed for withdrawal management.
3. Continue intravenous fluids to maintain hydration and address any potential electrolyte imbalances.
4. Admit the patient for further workup and management of DKA and underlying conditions.
5. Attempt to obtain previous records from [facility] to inform ongoing care and management.
INDEPENDENT REVIEW OF LABS AND INTERPRETATION OF TESTS
N/A
MEDICATION RECONCILIATION
- Insulin infusion restarted for management of diabetic ketoacidosis.
- Intravenous benzodiazepines administered for drug withdrawal symptoms.
- Intravenous opiates administered for drug withdrawal symptoms.
MEDICAL DECISION MAKING
-Complexity of Data Reviewed: Chronic conditions affecting care include diabetic ketoacidosis. The DDx list includes acute appendicitis, ulcerative colitis flare, DKA, sepsis, gastroenteritis, inflammatory bowel disease exacerbation, acute
gastroenteritis, ileitis, intestinal obstruction, and pancreatitis.
-Data:
Category 1: N/A
Category 2: N/A
Category 3: N/A
-Risk: The patient was admitted due to the high risk of complications related to diabetic ketoacidosis and withdrawal symptoms.
DIAGNOSIS
- Diabetic ketoacidosis (E13.10)
- Acute drug withdrawal (F19.239)
- Suspected infection (to be further evaluated) (R69)
*Pulse Oximetry
SaO2: 98
Oxygen Mode of Delivery: Room air
Patient hypoxic: no
*Critical Care Note
Total Time (30-74mins, 75-104mins- exclusive of procedures): 33 min
comment:
The high probability of a clinically significant, sudden or life threatening deterioration of the endocrine system(s) required my full and direct attention, intervention and personal management. The aggregate critical care time was 33 minutes. This
time is in addition to time spent performing reported procedures but includes the following:
[x] Data Review and interpretation
[x] Patient assessment and monitoring of vital signs
[x] Documentation
[x] Medication orders and management
Update Note
Update Note:
3 PM patient care discussed with admitting team. The admitting team was able to convince her for a central line. Patient gave me verbal consent to place a right femoral central line. She tolerated the procedure well without complication
ED Attending Note
-
Portions of this chart may have been created with voice recognition software.� Occasional wrong word or��sound alike� substitutions may have occurred due to the inherent limitations of voice recognition software.
Discharge Plan
Departure
Patient Disposition: Admit
Date of Disposition: 03/13/25
Time of Disposition: 14:08
Admit to: ICU
Presentation/result/management discussed w/ accepting MD/DO: Hospitalist
Discharge Problem:
DKA, type 1, Acute drug withdrawal syndrome
Interventions
Interventions:
*Risk Screen - Suicide Last Done: 03/13/25 12:37
*General Assessment Last Done: 03/13/25 12:10
*Neglect/Abuse Screening Last Done: 03/13/25 12:37
*ED- Fall Risk Assessment Last Done: 03/13/25 12:37
*ED COVID-19 Vaccine History Last Done: 03/13/25 12:37
*ED Influenza Vaccine History Last Done: 03/13/25 12:37
ED- Neurological Assessment Last Done: 03/13/25 12:37
[2025-03-13] MEDS: VERSED 2 MG IV (13:25)
[2025-03-13 13:26] LABS: Venous Blood Gas B.E. -15.7 mmol/L (-4 to +4); Venous Blood Gas O2 Sat % 99.5 %
[2025-03-13 13:34] LABS: Urine Squamous Cell 0-2 /LPF (Few); Urine Urothelial Cell 0-2 /LPF (FEW)
[2025-03-13 13:35] LABS: Urine White Cell 40-50 /HPF (0-5)
[2025-03-13 13:44] LABS: ALT (SGPT) 17 U/L (0-35); AST (SGOT) 14 U/L (14-36); Albumin 3.7 g/dl (3.5-5.0); Alkaline Phosphatase 167 U/L (38-126); Blood Urea Nitrogen 7 mg/dl (7-17); Calcium 7.7 mg/dl (8.4-10.2); Carbon Dioxide < 5 mmol/L (22-30); Chloride 110 mmol/L (98-107); Estimated Creatinine Clearance > 125 ml/min; Glucose 459 mg/dl (70-99); Lipase 173 U/L (23-300); Potassium 4.0 mmol/L (3.5-5.1); Sodium 136 mmol/L (135-145); Total Protein 6.1 g/dl (6.3-8.2); eGFR > 60.00
[2025-03-13] MEDS: DILAUDID 2 MG IV ×3 (13:53→21:07)
[2025-03-13] MEDS: BENADRYL 50 MG IV ×3 (13:53→22:45)
--- NOTE | 2025-03-13 13:56 | W.PN.UPDATE ---
Update Note
Progress Note Update
29-year-old female with elevated blood sugars.
With difficulty I reviewed previous medical records from [facility].
Reportedly patient has had multiple admissions to several hospitals throughout the region. One of the notes that that she has had 14 admissions between 12/20/2024 and 03/06/2025.
Patient would not give any straight history just claims that she wants Dilaudid and she is going through benzo withdrawal. She claims that she abuses ' Xany bars', fentanyl and oxycodone which she buys from the street and uses. She feels that she
may be going through withdrawal.
Patient stated and kept saying that she was seen in [facility] ICU. We called [facility] and was on hold for almost half an hour they looked through their system and could not find that the patient was admitted to [facility].
Upon reviewing [facility] we found that the patient was admitted to [facility] ICU from where patient left AMA today. Prior to that she was admitted to [facility] where she was noted to be hyperglycemic in the ER but not in
DKA. She left AMA after denied narcotics there.
There is also another visit noted at [facility] on 03/08/2025
She also left AMA from [facility] on 03/06/2025 per Chart
Left AMA from [facility] and [facility] in the past few months per father
Outpatient CT reviewed
03/08/25- Mild circumferential wall thickening of the transverse colon without pericolonic inflammatory changes, likely related to mild nonspecific colitis versus underdistention. No pneumatosis or portal venous gas.
Small fat-containing umbilical hernia with�nonspecific skin thickening measuring approximately 2 x 1.5 x 2.8 cm. Correlate with direct visualization exclude underlying infection. No evidence of drainable subcutaneous fluid collection.
03/11/2025 10:17 AM EDT�
Mild circumferential wall thickening of the transverse colon without pericolonic inflammatory changes, likely related to mild nonspecific colitis versus underdistention. No pneumatosis or portal venous gas.
Small fat-containing umbilical hernia with nonspecific skin thickening measuring approximately 2 x 1.5 x 2.8 cm. Correlate with direct visualization exclude underlying infection. No evidence of drainable subcutaneous fluid collection.
Case management spoke to mom, who said , she has noted recent drug abuse and also patient was at [place] and left [facility]. For the past 3 years patient has been hopping from hospital to hospital.
Previous records indicate
Anemia
Cluster B personality disorder -Per psychiatry evaluation Apr 2019
Diabetes mellitus
Drug-seeking behavior
Opioids and benzodiazepines
DVT (deep venous thrombosis)
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
Factor V deficiency
Kidney calculi
PE (pulmonary thromboembolism)
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
Patient did not let us examine her, interview her or intervene in her care for at least an hour after we started examining her. We had to firmly talk to the patient that she may without medical care as her bicarb was very low and sugars really
high.
On examination patient is awake alert screaming that she is 'going to '. Initially she would not let the ER attending physician place a line on her. Later we convinced her to get a central line to give her medicines and IV fluids. With very
reluctance she finally agreed to it as the femoral IPV also became nonfunctional. She is very tangential in answering any questions and very confused in terms of dates. Will not give a straight answer to any questions. She is focused on getting
benzos and opiates as she feels she is in withdrawal.
Cardiovascular system S1-S2 appreciated
Chest clear to auscultation
Abdomen midline scar, no rigidity, bowel sounds present
Extremities no edema
Left index finger extension abnormality noted
Right big toe-nailbed exposed with blackish discoloration, pulses felt
No edema
Small areas of ecchymosis bilateral lower extremities
# DKA-Secondary to noncompliance
Poorly controlled diabetes Type 1 diagnosed at age 1.
Also rule out infection-treat UTI
Blood cultures
Insulin drip to be continued
IV fluids
Follow BMP until gap closes
Reportedly patient is on Lantus insulin 35 units twice daily
And aspart on a sliding scale as outpatient
Hourly Accu-Cheks
Patient was given 1 dose of IV bicarb because of very low serum bicarb
# Agitation/abnormal behavior
Urine drug screen with methadone, barbiturates, benzos
Will start the patient on microdosing protocol, clonidine, Zanaflex as needed
Psychiatry evaluation
[facility] consult
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 If INR is subtherapeutic we will start heparin or Lovenox
# History of left index finger flexor tenosynovitis with history of incision and drainage and left trigger finger release at [facility] in [place]
# Borderline personality disorder/ADD/anxiety/depression-on sertraline 150 milligrams daily , Wellbutrin 150 mg twice , Abilify 10 mg daily as outpatient, Clonidine 0.3 mg 3 times daily. Psychiatric consultation.
# Morbid obesity with a BMI of 35
# Diabetic neuropathy-continue gabapentin
# Insomnia-continue melatonin
# History of left eye retinal detachment tear
# History of nephrolithiasis
# Noncompliance
# Full code
Total critical care time more than an hour managing vital signs, convincing patient to get IV line, examining the patient, getting history, looking up medical records took additional hour or non critical care time
Spoke to father . He lives in [place] and takes care of his mom. He is planning to move to [place] with the patient eventually. Pt's Parents are . Dad says she has not been home for 2.5- 3 years. she has been in hospitals, rehabs,
blood sugar goes up goes back to the hospital least AMA. Father has not seen her for a while.
Discussed with father that DKA can be life-threatening and her bicarb is less than 5
--- NOTE | 2025-03-13 14:04 | PHANOTE ---
med rec note- patient stated she take oxycodone 15mh prn. patient has not recently filled 15mg or this year in [facility]. [facility] filled oxycodone 15mg back 2022 for 15 tablets. patient has no [facility] records unable to confirm med list with patient
Nebo bryon and her pharmacy [facility] in [place] permanently closed
[2025-03-13 14:44] LABS: Glucose - Point of Care 496 mg/dl (70-99)
[2025-03-13 14:48] LABS: Glucose - Point of Care 516 mg/dl (70-99)
[2025-03-13 15:03] LABS: HCG, Serum Qualitative Screen Negative
[2025-03-13] MEDS: ZOFRAN ODT (ORALLY DISINTEGRATING) 4 MG PO (15:10)
[2025-03-13] MEDS: NSS 1000 IV (15:31)
[2025-03-13] MEDS: SODIUM BICARBONATE 50 MEQ IV ×2 (15:31→17:46)
[2025-03-13] MEDS: NOVOLIN R INSULIN INFUSION 100 IV (15:52)
[2025-03-13] MEDS: PROTONIX IV 40 MG IV (16:01)
[2025-03-13] MEDS: NSS (PRESERVATIVE FREE) 10 ML IV (16:01)
--- NOTE | 2025-03-13 16:09 | CM ---
CM completed bedside visit to obtain info and PLOF
Pt notes she resides with her mother and sister
She has working dexcom and BGM, she manages her own insulin
Noted her mother Hien Holden [phone] should be primary contact
Plan for pt to be admitted to ICU
PCP- Jose Alejandro Fox
Rx- [facility]
Call with mother/Hien with update
She notes she resides at [facility] and pt has spent the better part of 3 years in different hospitals
Pt is mostly estranged from her family
Pt's father resides at [address] [place] [address], parents are
Mother noted pt with IV D/A hx and was in [facility] 3 months prior
Mother also noted pt was admitted to [facility] ICU and left AMA today
Mother noted pt has multiple admissions to hospitals through [facility], [place], [place], [place], [place], and [facility] over the last 3 years
Discharge Disposition- TBD
[2025-03-13 16:26] LABS: Blood Urea Nitrogen 10 mg/dl (7-17); Calcium 8.9 mg/dl (8.4-10.2); Carbon Dioxide 5 mmol/L (22-30); Chloride 103 mmol/L (98-107); Estimated Creatinine Clearance > 125 ml/min; Glucose 617 mg/dl (70-99); Potassium 4.8 mmol/L (3.5-5.1); Sodium 135 mmol/L (135-145); eGFR > 60.00
--- NOTE | 2025-03-13 16:38 | HPS.HSE ---
Family Physician
-
Family Physician: NOT KNOW UNKNOWN - PT DOES
Chief Complaint
-
Abdominal Pain, Nausea, Diarrhea
History of Present Illness
This is a 29 y/o female with pmhx of morbid obesity, type 1 diabetes mellitus, anxiety, depression, Factor V Leiden with History of Lower Extremity DVT, and polysubstance abuse.
Briefly, patient has been seen at several different hospitals this year including [facility] (02/24), [facility] (02/03), [facility] (01/28). [facility] (01/26) and [facility]. By patient's report, she began to feel nauseous with vomiting
and abdominal pain under her belly button that radiated to her right side, prompting her to visit [facility]. She reports that she had run out of insulin a few days prior to this, and at [facility] had been admitted to the ICU for DKA. She
states she was also given Dilaudid while she was there, as she reports recent use of Xani-Bars, Fentanyl, Citalopram, Ativan and oxycodone. However, she then reports she left [facility] AMA on Thursday night. She was unable to quantify why she left,
or how long she was admitted there. She states on Thursday night she went to her Mom's house, then her Father's house on Thursday. She continued to feel midline abdominal pain radiating to her right side with nausea, vomiting, and now diarrhea with 18
reported bowel movements thus far today. She also endorses shortness of pain, full body itching and 'feeling like she is dying'. She reports her last use of Xani-Bars, Fentanyl, Citalopram, Ativan and oxycodone were just prior to her admission. This
history was difficult to obtain from her as she was very evasive about answering specifics not related to her current symptoms of nausea, vomiting and shortness of breath.
Further information was obtained from [facility], who reports she has not been seen there in some time. An extensive chart review was performed and revealed she was seen at [facility], but left AMA on 03/06. On 03/08 she presented to [facility]
where she left AMA again on 03/10. She was then seen at [facility] on 03/11 for treatment of opioid/benzo withdrawal. By chart review, she was hyperglycemic at that time but not noted to be in DKA. She left the ED after being denied
narcotics, and several hours later presented to [facility] with labs concerning for DKA (Glucose 792, CO2 11, AG 21, HBH 4.88). Rapid Drug screen was positive for barbiturates and benzodiazepines only. She was admitted to the
ICU and was loaded with 10mg/kg of phenobarbital and 25mg IV Benadryl, and overnight was placed on Precedex infusion for agitation. Her anion gap closed on 03/12, and she was transitioned to non-DKA insulin drip and an attempt was made to wean her
off Precedex with a RASS goal of 0. Toxicology was consulted, and determined that she had been extensively hospitalized for the last several months with minimal time out of the hospital and thus had a low risk for complicated benzodiazepine
withdrawal, thus recommended avoiding IV opioids, IV diphenhydramine, and IV benzodiazepines unless clinically indicated. On the morning of 03/13, she was fully weaned off Precedex and became irate. Loperamide and Zofran were ordered due to her
concerns of diarrhea and nausea. She was given methadone 30mg at the advice of Toxicology, and immediately following began 'screaming at staff that she [was] leaving the hospital'. According to the quick note on 03/13/2025 at 10:53AM, she demanded to
leave AMA despite warnings that she was still receiving IV insulin infusion. She denied any new prescriptions and left AMA after affirming she understood the risks of leaving AMA. It appears that she presented to the [place] ED only a few hours
later through unknown transportation means.
Medical History
Past Medical History
Past Medical History: Reports IDDM and Seizures (From withdrawal, by patient's report)
Additional Past Medical History:
Anemia
Cluster B personality disorder -Per psychiatry evaluation Apr 2019
Diabetes mellitus Type 1
Drug-seeking behavior, Polysubstance Abuse of Opioids and benzodiazepines
Factor V deficiency with History of DVT (deep venous thrombosis) and PE (Pulmonary Embolism)
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
History of Kidney calculi
Past Surgical History: Reports Other (Liver Resection)
Social History
Unable to obtain full social history at this time due to: Other (Patient Non-cooperation)
Drug: Other (Patient reports fentanyl, 'Xanibars', Ativan, Oxycodone, citalopram)
Living: Homeless
Family History
Family History: Unable to Obtain
Allergies / Home Medications
Allergies reflects when Allergies were last updated in [facility].
Home Medications with original date entered in [facility]
Allergy/Medication List:
Allergies
Allergy/AdvReac Type Severity Reaction Status Date / Time
amoxicillin (Amoxicillin) Allergy Shortness Verified 03/13/25 12:10
of Breath
cephalexin Allergy tongue Verified 03/13/25 12:10
swelling/but
tolerated
cefepime,ceftriaxone,
etc.
haloperidol (From Haldol) Allergy Anaphylaxis Verified 03/13/25 12:10
haloperidol lactate (From Allergy Anaphylaxis Verified 03/13/25 12:10
Haldol)
Iodinated Contrast Media Allergy Itching Verified 03/13/25 12:10
ketorolac tromethamine (From Allergy Anaphylaxis Verified 03/13/25 12:10
Toradol)
linezolid (From Zyvox) Allergy Shortness Verified 03/13/25 12:10
of Breath
nystatin Allergy Rash Verified 03/13/25 12:10
Penicillins Allergy Shortness Verified 03/13/25 12:10
of Breath
Sulfa (Sulfonamide Allergy Hives Verified 03/13/25 12:10
Antibiotics)
sulfamethoxazole (From Allergy Hives Verified 03/13/25 12:10
Bactrim)
tramadol Allergy Anaphylaxis Verified 03/13/25 12:10
trimethoprim (From Bactrim) Allergy Hives Verified 03/13/25 12:10
Home Medications
clonidine HCl 0.1 mg tablet 0.3 mg PO TID Mental Health/Anxiety 07/27/18
gabapentin 300 mg capsule 900 mg PO Q8H mild Pain 10/27/18
bupropion HCl 150 mg 24 hr tablet, extended release 150 mg PO BID Depression 11/28/22
clopidogrel 75 mg tablet 75 mg PO DAILY Blood Clot Prevention/Tx 11/28/22
cyclobenzaprine 10 mg tablet 10 mg PO TIDPRN PRN muscle spasms 11/28/22
insulin aspart U-100 100 unit/mL (3 mL) subcutaneous pen 0 - 32 sliding scale dose SC AC Diabetes 03/13/23
insulin glargine 100 unit/mL (3 mL) subcutaneous pen (Lantus Solostar U-100 Insulin) 35 unit SC BID Diabetes 03/13/23
ferrous sulfate 325 mg (65 mg iron) tablet 325 mg PO DAILY Supplement 09/18/23
melatonin 3 mg tablet 9 mg PO HS Sleep 09/18/23
aripiprazole 10 mg tablet (Abilify) 10 mg PO DAILY 03/13/25
pantoprazole 40 mg tablet,delayed release (Protonix) 40 mg PO BID 03/13/25
sertraline 100 mg tablet 150 mg PO DAILY 03/13/25
therapeutic multivitamin 1 tab PO DAILY 03/13/25
thiamine HCl (vitamin B1) 100 mg tablet 100 mg PO DAILY 03/13/25
warfarin 5 mg tablet 5 mg PO QPM Blood Clot Prevention/Tx 03/13/25
Review of Systems
-
Unable to obtain full review of systems at this time due to: Other (Patient Non-Cooperative)
History Source: Patient
Constitutional: Reports Fatigue
EENT: Reports Sore Throat and Runny Nose
Respiratory: Reports Trouble Breathing
Cardiac: Reports Palpitations; Denies Chest Pain
Abdomen/GI: Reports Abdominal Pain, Nausea, Vomiting and Diarrhea; Denies Constipated
Musculoskeletal: Reports Joint Pain (Left big toe) and Joint Swelling (Left pointer finger)
Skin: Reports Itching (Full body)
Hematologic/Lymphatic: Reports Bruising (Left knee, after banging it while using the bathroom)
Psych: Reports Depression, Anxiety and Other (ADHD, Autism)
Physical Exam
Vital Signs
Vital Signs
Temp Pulse Resp BP Pulse Ox
98.7 F 149 32 151/85 99
03/13/25 16:00 03/13/25 16:15 03/13/25 16:15 03/13/25 16:00 03/13/25 14:45
Physical Exam
General: Well Developed, Well Nourished, Morbidly Obese and Other (Irritated, Screaming)
HEENT: NormoCephalic, Nose Appears Normal, Ears Appear Normal and Other (Poor dentition, missing several teeth)
Cardiac: S1/S2 and Tachycardia
GI: Soft, Non Tender and Other (Midline, well healed surgical scar)
Skin: Warm, Dry and Other (Skin excoriations from repeatedly scratching at her arms and neck and ears. No overt rashes.)
Neuro: Awake, Alert and Oriented
Psych: Agitated (Extremely agitated, screaming and blaming staff for 'calling the police on her', refusing all care unless given pain medications, threatening repeatedly to leave AMA)
Laboratory Results
-
03/13/25 12:58
Laboratory Results
Lactic Acid 1.2 mmol/L (0.7-2.0) 03/13/25 15:42
Total Bilirubin 0.3 mg/dl (0.2-1.3) 03/13/25 12:58
AST 14 U/L (14-36) 03/13/25 12:58
ALT 17 U/L (0-35) 03/13/25 12:58
Alkaline Phosphatase 167 U/L (38-126) H 03/13/25 12:58
Lipase 173 U/L (23-300) 03/13/25 12:58
Impression/Plan
-
IMPRESSION:
This is a 29 y/o female with pmhx of type 1 diabetes mellitus with noncompliance with her insulin who presented to the ED on 03/13/2025 after leaving [facility] ICU AMA earlier this morning and was found to be in DKA again.
PLAN:
Diabetic Ketoacidosis Secondary to Uncontrolled Type 1 Diabetes Mellitus
Abdominal Pain with Nausea, Vomiting and Diarrhea
-Patient left AMA from [facility] earlier this AM for DKA, presented only a few hours later with BG levels of 400+ again
-Per CT Scan Pelvis w/o contrast 03/08/2025 ([facility]): Mild circumferential wall thickening of the transverse colon without pericolonic inflammatory changes, likely related to mild nonspecific colitis versus underdistention. No pneumatosis or
portal venous gas. Small fat-containing umbilical hernia with nonspecific skin thickening measuring approximately 2 x 1.5 x 2.8cm. Correlate with direct visualization exclusive underlying infection. No evidence of drainable subcutaneous fluid
collection
-Anion gap on admission: 21 (Assuming bicarb of 5)
-VBG: pH 7.25, CO2 22, Bicarb 9.6
-Ordered 1 time 50mg Sodium Bicarb push and 1L IVF at 150mL/Hr
-Start IV insulin with rate of 0.1 units/kg/hr. Once anion gap closes x2, will transition to SQ insulin
-Meanwhile, check Glucose Q1h and BMP Q4h
-If blood glucose decreases too quickly, will add D5 fluids
-Will monitor
Polysubstance Abuse
-Patient reports recent use of fentanyl, 'Xani-bars', Ativan, Citalopram and Oxycodone as recently as this AM, though she had been hospitalized at [facility] up until this morning
-UDS today positive for only methadone, barbiturates and benzodiazepines. She was administered methadone this AM by [facility].
-She refuses buprenorphine
-S/p Dilaudid in the ED
-At this point, should aim to severely limit patient's narcotic use. Based upon Toxicology consult from [facility], her risk of withdrawal is very low due to how much time she has spent in the hospital.
-She ultimately would benefit highly from inpatient rehab, but it is incredibly unlikely she would agree to this as she has already threatened to leave AMA if not given pain medications.
-Ordered microdosing protocol with clonidine and zanaflex
Leukocytosis
-WBC on admission 13.5
-Possibly inflammatory reaction in the setting of DKA, but cannot disclude infection
-Pending urine cultures, blood cultures
Obesity
-Patient with BMI of 35.8 on admission
Diabetic Neuropathy
-Continue home Gabapentin 900mg TID
Insomnia
-Continue home Melatonin 9mg
Anxiety/Depression/Borderline Personality Disorder/ADHD (By Report) /Autism (By report)
-Patient on several outpatient medications for anxiety and depression
-Consulted psych on admission, will appreciate their insight into her case
Factor V Leiden with history of DVT of lower extremity
-Patient currently on Warfarin for clot prevention
-Coagulation studies pending
History of Left Index Finger Flexor Tenosynovitis
-History of incision/drainage of left trigger finger at [facility] in [place]
History of Hepatocellular Carcinoma
-Per [facility] records with CT scan on 03/08 showing 'partial right hepatic lobe hepatectomy'.
History of Left Eye Retinal Detachment Tear
History of Nephrolithiasis
--- NOTE | 2025-03-13 16:50 | PTCARENOTE ---
Received patient from ED, A&Ox4, Restless and agitated, RASS +3, hypersensitive to sound/light/environment, on RA, ST in 140s-150s, BP WNL, Right Femoral CVC triple lumen, on Insulin Drip @9.45 units/hr, NS @200mL/hr, GI w/ N/V, scant/small clear
vomit, NPO except Ice chips ONLY, continent and incontinent w/ Purewick, clear yellow urine.
Upon arrival to ICU room, patient was constantly yelling and screaming at staff at bedside, asking for pain meds and stated 'if not getting IV Dilaudid for pain, will take out central line and leave AMA'. Estimating Manager was at bedside assessing
patient, explaining and advising patient should not leave AMA at this time.
Patient refused all PO medications d/t N/V and stated will try to take one PO medication this evening.
[2025-03-13 17:04] LABS: Glucose - Point of Care 498 mg/dl (70-99)
--- NOTE | 2025-03-13 17:09 | CON.INTV ---
Consultation
Consultation Request
Date/Time Consultation Requested: 03/13/2025
Date/Time Consultation Performed: 03/13/2025
Requesting Provider: Dr. Carrera
Performing Provider: Dr. Leonidas Beckwith
Reason for Consultation: Diabetes ketoacidosis
Medical History
-
History of Present Illness:
29-year-old woman with history of type 1 diabetes-presented with elevated blood sugars.
Records reviewed, apparently patient said she had 14 admissions between December 2024 and February 2025 to various hospitals around the area.
Patient will not give straight history.
Patient apparently uses fentanyl/oxycodone which she buys on the streets.
'Patient feels that she is going through withdrawal'
Patient was admitted to [facility]-she left AMA today.
Previous to that admitted to [facility] when she left AMA from the emergency room.
Also visited [facility] 03/08/2025.
In February she left AMA from [place] detox.
-
Past Medical History
Past Medical History: Other (See assessment and plan)
Social History
Drug: Other (Dilaudid, benzos)
Family History
Family History: Unable to Obtain (Patient uncooperative)
Allergies / Home Medications
Allergies
Allergy/AdvReac Type Severity Reaction Status Date / Time
amoxicillin (Amoxicillin) Allergy Shortness Verified 03/13/25 12:10
of Breath
cephalexin Allergy tongue Verified 03/13/25 12:10
swelling/but
tolerated
cefepime,ceftriaxone,
etc.
haloperidol (From Haldol) Allergy Anaphylaxis Verified 03/13/25 12:10
haloperidol lactate (From Allergy Anaphylaxis Verified 03/13/25 12:10
Haldol)
Iodinated Contrast Media Allergy Itching Verified 03/13/25 12:10
ketorolac tromethamine (From Allergy Anaphylaxis Verified 03/13/25 12:10
Toradol)
linezolid (From Zyvox) Allergy Shortness Verified 03/13/25 12:10
of Breath
nystatin Allergy Rash Verified 03/13/25 12:10
Penicillins Allergy Shortness Verified 03/13/25 12:10
of Breath
Sulfa (Sulfonamide Allergy Hives Verified 03/13/25 12:10
Antibiotics)
sulfamethoxazole (From Allergy Hives Verified 03/13/25 12:10
Bactrim)
tramadol Allergy Anaphylaxis Verified 03/13/25 12:10
trimethoprim (From Bactrim) Allergy Hives Verified 03/13/25 12:10
Home Medications
�Medication �Instructions �Recorded �Confirmed �Last Taken �Type
clonidine HCl 0.1 mg tablet 0.3 mg PO TID Mental Health/Anxiety 07/27/18 03/13/25 03/13/25 History
gabapentin 300 mg capsule 900 mg PO Q8H mild Pain 10/27/18 03/13/25 03/13/25 History
bupropion HCl 150 mg 24 hr tablet, 150 mg PO BID Depression 11/28/22 03/13/25 03/13/25 History
extended release
clopidogrel 75 mg tablet 75 mg PO DAILY Blood Clot 11/28/22 03/13/25 03/13/25 History
Prevention/Tx
cyclobenzaprine 10 mg tablet 10 mg PO TIDPRN PRN muscle spasms 11/28/22 03/13/25 09/18/23 History
insulin aspart U-100 100 unit/mL 0 - 32 sliding scale dose SC AC 03/13/23 03/13/25 03/13/25 History
(3 mL) subcutaneous pen Diabetes
insulin glargine 100 unit/mL (3 35 unit SC BID Diabetes 03/13/23 03/13/25 03/13/25 History
mL) subcutaneous pen (Lantus
Solostar U-100 Insulin)
ferrous sulfate 325 mg (65 mg 325 mg PO DAILY Supplement 09/18/23 03/13/25 03/13/25 History
iron) tablet
melatonin 3 mg tablet 9 mg PO HS Sleep 09/18/23 03/13/25 03/12/25 History
aripiprazole 10 mg tablet (Abilify) 10 mg PO DAILY 03/13/25 03/13/25 03/13/25 History
pantoprazole 40 mg tablet,delayed 40 mg PO BID 03/13/25 03/13/25 03/13/25 History
release (Protonix)
sertraline 100 mg tablet 150 mg PO DAILY 03/13/25 03/13/25 03/13/25 History
therapeutic multivitamin 1 tab PO DAILY 03/13/25 03/13/25 03/13/25 History
thiamine HCl (vitamin B1) 100 mg 100 mg PO DAILY 03/13/25 03/13/25 03/13/25 History
tablet
warfarin 5 mg tablet 5 mg PO QPM Blood Clot 03/13/25 03/13/25 03/12/25 History
Prevention/Tx
Review of Systems
-
Unable to Obtain full review of systems at this time due to: Other (Difficult to obtain as the patient is poorly cooperating)
History Source: Patient
All other systems: Negative unless noted
Vitals / Labs / Diagnostic Testing
Vital Signs
Temp Pulse Resp BP Pulse Ox
98.7 F 149 32 151/85 99
03/13/25 16:00 03/13/25 16:15 03/13/25 16:15 03/13/25 16:00 03/13/25 14:45
Lab Data
03/13/25 12:58
Diagnostic Testing:
Physical Exam
-
HEENT: Normocephalic
Cardiovascular: S1/S2
Respiratory: Clear
GI: Soft
Neurology: Awake
Skin: Warm
Assessment
-
Diabetes ketoacidosis-noncompliant with insulin regimen and diet.
Initial bicarbonate less than 5
Blood sugar in the 600
Agitation/erratic behavior.
Urine tox screen positive for: Methadone barbiturates and benzodiazepine.
Drug-seeking behavior
History from previous record:
History of anemia
Cluster B personality disorder-psych evaluation 2019
Drug-seeking behavior
DVT
Factor V Leyden deficiency
Kidney stones
Previous pulmonary embolism-status post IVC filter
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
Previous history of left index finger flexor tenosynovitis-status post release at [facility]
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
Type 1 diabetes diagnosed at age 1
Diabetic neuropathy
History of left eye retinal detachment
Morbid obesity
Assessment and plan:
Critically ill with profound metabolic acidosis.
-
Trigger for DKA likely noncompliance.
Rule out infection as well.
-
Insulin drip DKA protocol
Patient did get bicarbonate in the emergency room.
Hourly Accu-Chek
IV fluid resuscitation-IV fluids will be adjusted per protocol
Every 2 hour BMPs
N.p.o. for now
-
Leukocytosis noted-possibly hemoconcentration
Abnormal UA: Started on ceftriaxone.
Urine culture, blood culture
Monitor for fevers
-
Drug-seeking behavior/possible withdrawal
Start Precedex titrate up
UDS positive for barbiturates, methadone and benzodiazepine.
History of personality disorder/ADD/anxiety/depression.
It is unclear whether patient was compliant with all her outpatient medications. Okay to restart when able.
Patient constantly asking for Dilaudid- she has received 2 doses. Continues to request 3 mg IV. She states that she uses much higher doses on the street.
Combative, complaining of nausea vomiting. Complaining of abdominal pain.
Psychiatry to evaluate patient-suspect most important part at this point as the patient will not cooperate
Multiple admissions leaving the hospital AGAINST MEDICAL ADVICE noted
Fall precautions
May need one-to-one
-
DVT abmgnbkelwi-Jgovwejr-jouyts INR-not clear whether she was taking consistently.
Heparin drip or Lovenox may be needed.
-
Critical care statement: A total of 36 minutes of critical care time was provided for this patient today. This includes management of unstable vital signs, evaluation of the patient at bedside, reviewing the patient's pertinent medical records
including ventilator settings, arterial blood gases, radiographs, microbiology, laboratory evaluations and discussion with primary team, critical care nursing, and respiratory therapy.

CT abdomen pelvis records:
03/08/25- Mild circumferential wall thickening of the transverse colon without pericolonic inflammatory changes, likely related to mild nonspecific colitis versus underdistention. No pneumatosis or portal venous gas.
Small fat-containing umbilical hernia with�nonspecific skin thickening measuring approximately 2 x 1.5 x 2.8 cm. Correlate with direct visualization exclude underlying infection. No evidence of drainable subcutaneous fluid collection.
[2025-03-13] MEDS: VALIUM INJECTION 2 MG IV (17:20)
--- NOTE | 2025-03-13 17:21 | EDRN ---
1240: Received patient from Triage via wheelchair. Patient screaming on arrival to room. Patient thrashing around stretcher screaming 'I am in DKA and sepsis. I am going through opiate and benzo withdrawal. I need to see the doctor now. You're going
to have to call the IV team to get an IV. I have had PICC lines,midlines and central lines but you're not putting any central line in me. I am dying. I need to see the doctor now. I just left [facility] 2 days ago from the ICU. I had to sign some
paper with risks on it. They wouldn't transfer me here.I need 4mg of Dilaudid. That's what they were giving me at [facility]. I use Fentanyl,Oxy's,Xanax and Ativan. I get it from my ex-boyfriend who's a drug dealer.'
1325: Right thigh IV placed by by ultrasound. Patient refusing to have IV placed anywhere else or to have a central line placed. Patient medicated with Versed 2mg IV.
1355: Patient with c/o itching 'all over'. No rash or hives seen. Patient with redness from scratching. notified. Patient medicated with Benadryl 50mg IV. Patient with contniued c/o 'belly button pain'. Patient screaming 'If I don't get
Dilaudid I am going to leave.' notified and into see the patient. Patient medicated with Dilaudid 2 mg IV.
1500: Patient insisting on drinking water. Explained to patient that she should not be drinking because of her nausea. Spoke to and gave patient a cup if ice with small amount of water in it.
1510: Patient found climbing off stretcher to go to the bathroom. Explained to patient that she can not walk to the bathroom because of the IV in her leg and that she recently received pain medicine. Patient stated 'I did it when I was at [facility]
and I am going to do it now. I am not using a bedpan.'
1515: Right thigh IV not flushing. +swelling when flushed. at bedside and placed right femoral TLC.
1530: Patient medicated with Bicarb 1 amp and Dilaudid 2mg IV. Insulin drip started.
1600: Patient medicated with Protonix 40mg IV for c/o 'burning in my throat after I vomited'. Patient started on Insulin at 9.45 units/HR
Report given to [facility] in ICU. Patient taken to room 3369 with Insulin drip and NSS infusing.
[2025-03-13] MEDS: PRECEDEX 100 IV ×2 (17:24→21:08)
--- NOTE | 2025-03-13 17:42 | W.PN.UPDATE ---
Update Note
Progress Note Update
One-time dose of 3 mg of IV Dilaudid will be given.
Hopefully will allow Precedex and other medications to start working and she is able to cooperate better with the staff.
Likely patient will leave AGAINST MEDICAL ADVICE.
[2025-03-13] MEDS: DILAUDID 3 MG IV (17:45)
[2025-03-13 18:14] LABS: Glucose - Point of Care 333 mg/dl (70-99)
[2025-03-13] MEDS: ROCEPHIN 1000 MG IV (18:29)
[2025-03-13] MEDS: STERILE WATER FOR INJECTION 10 ML IV (18:29)
[2025-03-13 19:10] LABS: Glucose - Point of Care 247 mg/dl (70-99)
--- NOTE | 2025-03-13 19:10 | PTCARENOTE ---
Received pt from dayshift RN. Pt is AAOx3, agitated, anxious, restless, uncooperative at times. Screaming at this RN, pt demanding for her Precedex gtt to be increased, pt informed that dayshift just increased medication and will be re-evaluated per
protocol. Pt screaming for the charge nurse and doctor, ICU APPLIED PSYCHOLOGY CHAIR in to see the pt, ordered Valium and Dilaudid (see MAR). Pt refusing PO mediations. Sinus tach on the monitor. Pt on RA O2 sat 96%, lungs diminished. Pt c/o N/V. Precedex and insulin
gtts (see worklist). Call [facility] in reach. Safe environment maintained.
[2025-03-13] MEDS: D5/0.45%NSS with KCL 20 MEQ 1000 IV (20:08)
[2025-03-13] MEDS: VALIUM INJECTION 10 MG IV (20:11)
[2025-03-13] MEDS: DILAUDID 1 MG IV (20:11)
[2025-03-13 20:19] LABS: Glucose - Point of Care 185 mg/dl (70-99)
[2025-03-13 20:36] LABS: INR 3.37; PT 33.9 Sec (11.4-14.6)
[2025-03-13 20:50] LABS: Blood Urea Nitrogen 9 mg/dl (7-17); Calcium 8.3 mg/dl (8.4-10.2); Carbon Dioxide 12 mmol/L (22-30); Chloride 107 mmol/L (98-107); Estimated Creatinine Clearance > 125 ml/min; Glucose 198 mg/dl (70-99); Potassium 4.3 mmol/L (3.5-5.1); Sodium 138 mmol/L (135-145); eGFR > 60.00
[2025-03-13 21:28] LABS: Glucose - Point of Care 163 mg/dl (70-99)
--- NOTE | 2025-03-13 21:40 | PTCARENOTE ---
US up at bedside. Pt states 'I will not get this done unless I get pain medication', ICU TREE TRIMMER notified, Dilaudid given (see MAR).
[2025-03-13 22:56] LABS: Glucose - Point of Care 139 mg/dl (70-99)
[2025-03-13 23:40] LABS: Glucose - Point of Care 137 mg/dl (70-99)
[2025-03-14] VITALS (10 sets, daily range): BP systolic 106–142; BP diastolic 58–89; BMI 35.5
[2025-03-14] MEDS: PRECEDEX 100 IV ×2 (00:12→06:06)
--- NOTE | 2025-03-14 00:16 | PTCARENOTE ---
Systems reviewed, no new changes in assessment. Pt asleep. Call [facility] in reach. Safe environment maintained.
[2025-03-14 00:25] LABS: Glucose - Point of Care 147 mg/dl (70-99)
[2025-03-14 01:02] LABS: Blood Urea Nitrogen 10 mg/dl (7-17); Calcium 7.8 mg/dl (8.4-10.2); Carbon Dioxide 19 mmol/L (22-30); Chloride 111 mmol/L (98-107); Estimated Creatinine Clearance 114 ml/min; Glucose 150 mg/dl (70-99); Potassium 4.4 mmol/L (3.5-5.1); Sodium 138 mmol/L (135-145); eGFR > 60.00
[2025-03-14] MEDS: D5/0.45%NSS with KCL 20 MEQ 1000 IV ×2 (01:13→06:04)
[2025-03-14 01:23] LABS: Glucose - Point of Care 131 mg/dl (70-99)
[2025-03-14 02:36] LABS: Glucose - Point of Care 162 mg/dl (70-99)
[2025-03-14 03:42] LABS: Glucose - Point of Care 272 mg/dl (70-99)
[2025-03-14 04:11] LABS: ALT (SGPT) 16 U/L (0-35); AST (SGOT) 14 U/L (14-36); Albumin 3.4 g/dl (3.5-5.0); Alkaline Phosphatase 135 U/L (38-126); Blood Urea Nitrogen 9 mg/dl (7-17); Calcium 7.5 mg/dl (8.4-10.2); Carbon Dioxide 19 mmol/L (22-30); Chloride 110 mmol/L (98-107); Estimated Creatinine Clearance > 125 ml/min; Glucose 215 mg/dl (70-99); Potassium 4.6 mmol/L (3.5-5.1); Sodium 137 mmol/L (135-145); Total Protein 5.8 g/dl (6.3-8.2); eGFR > 60.00
[2025-03-14 04:35] LABS: Glucose - Point of Care 162 mg/dl (70-99)
[2025-03-14 05:05] LABS: Hematocrit 30.1 % (37.0-47.0); Hemoglobin 9.7 g/dL (12.0-16.0); Mean Corp Hgb Conc. 32.2 g/dL (33.0-37.0); Mean Corpuscular Volume 80.1 fL (81.0-99.0); Platelet Count 247 10^3/uL (130-400); Red Cell Dist. Width 14.8 % (11.5-14.5)
[2025-03-14] MEDS: DILAUDID 2 MG IV (05:07)
[2025-03-14 05:40] LABS: Glucose - Point of Care 177 mg/dl (70-99)
[2025-03-14 06:41] LABS: Glucose - Point of Care 158 mg/dl (70-99)
--- NOTE | 2025-03-14 07:34 | W.PN.HOSP.TC ---
Today's Communication/Plan
-
Patient left AMA
Assessment / Plan
Assessment / Plan
IMPRESSION:
This is a 29 y/o female with pmhx of type 1 diabetes mellitus with noncompliance with her insulin who presented to the ED on 03/13/2025 after leaving [facility] ICU AMA earlier in the AM on 03/13 and was found to be in DKA again.
PLAN:
Polysubstance Abuse
-Patient reports recent use of fentanyl, 'Xani-bars', Ativan, Citalopram and Oxycodone as recently 03/13, though she had been hospitalized at [facility] up until that same morning
-UDS 03/13 positive for only methadone, barbiturates and benzodiazepines. She was administered methadone that same AM by [facility].
-She refuses buprenorphine
-S/p Dilaudid in the ED and in the ICU. In total she did receive 12mg of Dilaudid during this admission
-At this point, should aim to severely limit patient's narcotic use. Based upon Toxicology consult from [facility], her risk of withdrawal is very low due to how much time she has spent in the hospital. If she were to represent to this hospital,
COWS protocols or buprenorphine microdosing protocols should be used above any other individual, one time doses of medications.
-She ultimately would benefit highly from inpatient rehab, but left AMA before she could be seen by [facility] or psychiatry.
Diabetic Ketoacidosis - Resolved
Uncontrolled Type 1 Diabetes Mellitus
Abdominal Pain with Nausea, Vomiting and Diarrhea
-Patient left AMA from [facility] earlier in the AM on 03/13 for DKA, presented only a few hours later with BG levels of 400+ again
-Per CT Scan Pelvis w/o contrast 03/08/2025 ([facility]): Mild circumferential wall thickening of the transverse colon without pericolonic inflammatory changes, likely related to mild nonspecific colitis versus underdistention. No pneumatosis or
portal venous gas. Small fat-containing umbilical hernia with nonspecific skin thickening measuring approximately 2 x 1.5 x 2.8cm. Correlate with direct visualization exclusive underlying infection. No evidence of drainable subcutaneous fluid
collection
-Anion gap on admission: 21 (Assuming bicarb of 5). S/p 1 time dose of 50mg Sodium Bicarb in the ED
-As of 1:00AM this AM, the gap was closed and remained closed on subsequent BMPs. Patient subsequently refused SC insulin without first being given narcotics. She was offered buprenorphine per microdosing protocol, which she refused. At that time,
she declared her intent to leave AMA
-Explanation that leaving AMA without insulin could lead to injury and even . She vocalized understanding, and retracted her permission to contact her family.
-Left message at Dr. Fox's office to inform her PCP of this admission and her leaving AMA
-Provided physical scripts of her home doses of insulin to her and expressed it was urgent that she resume SC insulin. She took these scripts with her when she left.
-Will monitor
Leukocytosis
-WBC on admission 13.5
-Possibly inflammatory reaction in the setting of DKA, but cannot disclude infection
-Pending urine cultures, blood cultures
Obesity
-Patient with BMI of 35.8 on admission
Diabetic Neuropathy
-Continue home Gabapentin 900mg TID
Insomnia
-Continue home Melatonin 9mg
Anxiety/Depression/Borderline Personality Disorder/ADHD (By Report) /Autism (By report)
-Patient on several outpatient medications for anxiety and depression
-Consulted psych on admission, unfortunately they were not able to see her before she left AMA.
Factor V Leiden with history of DVT of lower extremity
-Patient currently on Warfarin for clot prevention
-Coagulation studies pending
History of Left Index Finger Flexor Tenosynovitis
-History of incision/drainage of left trigger finger at [facility] in [place]
History of Hepatocellular Carcinoma
-Per [facility]'s records with CT scan on 03/08 showing 'partial right hepatic lobe hepatectomy'.
History of Left Eye Retinal Detachment Tear
History of Nephrolithiasis
Anticipated Discharge: Today (Patient left AMA)
Subjective/Interval History
-
Date of Service: March 14, 2025
Before I could see her this AM, sonali jean was called to her room at around 8:40AM. Security was gathered when I arrived and speaking with her. By nursing staff report she had become increasingly vocal, agitated and verbally abusive towards
staff. She complained of right sided abdominal pain at that time, nausea, vomiting, diarrhea. Full details of that encounter can be seen in the Update Note from today.
Importantly, she refused to accept SC insulin despite multiple attempts to offer it to her and multiple explanations about why it was important for her to continue to take it. She initially stated that her mother would bring her home insulin, then
said she did not have insulin because her Pharmacy closed ([facility]), then stated she had no money. She repeatedly demanded IV pain medications, and repeatedly refused buprenorphine, stating that it would cause her to go through withdrawal. She
stated that she would be leaving AGAINST MEDICAL ADVISE, which she had also done from [facility] earlier in the day on 03/13 for similar reasons. She stated she did not wish for us to contact her father anymore, but did provide us with the name of
her PCP, Dr. Fox in [place].
Objective Data
-
Labs:
Laboratory Results
03/13/25 03/13/25 03/14/25
18:20 20:06 00:12
WBC
Hgb
Hct
Plt Count
PT 33.9 H
INR 3.37
Sodium Cancelled 138 138
Potassium Cancelled 4.3 4.4
Chloride Cancelled 107 111 H
Carbon Dioxide Cancelled 12 L* 19 L
BUN Cancelled 9 10
Creatinine Cancelled 0.7 0.8
Glucose Cancelled 198 H 150 H
Calcium Cancelled 8.3 L 7.8 L
Total Bilirubin
AST
ALT
Alkaline Phosphatase
03/14/25 03/14/25 03/14/25
03:32 03:32 03:32
WBC 6.8
Hgb 9.7 L D
Hct 30.1 L
Plt Count 247 D
PT
INR
Sodium 137
Potassium 4.6
Chloride 110 H
Carbon Dioxide 19 L
BUN 9
Creatinine 0.7
Glucose 215 H
Calcium 7.5 L
Total Bilirubin Cancelled < 0.1 L
AST Cancelled 14
ALT Cancelled
Alkaline Phosphatase
03/14/25 03/14/25 03/14/25
03:32 03:32 08:00
WBC
Hgb
Hct
Plt Count
PT
INR
Sodium Cancelled
Potassium Cancelled
Chloride Cancelled
Carbon Dioxide Cancelled
BUN Cancelled
Creatinine Cancelled
Glucose Cancelled
Calcium Cancelled
Total Bilirubin
AST
ALT 16
Alkaline Phosphatase Cancelled 135 H
03/14/25 03/14/25
12:00 16:00
WBC
Hgb
Hct
Plt Count
PT
INR
Sodium Cancelled Cancelled
Potassium Cancelled Cancelled
Chloride Cancelled Cancelled
Carbon Dioxide Cancelled Cancelled
BUN Cancelled Cancelled
Creatinine Cancelled Cancelled
Glucose Cancelled Cancelled
Calcium Cancelled Cancelled
Total Bilirubin
AST
ALT
Alkaline Phosphatase
Vital Signs:
Vital Signs
Temp Pulse Resp BP Pulse Ox
98.1 F 74 15 118/68 97
03/13/25 22:50 03/14/25 07:00 03/14/25 07:00 03/14/25 07:00 03/14/25 07:00
I&O
03/13/25 03/14/25 03/15/25
06:59 06:59 06:59
Intake Total 3216.3 / 3453.7 237.4 / 237.4
Balance 3216.3 / 3453.7 237.4 / 237.4
Review of Systems
-
Unable to obtain full review of systems at this time due to: Other (Patient refusal)
History Source: Patient
Abdomen/GI: Reports Abdominal Pain (Initially right sided, then all over), Nausea, Vomiting and Diarrhea
Physical Exam
-
General: Well Developed, Well Nourished and Obese
HEENT: Normocephalic and Atraumatic
GI: Soft, Nontender (Initially nontender in left lower, left upper, middle, and right upper quadrant. Patient reported a large amount of pain on tenderness of right lower quadrant to mild palpation, followed by tenderness to gentle touch of all
abdominal donis. No associated guarding or rigidity.), Nondistended, Normal Bowel Sounds and No Hernias
Musculoskeletal: No Edema
Skin: Warm and Dry
Neuro: Awake, Alert and Oriented
Psych: Agitated and Intact Judgement/Insight
[2025-03-14 07:46] LABS: Glucose - Point of Care 146 mg/dl (70-99)
[2025-03-14 08:39] LABS: Glucose - Point of Care 144 mg/dl (70-99)
--- NOTE | 2025-03-14 08:50 | PTCARENOTE ---
Went in to see pt at her request. Pt reported having pain, when told she would not be given narcotics without taking subutex as ordered. She started yelling, cursing at myself and asking for another nurse and requesting to speak to charge nurse
and assessment services manager. Pt has been refusing to take medications. Refusing to do things until she receives dilaudid. Charge nurse went in to give pt lantus and she refused until physician gave her dilaudid. Iza jean called and residents and security in
with pt.
--- NOTE | 2025-03-14 09:13 | W.PN.UPDATE ---
Addendum entered and electronically signed by Eli Carrera MD 03/14/25 13:51:
Correction code purple not' code corporal'
Seen and examined the patient with the resident. Agree with the plan and notes from the resident
Addendum entered and electronically signed by Eli Carrera MD 03/14/25 13:50:
Seen and examined the patient after the code Corporal This morning. She looks much better than yesterday awake alert and able to communicate better. She did not want to get Lantus insulin and kept saying that she wanted IV insulin and that her
mother would bring the insulin pump. Later on she was not even sure if mother would bring the insulin pump. She kept asking for IV opiates which be declined. We discussed about going through microdosing protocol which she does not want. She
wanted to leave AGAINST MEDICAL ADVICE which she is known to do as soon as she gets better. Her gap has closed and BMP has improved. My exam was mostly unremarkable I did not feel any incarcerated umbilical hernia which the she thought she had.
She expressed wishes to leave AGAINST MEDICAL ADVICE we had left a message for Dr. Fox's office who she said was her PCP
Patient clearly stated that she does not want us to communicate with her father.
She is aware about the complication/ramifications of leaving AGAINST MEDICAL ADVICE including . A prescription for insulin was given to the patient
total time over 50 min
Original Note:
Update Note
Progress Note Update
Was called this AM for a code purple around 8:40AM. I arrived at the room where security was already gathered and speaking with her. By nursing staff report she had become increasingly vocal and agitated, demanding more doses of Dilaudid and Valium.
She was being verbally abusive towards staff as well, calling them derogatory and insulting names. Security left the room and she requested to speak with her doctor. I entered the room with Dr. Hoover, and she told us she was still experiencing
right sided abdominal pain/nausea/vomiting with reportedly further episodes of diarrhea and vomiting since last night. On physical exam, her bowel sounds were normal and her abdomen was initially soft and nontender in the left quadrants and upper
quadrant, with patient reporting extreme pain int he right lower quadrant on mild palpation. At this point, she also reported extreme pain on mild palpation of the left lower quadrant as well.
We informed her that we suspected her symptoms were most likely secondary to uncontrolled diabetes, and at that time her nurse entered the room with her SC insulin. She refused it, saying that her mother was going to bring her home insulin and she
wanted that instead. We explained that we recommended she take the SC insulin now, as she was unable to state when her mother would be by. She then later stated that she did not have her insulin at all anymore, because the [facility] ED lost it
(She was at [facility]). When we asked her again to take her insulin she stated she instead wanted more pain medication and zofran. When asked one more time to take insulin, she calmly stated, 'No, I'm leaving.'
Dr. Carrera arrived in the room and once more recommended she take insulin and not leave AMA. It was explained to her the risks of her signing out AMA including . We attempted to find out who her PCP was, but she was only able to say that she
went to a doctor in [place] or [facility]. She states she used to use [facility] for a pharmacy, but as [facility] has since closed she does not currently have a pharmacy. She was provided with physical scripts for her home doses of Lantus and Insulin
Aspart sliding scale.
Full progress note and Discharge summary to follow.
--- NOTE | 2025-03-14 09:30 | PTCARENOTE ---
Insulin, ivf and precedex stopped as pt leaving ama once case management can make arrangements for a ride.
--- NOTE | 2025-03-14 09:54 | PTCARENOTE ---
pt was offered to brush her own teeth or have staff and she refused
--- NOTE | 2025-03-14 10:04 | PTCARENOTE ---
Pt has refused to sign ama papers. VAT team is currently at bedside to remove tlc. Prescriptions for insulin were provided to patient and placed in her pink bag.
--- NOTE | 2025-03-14 10:30 | VATNOTE ---
Femoral line pulled prior to discharge, 30 minutes of pressure held due to bleeding.
--- NOTE | 2025-03-14 10:38 | PTCARENOTE ---
TLC was removed by VAT team, dressing c/d/i at time of discharge. Pt was given her home medications, prescriptions for insulin and belonging from room and was escorted to lobby by security.
--- NOTE | 2025-03-14 11:03 | CM ---
Patient signed out AMA. Mother refused to transport patient. Called father whose voice mail was full. provided a [place] to train station and $10.00 for transport.
[2025-03-14 11:06] LABS: Glycohemoglobin (HgbA1c) 8.8 % (4.0-5.6)
--- NOTE | 2025-03-14 14:07 | W.DCSUMMARY ---
Discharge Summary
Discharge Data
Date of Admission: 03/13/25
Date of Discharge: 03/14/25
-
Pending Results: No
Hospital Course
Discharging Physician : Dr. Carrera
Disposition : Fair
Primary care physician : Dr. Agapito Lainez
Principal Discharge diagnosis : Diabetic Ketoacidosis
Chronic Discharge diagnosis :
Hospital Course :
This is a 29 y/o female with pmhx of morbid obesity, type 1 diabetes mellitus, anxiety, depression, Factor V Leiden with History of Lower Extremity DVT, and polysubstance abuse. By patient's report, she began to feel nauseous with vomiting and
abdominal pain under her belly button that radiated to her right side, prompting her to visit [facility]. She reports that she had run out of insulin a few days prior to this, and at [place] had been admitted to the ICU for DKA. However,
she then reports she left [place] AMA on Thursday night. She states on Thursday night she went to her Mom's house, then her Father's house on Thursday. She continued to feel midline abdominal pain radiating to her right side with nausea, vomiting,
and now diarrhea with 18 reported bowel movements leading up to her admission. She also endorsed shortness of pain, full body itching and 'feeling like she is dying'. She reports her last use of 'Xani-Bars', Fentanyl, Citalopram, Ativan and
oxycodone were just prior to her admission.
An extensive chart review was performed and revealed she was seen at [facility], but left AMA on 03/06. On 03/08 she presented to [facility] where she left AMA again on 03/10. She was then seen at [facility] on 03/11 for treatment of
opioid/benzo withdrawal. By chart review, she was hyperglycemic at that time but not noted to be in DKA. She left the ED after being denied narcotics, and several hours later presented to [facility] location with labs concerning for DKA
(Glucose 792, CO2 11, AG 21, HBH 4.88). Rapid Drug screen was positive for barbiturates and benzodiazepines only. She was admitted to the ICU and was loaded with 10mg/kg of phenobarbital and 25mg IV Benadryl, and overnight was placed on Precedex
infusion for agitation. Her anion gap closed on 03/12, and she was transitioned to non-DKA insulin drip and an attempt was made to wean her off Precedex with a RASS goal of 0. Toxicology was consulted, and determined that she had been extensively
hospitalized for the last several months with minimal time out of the hospital and thus had a low risk for complicated benzodiazepine withdrawal, thus recommended avoiding IV opioids, IV diphenhydramine, and IV benzodiazepines unless clinically
indicated. On the morning of 03/13, she was fully weaned off Precedex and became irate. Loperamide and Zofran were ordered due to her concerns of diarrhea and nausea. She was given methadone 30mg at the advice of Toxicology, and immediately following
began 'screaming at staff that she [was] leaving the hospital'. According to the quick note on 03/13/2025 at 10:53AM, she demanded to leave AMA despite warnings that she was still receiving IV insulin infusion. She denied any new prescriptions and
left AMA after affirming she understood the risks of leaving AMA. It appears that she presented to the [place] ED only a few hours later through unknown transportation means.
In the [facility] ED she was found to have an anion gap of 21 with a bicarbonate <5 and a blood glucose unreadable on POC monitors. She initially refused IV access unless she was given Dilaudid. She was given 50mg Sodium Bicarbonate and 1L NS
and was admitted to the ICU for insulin drip. Overnight by nursing staff report she was increasingly agitated and belligerent, demanding more pain medications, IV Benadryl, Valium and Precedex. Her anion gap closed at 1:00AM on 03/14 and remained
closed on successive BMPs. When she was informed she could be transitioned to SC insulin, she refused to do so without further pain medications and stated that she was going to leave AGAINST MEDICAL ADVISE. It was repeatedly explained to her that
doing so could cause her to go back into diabetic ketoacidosis again. She vocalized understanding that this may lead to injury and even . She was given physical scripts for insulin according to her home doses and LEFT AGAINST MEDICAL ADVISE.
She was encouraged to contact her primary care physician to see them in less than 1 week.
Important imaging findings : N/a
Procedure findings : N/a
Discharge Plan
-
Patient Disposition: Against Medical Advice
Discharge Diagnosis/Procedures: Diabetic Ketoacidosis (Type 1 Diabetes Mellitus)
Condition: Fair
Diet: Diabetic, Carb Controlled
Activity: No restrictions
Driving Restrictions: As prior to admission
Bathing Restrictions: None
Referrals:
UNKNOWN - PT DOES,NOT KNOW [Family Provider]
Additional Discharge Medication Instructions: You are leaving the hospital with physical prescriptions for your home doses of Insulin. You were unable to provide us with a pharmacy to electronically transmit these to. We STRONGLY ADVISE you to
immediately go to a pharmacy and give them the prescriptions for Insulin Aspart and Insulin Glargine so you do not go without insulin. Going without insulin may result in injury up to and including .
We STRONGLY ENCOURAGE you to follow up with your primary care physician as well. We recommend you do so as early as possible, ideally today or tomorrow.
Prescriptions:
New
insulin glargine [Lantus Solostar U-100 Insulin] 100 unit/mL (3 mL) insulin pen
35 unit SC BID Qty: 21 0RF
insulin aspart U-100 100 unit/mL (3 mL) insulin pen
1 sliding scale dose SC DIRECTED Qty: 15 0RF
Continued
clonidine HCl 0.1 MG tablet
0.3 mg PO TID
gabapentin 300 MG capsule
900 mg PO Q8H
clopidogrel 75 mg tablet
75 mg PO DAILY
bupropion HCl 150 mg tablet extended release 24 hr
150 mg PO BID
melatonin 3 mg Tablet
9 mg PO HS
ferrous sulfate 325 mg (65 mg iron) Tablet
325 mg PO DAILY
sertraline 100 mg Tablet
150 mg PO DAILY
thiamine HCl (vitamin B1) 100 mg Tablet
100 mg PO DAILY
therapeutic multivitamin Tablet
1 tab PO DAILY
pantoprazole [Protonix] 40 mg Tablet,Delayed Release (Dr/Ec)
40 mg PO BID
aripiprazole [Abilify] 10 mg Tablet
10 mg PO DAILY
warfarin 5 mg tablet
5 mg PO QPM
Held
cyclobenzaprine 10 mg tablet
10 mg PO TIDPRN PRN (Reason: muscle spasms)
Hold Instructions: Resume on 03/19/26. Resume only after discussion with your primary care provider.
insulin aspart U-100 100 unit/mL (3 mL) Insulin Pen
0 - 32 sliding scale dose SC AC
Hold Instructions: Resume on 03/12/26. See new prescription
insulin glargine [Lantus Solostar U-100 Insulin] 100 unit/mL (3 mL) Insulin Pen
35 unit SC BID
Hold Instructions: Resume on 03/09/28. See new prescription for refill
Discharge Date and Time
Discharge Date/Time: 03/14/25 10:36
Print Language: MAURITIAN
== END 2025-03-14 10:36 | disposition left against medical advice (07) | DRG 638 ==
LOC: ICU 15:30
PROVIDERS: Emergency Medicine; ADMITTING PHYSICIAN Hospitalist; CONSULT PHYSICIAN Internal Medicine Critical Care Medicine; EMERGENCY PHYSICIAN Student in an Organized Health Care Education/Training Program
DX: E10.10 Type 1 diabetes mellitus with ketoacidosis without coma (principal); D68.51 Activated protein C resistance; F84.0 Autistic disorder; E10.40 Type 1 diabetes mellitus with diabetic neuropathy, unspecified; F11.10 Opioid abuse, uncomplicated; Z91.148 Patient's other noncompliance with medication regimen for other reason; Z79.4 Long term (current) use of insulin; F41.9 Anxiety disorder, unspecified; F32.A Depression, unspecified
CPT/HCPCS: 36556; 71045; 80048; 80053; 80306; 80307; 81003; 81015; 82010; 82077; 82248; 82805; 82962; 83036; 83605; 83690; 84703; 85025; 85027; 85610; 87040; 87077; 87086; 93970; 96374; 96375; 99291